=== PATIENT | male | born 1995 | race Asian ===

== ENCOUNTER 2019-12-28 14:00 | Outpatient (REF) | payer MEDICAID, SELFPAY | END 2019-12-28 14:01 | disposition home or self-care (01) | LOC: HO.LAB 14:00 | PROVIDERS: Visit Provider Internal Medicine | DX: Z20.828 Contact with and (suspected) exposure to other viral communicable diseases (principal) | CPT/HCPCS: C9803; U0003 ==

== ENCOUNTER 2020-03-21 23:15 | Emergency (ER) | payer MEDICAID, SELFPAY ==
[2020-03-21 23:33] VITALS: BP 154/92; PULSE 198; RESP 18; TEMP 36.5; O2SAT 96
[2020-03-22 00:05] VITALS: BP 143/72; PULSE 89; RESP 16; TEMP 37.4; O2SAT 97; BMI 85.2
--- NOTE | 2020-03-22 01:48 | ED.NAVMDI ---
HPI - Nausea/Vomiting/Diarrhea General Chief complaint: Nausea/Vomiting/Diarrhea Stated complaint: NAUSEA/VOMITING DUE TO EATING WEED GUMMIES Time Seen by Provider: 03/22/20 00:13 Source: patient Mode of arrival: ambulatory History of Present Illness HPI Narrative: This is a 24-year-old male brought in by his mother after he ate some marijuana gummies had approximately 8:30 p.m. this evening along with his melatonin. He states that he woke up and felt very nauseous with a couple of episodes of nonbloody vomiting and feeling dizzy. Otherwise, he denies any recent illnesses, fevers, chills. Related Data Previous Rx's Medication Instructions Recorded ondansetron HCl [Zofran] 4 mg PO Q8H PRN #4 tab 03/22/20 Allergies Allergy/AdvReac Type Severity Reaction Status Date / Time No Known Allergies Allergy Verified 03/22/20 00:05 Review of Systems Review of Systems: Pertinent positives and negatives as stated in HPI 10 point review of systems is otherwise negative. PMFSH Past Medical History Source: nursing notes reviewed Medical History No known health problems Social History Social History Alcohol intake: never Smoking Status: Never smoker Advance Directives: No Physical Exam Vital Signs: Vital Signs: Last Vital Signs Temp 99.3 F 03/22/20 00:05 Pulse 89 03/22/20 00:05 Resp 16 03/22/20 00:05 BP 143/72 H 03/22/20 00:05 Pulse Ox 97 03/22/20 00:05 Body Mass Index 85.2 VITAL SIGNS: Reviewed. GENERAL: Well developed, well nourished, in no acute distress. HEAD: Normocephalic/atraumatic, EYES: PERRLA, EOMI EARS: Ext canals without abnormality NOSE: Nares patent bilateral OROPHARYNX: no oral lesions noted, posterior pharynx clear NECK: Supple, no adenopathy LUNGS: Normal breath sounds. No adventitious sounds or accessory muscle use. SpO2<96> CARDIOVASCULAR: Regular rate and rhythm without noted murmurs ABDOMEN: Soft, non-tender, non-distended with bowel sounds. NEUROLOGIC: Drowsy but easily arousable and oriented x 4. Course Course Course Narrative: This is a 24-year-old male with history and clinical presentation consistent with minor marijuana intoxication that has completely resolved on re-evaluation. Patient is now tolerating oral intake and ambulating with a steady gait. He has a safe ride home with his mother and will be discharged in stable condition. Discharge Plan Discharge Clinical Impression: Cannabis intoxication Qualifiers: Complication of substance-induced condition: uncomplicated Qualified Code(s): F12.920 - Cannabis use, unspecified with intoxication, uncomplicated Patient Disposition: Home, Self-Care Instructions: Cannabis Abuse (ED) Additional Instructions: Please avoid eating marijuana gummies in the future. Return to the emergency department if you experience any acute worsening of your symptoms. Prescriptions: New ondansetron HCl [Zofran] 4 mg tablet 4 mg PO Q8H PRN (Reason: nausea and vomiting) Qty: 4 RF: 0 Referrals: Physician,None [Primary Care Provider] - 2 days Stand Alone Forms: Work/School Release
--- NOTE | 2020-03-22 02:09 | PC.NURSE ---
PT TOLERATING PO FLUIDS. REQUESTING WORK NOTE. NOTIFIED.
== END 2020-03-22 02:50 | disposition home or self-care (01) ==
PROVIDERS: Emergency Provider Student in an Organized Health Care Education/Training Program
DX: F12.920 Cannabis use, unspecified with intoxication, uncomplicated (principal); R11.2 Nausea with vomiting, unspecified; Z79.899 Other long term (current) drug therapy
CPT/HCPCS: 99283; 99284

== ENCOUNTER 2020-04-14 12:08 | Emergency (ER) | payer MEDICAID, SELFPAY ==
--- NOTE | ~2020-04-14 | XR_ITS ---
EXAMINATION: XR CHEST CLINICAL INFORMATION: Dyspnea COMPARISON: Previous chest x-ray May 2016 TECHNIQUE: 2 views of the chest were obtained. FINDINGS: No significant abnormality is noted involving the heart, lungs, mediastinum, bony thorax or soft tissues. XR/XR chest 2V IMPRESSION: Unremarkable examination.
[2020-04-14 12:22] VITALS: BP 159/89; PULSE 90; RESP 18; TEMP 37.1; O2SAT 98; BMI 38.6
[2020-04-14 17:00] VITALS: BP 164/96; PULSE 84; RESP 18; TEMP 36.8; O2SAT 99
--- NOTE | 2020-04-14 17:34 | ED.SOB ---
HPI - SOB/Dyspnea General Chief Complaint: Dyspnea Stated Complaint: DIFF BREATHING Time Seen by Provider: 04/14/20 13:35 Source: patient Mode of arrival: ambulatory History of Present Illness HPI Narrative: 24-year-old male with no significant past medical history presenting to the ED complaining of mild difficulty breathing x1 week with associated dry cough. Denies chest pain, pain with inspiration, nausea/vomiting, LE edema, history of blood clots, smoking, sick contacts MD elicited complaint: shortness of breath and cough Related Data Previous Rx's Medication Instructions Recorded ondansetron HCl [Zofran] 4 mg PO Q8H PRN #4 tab 03/22/20 Allergies Allergy/AdvReac Type Severity Reaction Status Date / Time No Known Allergies Allergy Verified 03/22/20 00:05 Review of Systems Review of Systems: Constitutional: No Fever, No Chills Cardiovascular: No Chest Pain, + SOB Respiratory: + Cough, No Sputum, No Wheezing Gastrointestinal: No Nausea, No Vomiting, No Diarrhea, No Abdominal pain Genitourinary: No Dysuria, No Hematuria Musculoskeletal: No joint pain, No Myalgias Skin: No Skin Lesions, No rash Yes all other systems are reviewed and are negative [facility] Past Medical History Attestation statement: The following information was validated with the patient. Medical History No known health problems Social History Social History Alcohol intake: never Smoking Status: Never smoker Use of substances other than those prescribed or required for medical reasons: No Advance Directives: No Advance Directives Information Provided: No Physical Exam Vital Signs: Vital Signs: Last Vital Signs Temp 98.2 F 04/14/20 17:00 Pulse 84 04/14/20 17:00 Resp 18 04/14/20 17:00 BP 164/96 H 04/14/20 17:00 Pulse Ox 99 04/14/20 17:00 Body Mass Index 38.6 Const: General: cooperative, healthy appearing, comfortable, no acute distress, well developed, alert, awake and Physically active Orientation/consciousness: patient oriented x3 Limitations: no limitations HENMT: Head: Yes normal to inspection Ears: hearing grossly normal bilaterally General nose exam: Normal external nose present Face and sinus: Yes normal facial exam Eyes: General: appearance normal, both eyes and all related structures EOM: EOMs intact bilaterally Neck: Neck: Yes normal visual inspection Resp: Effort & Inspection: normal respiratory effort Auscultation: clear to auscultation bilaterally, no rales, no rhonchi and no wheezes Cardio: Rate: regular rate Heart sounds: S1 normal heart sound present and S2 normal heart sound present Skin: Rashes: no rashes Wounds: no wounds Neuro: General: patient oriented x3 Gait exam (Neuro): Normal gait present Extrem: General: Yes normal to inspection and Yes no pedal edema Course Course Course Narrative: XR chest 2V IMPRESSION: Unremarkable examination. -- COVID-19 positive today > likely re-infection as last COVID-19 positive on 12/28/2019 MDM - SOB/Dyspnea MDM Narrative Medical decision making narrative: 24-year-old male with no significant past medical history presenting to the ED complaining of mild difficulty breathing x1 week with associated dry cough. On exam VSS, NAD/well-appearing, lungs CTA, no edema. Concern for viral syndrome/COVID-19. Low concern for ACS/PE, CHF, or bacterial infection Plan: CXR, COVID-19 testing Medical Records Attestation: I reviewed the patient's medical records. Lab Data Labs: Lab Results 04/14/20 Range/Units 17:17 Coronavirus (PCR) POSITIVE A (Negative) Influenza Type A (PCR) NEGATIVE (Negative) Influenza Type B (PCR) NEGATIVE (Negative) RSV RNA Qual (PCR) NEGATIVE (Negative) Discharge Plan Discharge Clinical Impression: COVID-19 Instructions: COVID-19 (Coronavirus Disease 2019) (ED) Additional Instructions: If you have constant or worsening chest pain, shortness of breath, or fever unresolved with Tylenol or Motrin at home return to the ED Use inhaler at home as needed At this time you will be okay for discharge. Please plan for self quarantine for 10- 14 days. Do not expose yourself to others. You may not go to work. Please continue to follow cold instructions and wash your hands frequently. You may take Tylenol as directed on the bottle for pain or fever. CDC Guidelines for home isolation: - Stay away from others - WEAR A MASK if you are sick AND STAY HOME - Cover your mouth and nose with a tissue when you cough or sneeze. Dispose of tissues in a lined trash can and wash your hands immediately with soap and water for at least 20 seconds. If soap and water are not available, clean hands with alcohol-based hand machine operator general that contains at least 60% alcohol. - Clean your hands often with soap and water for at least 20 seconds - Avoid touching your eyes, nose and mouth with unwashed hands - Do not share dishes, drinking glasses, cups, eating utensils, towels, or bedding with other people in your home. After using these items, wash them thoroughly with soap and water or put in the wine maker. - Clean high-touch surfaces in your isolation area ( sick room and bathroom) every day; let a caregiver clean and disinfect high-touch surfaces in other areas of the home. Clean the area or item with soap and water or another detergent if it is dirty. Then, use a household disinfectant. - Limit contact with pets and animals: If you must care for a pet, wash your hands before and after interacting with them) Prescriptions: No Action ondansetron HCl [Zofran] 4 mg tablet 4 mg PO Q8H PRN (Reason: nausea and vomiting) Qty: 4 RF: 0 Referrals: Physician,None [Primary Care Provider] - 2 days Stand Alone Forms: Work/School Release
[2020-04-14] MEDS: Benzonatate 100 MG CAPSULE 200 MG PO (18:00)
[2020-04-14 18:03] LABS: Influenza A PCR NEGATIVE (Negative); Influenza B PCR NEGATIVE (Negative); Resp Syncy Virus RNA Qual PCR NEGATIVE (Negative); SARS COV2 PCR INHOUSE POSITIVE (Negative)
[2020-04-14] MEDS: Albuterol Sulfate 90 MCG 8 GM INHALER 4 PUFF INHALE (18:44)
== END 2020-04-14 18:55 | disposition home or self-care (01) ==
PROVIDERS: Physician Assistant; Emergency Provider Emergency Medicine
DX: U07.1 COVID-19 (principal); R06.00 Dyspnea, unspecified; R05 Cough
CPT/HCPCS: 0241U; 36415; 71046; 99284

== ENCOUNTER → 2020-11-07 11:13 | Outpatient (BNVA) | payer OTHER, SELFPAY | PROVIDERS: Visit Provider Internal Medicine | DX: S97.82XA Crushing injury of left foot, initial encounter (principal); W22.8XXA Striking against or struck by other objects, initial encounter | CPT/HCPCS: 73630; 99203 ==

== ENCOUNTER → 2020-11-12 14:37 | Outpatient (BNVA) | payer OTHER, SELFPAY | PROVIDERS: Visit Provider Physician Assistant Medical | DX: S97.82XA Crushing injury of left foot, initial encounter (principal); X58.XXXA Exposure to other specified factors, initial encounter | CPT/HCPCS: 99213 ==

== ENCOUNTER 2023-04-29 23:10 | Emergency (ER) | payer BC, SELFPAY ==
--- NOTE | ~2023-04-29 | XR_ITS ---
EXAMINATION: XR CHEST CLINICAL INFORMATION: Cough COMPARISON: 04/14/2020 TECHNIQUE: Frontal view of the chest was obtained. FINDINGS: Lung volumes are symmetric. There is questionable mild patchy retrocardiac left lower lobe opacity. No evidence of pneumothorax, pleural effusion, or overt pulmonary edema. Cardiac silhouette appears mildly enlarged for technique. No acute osseous findings are seen. XR/XR chest 1V IMPRESSION: Questionable mild patchy retrocardiac left lower lobe opacity, which could reflect developing consolidation in the proper clinical setting.
[2023-04-29 23:47] VITALS: BP 184/106; PULSE 104; RESP 16; TEMP 37.1; O2SAT 98; BMI 44.0
--- NOTE | 2023-04-30 00:48 | ED.GENADULT ---
HPI - General Adult General Chief complaint: General Medical Stated complaint: Sob/Fever/Vomiting Time Seen by Provider: 04/30/23 00:28 Source: patient, RN notes reviewed and old records reviewed Mode of arrival: ambulatory Limitations: no limitations History of Present Illness HPI narrative: 27-year-old male with no significant past medical history presents for evaluation of cough for 1 month. He reports his symptoms are worsening over last week or 2. He reports multiple sick contacts at work He states he is chest pain with coughing, he feels that he has a sore throat due to the coughing. He states that he coughs so much that he vomits occasionally Denies any fevers, chills, leg swelling pain No recent travel Related Data Previous Rx's Medication Instructions Recorded ondansetron HCl 4 mg tablet 4 mg PO Q8H PRN nausea and 03/22/20 (Zofran) vomiting #4 tabs azithromycin 250 mg tablet 250 mg PO DAILY 4 days #4 tabs 04/30/23 cefuroxime axetil 500 mg tablet 500 mg PO Q12H #13 tabs 04/30/23 Allergies Allergy/AdvReac Type Severity Reaction Status Date / Time No Known Allergies Allergy Verified 03/22/20 00:05 Review of Systems Constitutional: Constitutional: Reports body ache(s), Denies chills, Denies fever(s), Reports malaise and Reports weakness ENT: Reports sore throat Cardiovascular: Cardiovascular: Reports dyspnea Respiratory: Respiratory: Reports chest congestion, Reports cough, Reports pain with cough and Reports dyspnea Gastrointestinal: Gastrointestinal: Denies abdominal pain, Denies nausea and Reports vomiting (Post-tussive) Musculoskeletal: Musculoskeletal: Denies back pain Integumentary/Breasts: Skin/Breast: Denies rash Neurologic: Reports weakness [facility] Past Medical History Medical History No known health problems Social History Social History Alcohol intake: never Advance Directives: No Advance Directives Information Provided: No Physical Exam ED Vital Signs: Vital Signs - 24 hr 04/29/23 23:47 Temperature 98.8 F Pulse Rate 104 H Respiratory Rate 16 Blood Pressure 184/106 H Pulse Oximetry 98 Oxygen Delivery Method Room Air BMI result Body Mass Index 44.0 Const General: healthy appearing, comfortable, no acute distress, alert and awake Nutritional Appearance: well nourished Orientation/consciousness: patient oriented x3 HENMT Head: Yes normocephalic and Yes atraumatic Throat: Yes posterior oropharynx normal Eyes Eyelids: Yes eyelids normal Conjunctivae: conjunctivae normal Sclerae: sclerae normal Corneas: corneas normal Pupils: Equal, round and reactive pupils present EOM: EOMs intact bilaterally Neck Neck: Yes full ROM Resp Effort & Inspection: normal respiratory effort, able to speak in complete sentences, no audible wheezes and not labored Auscultation: clear to auscultation bilaterally Cardio Rate: regular rate Rhythm: regular rhythm GI Inspection: No distended and Yes obesity Palpation (GI): Soft to palpation, not firm, nontender and no guarding Skin General skin exam: elasticity normal Neuro General: patient oriented x3 Cranial nerves: Yes Equal, round and reactive pupils present and Yes Bilaterally intact EOM present Cognition (Neuro): normal cognition Extrem Other: Moving all extremities well without any obvious deformities Course Reevaluation(s) Reevaluation #1: Patient tested positive for influenza, he also has a left lower lobe developing consolidation. Will treat with azithromycin and cefuroxime. Given that he has been having cough and body aches for a month with worsening symptoms over the last 2 weeks, it is more likely the head influenza for week or so and is now developing pneumonia, we will hold Tamiflu treatment at this time. Time: 01:48 Medical Decision Making Medical Decision Making MDM Narrative: 27-year-old male presents for evaluation of flu-like symptoms. Plan for viral swabs and chest x-ray. He is slightly tachycardic and significantly hypertensive on arrival. Plan to recheck blood pressure he has no history of hypertension. His physical exam is reassuring. Given the duration of his symptoms, lower some concern for pneumonia versus sinusitis. Differential Diagnosis Differential Diagnoses: The differential diagnosis associated with the presentation includes Upper respiratory infection Viral syndrome Pneumonia Sinusitis Lab Data Labs: Lab Results 04/30/23 Range/Units 00:03 Influenza Type A (PCR) POSITIVE A (Negative) Influenza Type B (PCR) NEGATIVE (Negative) RSV RNA Qual (PCR) NEGATIVE (Negative) SARS-CoV-2 RNA (RT-PCR) NEGATIVE (Negative) Independent Interpretation I performed an independent interpretation of an: Plain X-Ray (Hazy left lower lung field) Radiology Impression Discussion of test interpretation with radiology: I have reviewed the radiologist's reading. (Developing consolidation left lower lung dow) Discharge Plan Discharge Clinical Impression: Influenza A, Community acquired pneumonia, Elevated blood pressure reading Patient Disposition: Home, Self-Care Instructions: Influenza (ED), Community Acquired Pneumonia (ED) Additional Instructions: Take azithromycin daily for 4 additional days starting tomorrow. Take cefuroxime twice daily, your morning dose was given today so take 1 later today and then tomorrow you can do twice daily dosing Drink lots of fluids. Use Motrin/Tylenol for fevers and body aches Return for new or worsening symptoms Your blood pressure was significantly elevated today. Follow-up your with your primary doctor regarding this Prescriptions: New azithromycin 250 mg tablet 250 mg PO DAILY 4 Days Qty: 4 0RF Rx Instructions: start on day 2 of therapy cefuroxime axetil 500 mg tablet 500 mg PO Q12H Qty: 13 0RF No Action ondansetron HCl [Zofran] 4 mg tablet 4 mg PO Q8H PRN (Reason: nausea and vomiting) Qty: 4 0RF Stand Alone Forms: Work/School Release
[2023-04-30 00:55] LABS: Influenza A PCR POSITIVE (Negative); Influenza B PCR NEGATIVE (Negative); Resp Syncy Virus RNA Qual PCR NEGATIVE (Negative); SARS COV2 PCR INHOUSE NEGATIVE (Negative)
[2023-04-30] MEDS: Azithromycin 500 MG TABLET PO (02:04)
[2023-04-30] MEDS: cefuroxime axetiL 500 MG TABLET PO (02:04)
[2023-04-30 02:13] VITALS: BP 187/107; PULSE 82; RESP 16
== END 2023-04-30 02:15 | disposition home or self-care (01) ==
PROVIDERS: Emergency Provider Emergency Medicine
DX: J10.00 Influenza due to other identified influenza virus with unspecified type of pneumonia (principal); R03.0 Elevated blood-pressure reading, without diagnosis of hypertension; Z11.52 Encounter for screening for COVID-19; Z20.828 Contact with and (suspected) exposure to other viral communicable diseases
CPT/HCPCS: 0241U; 71045; 99283; 99284

== ENCOUNTER 2023-05-18 05:54 | Inpatient (IN) | payer BC, SELFPAY ==
[2023-05-18] VITALS (9 sets, daily range): BP systolic 160–198; BP diastolic 91–127; PULSE 89–109; RESP 13–22; TEMP 36.7–37.2; O2SAT 94–99; BMI 40.0
--- NOTE | ~2023-05-18 | CT_ITS ---
EXAMINATION: CT ANGIOGRAM OF THE CHEST WITH AND WITHOUT CONTRAST (CT PULMONARY ANGIOGRAM FOR PE) CLINICAL INFORMATION: Hemoptysis, cough, difficulty breathing. COMPARISON: Chest radiograph earlier today along with PA and lateral chest 06/18/2016 and 09/25/2010. TECHNIQUE: Prior to contrast administration, noncontrast localization images were obtained. Subsequently, multidetector volumetric imaging was performed from the thoracic inlet to below the diaphragms following the administration of 85 mL Omnipaque 350 intravenous contrast. No contrast reaction reported Sagittal, coronal, and MIP oblique sagittal reformatted images were obtained on the CT workstation, uploaded to PACS, and reviewed. This CT examination was performed using dose optimization techniques as appropriate, variously including the following: *Automated exposure control *Adjustment of mA and/or kV according to patient size (this includes techniques or standardized protocols for targeted exams where dose is matched to indication/reason for exam; i.e. extremities or head) *Use of iterative reconstruction technique Total exam dose-length product 596 mGy-cm FINDINGS: QUALITY OF STUDY/CONTRAST BOLUS: Satisfactory. PULMONARY ARTERIES: No pulmonary emboli. THORACIC AORTA: No aneurysm. LUNGS: Bilateral lower lobe ground-glass infiltrates are present and tree-in-bud nodularity/infiltrates present in the right upper lobe. Diffuse bronchial wall thickening is seen. PLEURA: No pleural effusion or pneumothorax. MEDIASTINUM: The heart is enlarged, predominantly the left ventricle and left atrium. There has been progressive cardiac enlargement from 2010 when the heart size was completely normal 04/13/2016 and when this was borderline enlarged, to the current exam when there is unequivocal enlargement. No pericardial effusion. No hilar or mediastinal lymphadenopathy. No evidence of septal bowing or right heart strain. CORONARY ARTERY CALCIFICATION: None visualized on this study. CHEST WALL/AXILLA: No axillary or internal mammary lymphadenopathy. OSSEOUS STRUCTURES: No acute or suspicious osseous abnormality. UPPER ABDOMEN: Spleen is enlarged at 14.7 cm. No reflux of contrast into the hepatic veins to suggest elevated right heart pressures. CT/CT angio chest PE protocol IMPRESSION: 1. No evidence of pulmonary emboli. 2. Bilateral lower lobe groundglass infiltrates and tree-in-bud nodularity/infiltrates in the right upper lobe. Differential diagnosis would include pneumonia, possibly viral. CHF is felt to be less likely, although cannot be entirely excluded, as there are no pleural effusions. 3. Progressively increasing cardiac size since 2011. Consider cardiomyopathy. 4. Splenomegaly. VTE: Negative.
--- NOTE | ~2023-05-18 | XR_ITS ---
EXAMINATION: XR CHEST CLINICAL INFORMATION: Follow-up heart failure COMPARISON: [facility] chest x-ray and chest CT May 18, 2023 TECHNIQUE: 2 views of the chest were obtained. FINDINGS: The cardiac silhouette is enlarged. There is improving pulmonary edema and pulmonary venous redistribution compared to previous exam. No pleural effusion. No pneumothorax. Bony structures are normal. XR/XR chest 2V IMPRESSION: Improving CHF.
--- NOTE | ~2023-05-18 | XR_ITS ---
EXAMINATION: XR CHEST CLINICAL INFORMATION: Pneumonia COMPARISON: 04/30/2023 TECHNIQUE: Frontal view of the chest was obtained. FINDINGS: Suboptimal assessment due to patient body habitus. The lungs are hypoinflated. There is prominence of the central vasculature and surrounding interstitium along with haziness, suspicious for vascular congestion and mild edema. No appreciable pneumothorax or significant pleural effusion. Cardiac silhouette is enlarged. No acute osseous findings are seen. XR/XR chest 1V IMPRESSION: Suboptimal assessment due to patient body habitus. Suspect vascular congestion and mild edema. Superimposed infectious consolidation would be difficult to exclude in the proper clinical setting.
--- NOTE | ~2023-05-18 | US_ITS ---
EXAMINATION: US RETROPERITONEAL LIMITED (RENAL ONLY) CLINICAL INFORMATION: Hypertensive kidney and heart disease. COMPARISON: None available. TECHNIQUE: Real-time imaging of the kidneys. FINDINGS: RIGHT KIDNEY: 11.6 x 6.3 x 7.0 cm (SAG x AP x TRV). The kidney is normal in size, contour, and echogenicity. Renal cortical thickness is normal. No calculi or focal parenchymal lesions. No hydronephrosis. LEFT KIDNEY: 13.4 x 5.5 x 5.7 cm (SAG x AP x TRV). The kidney is normal in size, contour, and echogenicity. Renal cortical thickness is normal. No calculi or focal parenchymal lesions. No hydronephrosis. US/US renal BI IMPRESSION: Normal unremarkable grayscale ultrasound evaluation of the kidneys. If there is a clinical suspicion for possible renal artery stenosis, would recommend correlation with follow-up Renal Doppler..
--- NOTE | 2023-05-18 07:27 | ED_ITS ---
HPI - General Adult General Chief complaint: General Medical Stated complaint: ammonia Time Seen by Provider: 05/18/23 07:04 Source: patient, family and old records reviewed Mode of arrival: ambulatory Limitations: no limitations History of Present Illness HPI narrative: 27 yo male denies any PMH recently seen and treated on 04/29 with ceftin and azithromycin for left lung CAP states he did well until last night around 9pm developed cough, intermittent mild hemoptysis, shortness of breath and chest feeling tight. He has never had this before. Not on thinners, no travel or procedures. has never had HTN before did take OTC cough and cold medications when it started. No fam hx of any issues. Notes since pneumonia cannot sleep flat at night. Did not have chest pain or pleuritic pain since his pneumonia bout. MD complaint: cough, dyspnea, hemoptysis Onset (ago): day(s) (9pm yesterday ) Location: chest Radiation: non-radiation Severity: moderate Relieving factors: none Exacerbating factors: other (exertion, movement) Associated symptoms: cough, loss of appetite, malaise, shortness of breath and other Treatments prior to arrival: none Related Data Allergies Allergy/AdvReac Type Severity Reaction Status Date / Time No Known Allergies Allergy Verified 03/22/20 00:05 Review of Systems 2 Review of Systems: Constitutional : No Fever, No Chills ENT/Mouth : No Hoarseness, No sore throat, No Rhinorrhea Eyes: No Redness, No Discharge, No Vision Changes Cardiovascular : No Chest Pain, positive SOB, positive Dyspnea on Exertion, No Edema Respiratory : positive Cough, pos Sputum, positive Wheezing, pos hemoptysis Gastrointestinal : No Nausea, No Vomiting, No Diarrhea, No abdominal Pain Genitourinary : No Dysuria, No Hematuria Musculoskeletal : No joint pain, No Myalgias Skin : No rash Neuro : No Weakness, No Numbness, No Headache Psych : No anxiety, depression All other systems reviewed and are negative PMFSH Past Medical History Attestation statement: The following information was validated with the patient. Source: old records reviewed Medical History (Updated 05/18/23 @ 12:46 by GRISEL Coles) Pneumonia No known health problems Social History Social History Alcohol intake: never Smoked in Last 30 Days: No Use of substances other than those prescribed or required for medical reasons: No Advance Directives: No Physical Exam ED Vital Signs: Vital Signs - 24 hr 05/18/23 06:09 05/18/23 06:15 05/18/23 07:45 Temperature 98.9 F Pulse Rate 109 H 104 H Respiratory Rate 20 22 H Blood Pressure 198/114 H 198/119 H 160/102 H Pulse Oximetry 94 99 Oxygen Delivery Method Room Air Room Air 05/18/23 08:00 05/18/23 09:32 Temperature 98.6 F Pulse Rate 89 98 Respiratory Rate 22 H 14 Blood Pressure 161/107 H Pulse Oximetry 94 Oxygen Delivery Method Room Air BMI result Body Mass Index 40.0 Appearance: Alert. Oriented X3. No acute distress. Eyes: Pupils equal, round and reactive to light. ENT: Pharynx normal. Neck: Normal inspection. Neck supple. CVS: Normal heart rate and rhythm. Pulses normal. Respiratory: No respiratory distress. Breath sounds diminished throughout with rales at bases, scant hemoptysis in trash barrel no clots noted. Abdomen: Soft and nontender. Skin: Skin warm and dry. Normal skin color. Normal skin turgor. Extremities: No lower extremity edema. No calf ttp Neuro: Oriented X 3. No motor deficit. No sensory deficit. Course Course Course Narrative: BP and symptoms improving with IV lasix 40mg Reevaluation(s) Reevaluation #1: elevated bili is mostly indirect could be gilberts or hepatic congestion not due to infection or severe sepsis [id number] Medications Administered Generic Name Dose Route Start Last Admin Trade Name Freq PRN Reason Stop Dose Admin Enoxaparin Sodium 40 mg 05/18/23 13:00 05/18/23 14:14 Enoxaparin Sodium 40 Mg/0.4 Ml Syringe SUBCUT 40 mg Q24H MITZI Administration Ceftriaxone Sodium 1 gm/ 50 mls @ 100 mls/hr 05/18/23 13:00 05/18/23 14:14 Sodium Chloride IV 100 mls/hr Q24H MITZI Administration Discontinued Medications Generic Name Dose Route Start Last Admin Trade Name Freq PRN Reason Stop Dose Admin Albuterol/Ipratropium 3 ml 05/18/23 07:40 05/18/23 07:45 Albuterol/Iprat 2.5/0.5mg 3 Ml Ampul.Neb INHALE 05/18/23 07:41 3 ml ONCE ONE Administration Furosemide 20 mg 05/18/23 07:28 05/18/23 07:46 Furosemide 20 Mg/2 Ml Vial IVPUSH 05/18/23 07:29 20 mg ONCE ONE Administration Protocol Furosemide 20 mg 05/18/23 08:34 05/18/23 09:24 Furosemide 20 Mg/2 Ml Vial IVPUSH 05/18/23 08:35 20 mg ONCE ONE Administration Protocol Medical Decision Making Medical Decision Making [facility] Narrative: 27 yo male with recent CAP dx on 04/29 treated with ceftin and azithromycin states he has had orthopnea since then developed acute onset dyspnea at 9pm with hemoptysis which is mild based off what he is doing here no hx of bleeding no risk factors for bleeding no fam hx of this issue. At this time labs, IV lasix based off of HTN/CXR, EKG, troponin and CTA of the chest. Some of his symptoms sound like a cardiomyopathy as well. Differential Diagnosis Differential Diagnoses: The differential diagnosis associated with the presentation includes bronchitis, cardiomyopathy post illness, pulm edema, hemoptysis, mass Admission/Observation Consideration of admission/observation: Escalation of care including admission/observation considered will admit for further workup suspect more CHF no fevers abrupt onset has had orthopnea Consult Healthcare Provider Management of the patient was discussed with: Hospitalist (will admit) and Corporate Webmaster (Dr. Summers aware) Lab Data [facility] Lab Attestation statement: I reviewed the patient's lab results. 05/18/23 07:33 05/18/23 07:33 Labs: Lab Results 05/18/23 05/18/23 Range/Units 07:33 10:46 WBC 13.5 H (4.8-10.8) X10*3/uL RBC 5.79 (4.60-5.80) X10*6/uL Hgb 14.4 (14.0-18.0) g/dl Hct 41.4 L (42.0-52.0) % MCV 71.5 L (80.0-98.0) fL MCH 24.9 L (27.0-33.0) pg MCHC 34.8 (31.0-36.0) g/dl RDW 13.3 (11.0-16.0) % Plt Count 341 (160-400) X10*3/uL MPV 11.0 (9.4-12.4) fL Immature Gran % (Auto) 0.4 (0.0-0.4) % Neut % (Auto) 78.6 H (45-73) % Lymph % (Auto) 14.5 L (20-40) % [place] % (Auto) 5.0 (2-11) % Eos % (Auto) 1.0 (0-4) % Baso % (Auto) 0.5 (0-2) % Lymph # (Auto) 2.0 (1.2-4.9) X10*3/uL [place] # (Auto) 0.7 (0.1-1.2) X10*3/uL Eos # (Auto) 0.1 (0.0-0.4) X10*3/uL Baso # (Auto) 0.1 (0.0-0.2) X10*3/uL Abs Immat Gran (auto) 0.05 H (0.00-0.03) X10*3/uL Absolute Neuts (auto) 10.6 H (2.0-8.3) x10*3/uL Absolute Nucleated RBC 0.000 (0.0-0.012) X10*3/uL Nucleated RBC % (auto) 0.0 (0.0-0.2) /100WBC PT 13.1 (11.1-13.3) SEC INR 1.1 (0.9-1.1) Sodium 137 (135-145) mmol/L Potassium 3.5 (3.3-5.1) mmol/L Chloride 102 (96-108) mmol/L Carbon Dioxide 26 (22-29) mmol/L Anion Gap 13 (12-20) BUN 14 (9-16) mg/dL Creatinine 0.78 (0.5-1.4) mg/dL Estim Creat Clear Calc 203.1 Estimated GFR > 60 Random Glucose 104 (60-115) mg/dL Lactic Acid 1.2 (0.5-2.0) mmol/L Calcium 9.0 (8.4-10.2) mg/dL Magnesium 2.0 (1.6-2.6) mg/dL Total Bilirubin 2.2 H (0.0-1.0) mg/dL Direct Bilirubin 0.5 (0.0-0.5) mg/dL AST 41 H (5-37) U/L ALT 34 (0-40) U/L Alkaline Phosphatase 63 (39-117) U/L Troponin I High Sens 19.4 (<3.5-35.0) ng/L B-Natriuretic Peptide 369 H (<100) pg/mL Total Protein 7.3 (6.5-8.0) g/dL Albumin 4.0 (3.5-5.0) g/dL Procalcitonin 0.04 ng/mL Urine Opiates Screen Not Detected (Not Detect) Urine Fentanyl Screen Not Detected (Not Detect) Ur Barbiturates Screen Not Detected (Not Detect) Ur Phencyclidine Scrn Not Detected (Not Detect) Ur Amphetamines Screen Not Detected (Not Detect) U Benzodiazepines Scrn Not Detected (Not Detect) Urine Cocaine Screen Not Detected (Not Detect) U Marijuana (THC) Screen Not Detected (Not Detect) Influenza Type A (PCR) NEGATIVE (Negative) Influenza Type B (PCR) NEGATIVE (Negative) RSV RNA Qual (PCR) NEGATIVE (Negative) SARS-CoV-2 RNA (RT-PCR) NEGATIVE (Negative) Independent Interpretation I performed an independent interpretation of an: EKG, Plain X-Ray (edema) and CT Scan (GGO atypical viral infection vs CHF) Interpretation: Rate: 104 Rhythm: sinus tachycardia [place]: left Normal P waves. Normal NIGEL. Normal QRS complex. ST T wave : no CONNIE, nonspecific ST T wave changes lateral leads qTC: 515 prior studies: no acute ischemia The study has been interpreted contemporaneously by me. . Radiology Impression Discussion of test interpretation with radiology: I have reviewed the radiologist's reading. Independent Historian Clinical information obtained from an independent historian. History obtained from or confirmed by: Parent External Record Review External record reviewed: Inpatient record Critical Care Time Critical Care Time Critical Care Time: Yes Total Critical Care Time: 45 Attestation: medical consult, repeat medications IV lasix, reassessment, family discussion, admission I attest to this time spent taking care of the patient Discharge Plan Discharge Clinical Impression: Acute dyspnea, Cough with hemoptysis, Elevated brain natriuretic peptide (BNP) level Cardiomyopathy Qualifiers: Cardiomyopathy type: unspecified Qualified Code(s): I42.9 - Cardiomyopathy, unspecified HTN (hypertension) Qualifiers: Hypertension type: unspecified Qualified Code(s): I10 - Essential (primary) hypertension Patient Disposition: Admitted As Inpatient
[2023-05-18 07:38] LABS: MANUAL DIFF FLAG NO
[2023-05-18 07:42] LABS: Basophils Absolute Auto 0.1 X10*3/uL (0.0-0.2); Basophils Percent Auto 0.5 % (0-2); Eosinophils Absolute Auto 0.1 X10*3/uL (0.0-0.4); Hematocrit 41.4 % (42.0-52.0); Hemoglobin 14.4 g/dl (14.0-18.0); Imm Gran Abs Auto 0.05 X10*3/uL (0.00-0.03); Imm Gran Pct Auto 0.4 % (0.0-0.4); Lymphocytes Percent Auto 14.5 % (20-40); Mean Corpuscular HGB Conc 34.8 g/dl (31.0-36.0); Mean Corpuscular Hemoglobin 24.9 pg (27.0-33.0); Mean Corpuscular Volume 71.5 fL (80.0-98.0); Monocytes Absolute Auto 0.7 X10*3/uL (0.1-1.2); Neutrophils Absolute Auto 10.6 x10*3/uL (2.0-8.3); Neutrophils Percent Auto 78.6 % (45-73); Platelet Count 341 X10*3/uL (160-400); Red Blood Count 5.79 X10*6/uL (4.60-5.80); Red Cell Distribution Width 13.3 % (11.0-16.0); White Blood Count 13.5 X10*3/uL (4.8-10.8)
[2023-05-18] MEDS: Albuterol/Iprat 2.5/0.5MG 3 ML AMPUL.NEB INHALE (07:45)
[2023-05-18] MEDS: Furosemide 20 MG/2 ML VIAL IVPUSH ×2 (07:46→09:24)
[2023-05-18 07:48] LABS: INTERNATIONAL NORM RATIO 1.1 (0.9-1.1); Prothrombin Time 13.1 SEC (11.1-13.3)
[2023-05-18 07:56] LABS: Lactic Acid 1.2 mmol/L (0.5-2.0)
[2023-05-18 08:07] LABS: B Type Natriuretic Peptide 369 pg/mL (<100)
[2023-05-18 08:11] LABS: Alanine Aminotransferase 34 U/L (0-40); Alkaline Phosphatase 63 U/L (39-117); Anion Gap 13 (12-20); Aspartate Amino Transferase 41 U/L (5-37); Bilirubin Direct 0.5 mg/dL (0.0-0.5); Bilirubin Total 2.2 mg/dL (0.0-1.0); Blood Urea Nitrogen 14 mg/dL (9-16); Carbon Dioxide 26 mmol/L (22-29); Chloride 102 mmol/L (96-108); Creatinine Clr Calc Pharmacy 203.1; Estimated Glomerular Filt Rate > 60; Glucose Random 104 mg/dL (60-115); Potassium 3.5 mmol/L (3.3-5.1); Sodium 137 mmol/L (135-145); Total Protein 7.3 g/dL (6.5-8.0)
--- NOTE | 2023-05-18 08:21 | PC.NURSE ---
IV established, labs obtained and sent. medicated per the APR. patient ambulated to bathroom with steady gait. continues with productive cough w/ blood mixed with sputum.
[2023-05-18 08:22] LABS: Procalcitonin 0.04 ng/mL
--- NOTE | 2023-05-18 08:34 | ECG_ITS ---
Test Reason : sob Blood Pressure : / mmHG Vent. Rate : 104 BPM Atrial Rate : 104 BPM P-R Int : 156 ms QRS Dur : 104 ms QT Int : 392 ms P-R-T Axes : 059 001 069 degrees QTc Int : 515 ms Sinus tachycardia Possible Left atrial enlargement Nonspecific ST and T wave abnormality Abnormal ECG When compared with ECG of 04-MAY-2018 18:19, Non-specific change in ST segment in Inferior leads ST now depressed in Lateral leads Nonspecific T wave abnormality now evident in Lateral leads QT has lengthened Referred By: Christine Farah Electronically Signed By:Jevon Summers
[2023-05-18 08:42] LABS: Troponin-I High Sensitivity 19.4 ng/L (<3.5-35.0)
--- NOTE | 2023-05-18 09:31 | PC.NURSE ---
patient medicated per the MAR, encouraged to use urinal at bedside. placed on child monitor sinus rhythm. reports improvement in breathing at this time. awaiting ct scan results.
[2023-05-18 09:42] LABS: Influenza A PCR NEGATIVE (Negative); Influenza B PCR NEGATIVE (Negative); Resp Syncy Virus RNA Qual PCR NEGATIVE (Negative); SARS COV2 PCR INHOUSE NEGATIVE (Negative)
[2023-05-18 10:59] LABS: Amphetamine Screen Urine Not Detected (Not Detect); Barbiturates, Urine Not Detected (Not Detect); Benzodiazepines Screen Urine Not Detected (Not Detect); Cannabinoid Screen Urine Not Detected (Not Detect); Cocaine Screen Urine Not Detected (Not Detect); Fentanyl, urine Not Detected (Not Detect); Opiate Screen Urine Not Detected (Not Detect); Phencyclidine Screen Urine Not Detected (Not Detect)
--- NOTE | 2023-05-18 12:17 | P.HPHOSP_ITS ---
History of Present Illness Date of Service: 05/18/23 Attending physician on admission: [facility] Chief Complaint: sob, orthopnea, cough 27 year old male without significant past medical history presented to the ED for evaluation of orthopnea, cough with blood tinged brown/yellow sputum productive that recurred last night. The patient was diagnosed with flu and pneumonia on 04/29 and was discharged with azithromycin and ceftin which he completed. He states he had been feeling well until last night when his productive cough recurred with orthopnea. No fevers, chills, abd pain, n/v/d, miller, edema, weight gain, lightheadedness, or chest pain. No prior history of similar symptoms. No known FH of chf or suddent cardiac . On arrrival, pt hypertensive to 198/119, tachycardic to 109, tachypneic without hypoxia. Blood pressure improved to 161/107 on admission following diuresis. There is a leukocytosis 13.5. Renal function and lytes normal. Total bili 2.2, direct bili 0.5, ast 41, alt 34. Trop 19.4, bnp 369. PCT 0.04. Urine tox screen negative. Negative for flu, rsv, covid 19. CTA chest negative for PE. Shows bilateral lower lobe groundglass infiltrates in tree-in-bud nodularity/infiltrates in the right upper lobe differential would include pneumonia, possibly viral. CHF can not be entirely excluded. No pleural effusions. There is also progressively increased cardiac size since 11/01, consider cardiomyopathy. EKG shows sinus tachycardia, rate [address]/T-wave abnormality. No acute ischemic changes. In the ED, has received 40mg IV lasix. Reports occassional alcohol use. Former MJ smoker who quit 1+ years ago. No other illicit substance use. No cigarette smoking. Review of Systems 2 Review of Systems: General: No fevers, malaise, unintentional weight loss HEENT: No blurred vision, diplopia. No sore throat, nasal congestion, rhinorrhea, sinus pain, ear pain Cardiovascular: No chest pain, palpitations, or leg edema Respiratory: +shortness of breath+orthopnea, +cough. No wheezing GI: No abdominal pain, nausea, vomiting, diarrhea, constipation, melena, hematochezia : No dysuria, hematuria, increased urinary frequency, decreased urinary output MSK: No myalgia, back pain Neuro: No headaches, weakness, paresthesias Skin: No rashes or lesions [facility] Medical History Pneumonia No known health problems Social History Household Members: Family Housing: House Do you presently have visiting nurse or other home services: No Alcohol intake: never Patient Tobacco Use Status: Never used Tobacco Smoked in Last 30 Days: No Patient Interested in Nicotine Replacement: No Patient Given Instructions on How to Stop Smoking: No Second Hand Smoke Exposure: No Use of substances other than those prescribed or required for medical reasons: No Currently Displaying Signs/Symptoms of Drug Intoxication Withdrawal: No Any prior treatment program specific to substance use: No Have you been hit, kicked, punched, or otherwise hurt by someone within the past year? If so, by whom?: No Is there a partner from a previous relationship who is making you feel unsafe now?: No Are you made to feel afraid or neglected: No Advance Directives: No Do you have thoughts of harming others: None Do you have a plan to hurt others: No Plan Recently lost weight without trying: No Eating poorly because of decreased appetite: No Nutrition Risks: No Nutritional Risk service: No Meds Allergies Allergy/AdvReac Type Severity Reaction Status Date / Time No Known Allergies Allergy Verified 03/22/20 00:05 Home Medications Medication Instructions Recorded Confirmed Last Taken Type No Known Home Meds 05/19/23 05/19/23 Unknown History Physical Exam 2 Vital Signs and Narrative: Vital Signs: Last Vital Signs Temp 98.6 F 05/18/23 09:32 Pulse 98 05/18/23 09:32 Resp 14 05/18/23 09:32 BP 161/107 H 05/18/23 09:32 Pulse Ox 94 05/18/23 09:32 O2 Del Method Room Air 05/18/23 09:32 BMI result Body Mass Index 40.0 Constitutional - Awake and Alert, No apparent distress Eyes - PERRLA, EOMI Cardiovascular - S1S2, RRR, No edema Respiratory - Normal lung expansion, Normal respiratory effort, No respiratory distress when seated in semi fowlers, orthopnea noted, scattered crackles bilaterally Gastrointestinal - NT / ND; +BS; No rebound or guarding Extremities - no calf tenderness bilaterally, no swelling Skin - Warm/Dry Neurological - Alert & oriented x3 Psychological - Appropriate affect Results Labs 05/19/23 04:58 05/19/23 04:58 Labs: Laboratory Results - last 24 hr 05/18/23 05/18/23 07:33 10:46 MCV 71.5 L MCH 24.9 L MCHC 34.8 RDW 13.3 Plt Count 341 MPV 11.0 Immature Gran % (Auto) 0.4 Neut % (Auto) 78.6 H Lymph % (Auto) 14.5 L [place] % (Auto) 5.0 Eos % (Auto) 1.0 Baso % (Auto) 0.5 Lymph # (Auto) 2.0 [place] # (Auto) 0.7 Eos # (Auto) 0.1 Baso # (Auto) 0.1 Abs Immat Gran (auto) 0.05 H Absolute Neuts (auto) 10.6 H Absolute Nucleated RBC 0.000 Nucleated RBC % (auto) 0.0 PT 13.1 INR 1.1 Anion Gap 13 Estim Creat Clear Calc 203.1 Estimated GFR > 60 Random Glucose 104 Lactic Acid 1.2 Calcium 9.0 Magnesium 2.0 Total Bilirubin 2.2 H Direct Bilirubin 0.5 AST 41 H ALT 34 Alkaline Phosphatase 63 Troponin I High Sens 19.4 B-Natriuretic Peptide 369 H Total Protein 7.3 Albumin 4.0 Procalcitonin 0.04 Urine Opiates Screen Not Detected Urine Fentanyl Screen Not Detected Ur Barbiturates Screen Not Detected Ur Phencyclidine Scrn Not Detected Ur Amphetamines Screen Not Detected U Benzodiazepines Scrn Not Detected Urine Cocaine Screen Not Detected U Marijuana (THC) Screen Not Detected Influenza Type A (PCR) NEGATIVE Influenza Type B (PCR) NEGATIVE RSV RNA Qual (PCR) NEGATIVE SARS-CoV-2 RNA (RT-PCR) NEGATIVE Imaging Radiologist's Impressions: Impressions Chest X-Ray 05/18/23 06:23 IMPRESSION: Suboptimal assessment due to patient body habitus. Suspect vascular congestion and mild edema. Superimposed infectious consolidation would be difficult to exclude in the proper clinical setting. Chest CTA 05/18/23 08:52 IMPRESSION: 1. No evidence of pulmonary emboli. 2. Bilateral lower lobe groundglass infiltrates and tree-in-bud nodularity/infiltrates in the right upper lobe. Differential diagnosis would include pneumonia, possibly viral. CHF is felt to be less likely, although cannot be entirely excluded, as there are no pleural effusions. 3. Progressively increasing cardiac size since 2011. Consider cardiomyopathy. 4. Splenomegaly. VTE: Negative. Assessment and Plan (1) Pneumonia: Status: Acute (2) CHF (congestive heart failure): Status: Acute (3) Cough with hemoptysis: Status: Acute (4) Cardiomyopathy: Qualifiers: Cardiomyopathy type: unspecified Qualified Code(s): I42.9 - Cardiomyopathy, unspecified Status: Acute Plan 27 year old male without significant past medical history admitted for pneumonia with CHF exacerbation #Acute pneumonia with sepsis -recent history of influenza 04/29 treated for bacterial pneumonia. Increase in focal opacitied in bilateral lower lobes and RUL concerning for increased pneumonia, viral vs bacterial. given productive cough/blood tinged sputum and leukocytosis cannot exclude bacterial pneumonia. No PE -leukocytosis 13,5m tachycardia, tachypnea. Hyperbilirubinemia likely r/t liver disease, not severe sepsis -IV ctx and doxycycline (initiated 05/17) -albuterol prn -symptomatic management -follow cbc, cultures #New onset CHF -?r/t viral infection/pneumonia -echo ordered -cardiology cosult -iv lasix 40mg daily -cardiac diet -strict I&O -follow renal function/lytes. trend bnp #HTN -related to above, improved with iv diuresis -continue monitoring blood pressures #Morbid obesity with bmi 40 -weight loss efforts encouraged dvt prophylaxis- lovenox full code pt requires inpt stay at least 2 midnight for management of new onset chf likely related to recent viral infection requiring iv diuresis, echo, close monitoring of I&O, and expert consultation Quality Stroke Does the patient have a stroke diagnosis?: No VTE Prior VTE?: No VTE Risk Level:: Medical - moderate - high VTE Device Contraindication: Treatment Not Indicated VTE Drug Contraindication: N/A - Med Ordered
--- NOTE | 2023-05-18 12:23 | PHA.MEDREC ---
Pharmacy Consult ? Medication Reconciliation Pharmacy has completed the medication reconciliation. Spoke to patient, he confirmed he doesn't take any medications at home.
[2023-05-18] MEDS: Enoxaparin Sodium 40 MG/0.4 ML SYRINGE SUBCUT (14:14)
[2023-05-18] MEDS: cefTRIAXone sodium 1 GM in 0.9 % Sodium Chloride 50 ML IV (14:14)
[2023-05-18] MEDS: 0.9 % Sodium Chloride Flush 3 ML SYRINGE IVFLUSH (15:34)
[2023-05-18] MEDS: Doxycycline Hyclate 100 MG in 0.9 % Sodium Chloride 250 ML 166.67 MG IV (15:34)
[2023-05-18] MEDS: hydrALAZINE HCl 20 MG/ML VIAL 10 MG IVPUSH (17:01)
[2023-05-18] MEDS: guaiFENesin 200 MG/10 ML 10 ML LIQUID PO (18:28)
[2023-05-18] MEDS: Nitroglycerin 2 % Oint 1 GM Packet 0.5 INCH TRANSDERMA (18:28)
--- NOTE | 2023-05-18 18:31 | PC.NURSE ---
prn cough medication utilized, patient remains hypertensive - 0.5in nitropaste applied to left chest
--- NOTE | 2023-05-18 19:46 | PC.NURSE ---
Assumed care of pt. Pt lying on stretcher, no acute distress at this time. Continuing plan of care for admission.
[2023-05-18] MEDS: hydrALAZINE HCl 25 MG TABLET PO (21:00)
[2023-05-19] VITALS (10 sets, daily range): BP systolic 137–179; BP diastolic 68–110; PULSE 86–104; RESP 15–28; TEMP 36.2–37; O2SAT 96–98
[2023-05-19] MEDS: 0.9 % Sodium Chloride Flush 3 ML SYRINGE IVFLUSH ×3 (00:55→15:04)
[2023-05-19] MEDS: Doxycycline Hyclate 100 MG in 0.9 % Sodium Chloride 250 ML 166.67 MG IV ×2 (01:43→15:01)
[2023-05-19] MEDS: Acetaminophen 325 MG TABLET 650 MG PO (01:43)
[2023-05-19 06:17] LABS: Hematocrit 41.7 % (42.0-52.0); Mean Corpuscular HGB Conc 33.6 g/dl (31.0-36.0); Mean Corpuscular Hemoglobin 24.3 pg (27.0-33.0); Mean Corpuscular Volume 72.3 fL (80.0-98.0); Mean Platelet Volume 11.2 fL (9.4-12.4); Platelet Count 332 X10*3/uL (160-400); Red Blood Count 5.77 X10*6/uL (4.60-5.80); Red Cell Distribution Width 13.3 % (11.0-16.0); White Blood Count 11.8 X10*3/uL (4.8-10.8)
[2023-05-19] MEDS: Albuterol Sulfate (0.083%) 2.5 MG/3 ML VIAL.NEB INHALE (06:29)
[2023-05-19 06:37] LABS: B Type Natriuretic Peptide 288 pg/mL (<100)
[2023-05-19 06:39] LABS: Anion Gap 13 (12-20); Blood Urea Nitrogen 10 mg/dL (9-16); Calcium 8.8 mg/dL (8.4-10.2); Carbon Dioxide 25 mmol/L (22-29); Chloride 103 mmol/L (96-108); Creatinine Clr Calc Pharmacy 190.9; Estimated Glomerular Filt Rate > 60; Glucose Random 104 mg/dL (60-115); Sodium 138 mmol/L (135-145)
--- NOTE | 2023-05-19 07:00 | CA_ITS ---
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 There is severely increased left ventricular wall thickness. The left ventricular systolic function is severely decreased. The visually estimated ejection fraction is between 15-20%. There is severe global hypokinesis. Diastolic function is indeterminate on the basis of available data. - Mildly increased right ventricular cavity size. There is mildly decreased right ventricular systolic function. - The left atrium is severely dilated. - Moderately elevated right atrial pressure. There is no evidence of pulmonary hypertension. - There is mild dilatation of the sinuses of Valsalva measuring 3.80 cm. Findings Procedure Information Contrast agent, definity, is being given per protocol without apparent complications. Left Ventricle Severely increased left ventricular cavity size. There is severely increased left ventricular wall thickness. The left ventricular systolic function is severely decreased. The visually estimated ejection fraction is between 15 20%. There is severe global hypokinesis. Diastolic function is indeterminate on the basis of available data. Right Ventricle Mildly increased right ventricular cavity size. There is mildly decreased right ventricular systolic function. Atria The left atrium is severely dilated. Aortic Valve Normal aortic valve structure and function. There is no aortic valve stenosis. There is no aortic valve regurgitation. Mitral Valve The mitral valve appears normal. There is no mitral valve regurgitation. There is no mitral valve stenosis. Pulmonic Valve The pulmonic valve is likely normal. Tricuspid Valve Normal tricuspid valve structure and function. Moderately elevated right atrial pressure. There is no evidence of pulmonary hypertension. Great Vessels There is mild dilatation of the sinuses of Valsalva measuring 3.80 cm. The visualized portions of the pulmonary artery and branches are normal. Venous The inferior vena cava is dilated and collapses greater than 50% with inspiration. Pericardium/Pleural There is no evidence of pericardial effusion. Prior Study Comparison No prior study available for comparison. Measurements 2D Linear Measurements IVSd: 1.43 0.6-0.9/0.6-1.0 cm LVIDd: 7.13 3.9-5.3/4.2-5.9 cm LVIDd Index: 2.81 2.4-3.2/2.2-3.1 cm/m2 LVIDs: 6.20 2.0-3.6 cm LVPWd: 1.37 0.7-1.1 cm LA Diam: 5.20 2.7-3.8/3.0-4.0 cm LAIDs Index: 2.05 1.5-2.3 cm/m2 LV Mass: 641.35 67-162/88-224 g LV Mass Index: 252.50 43-95/49-115 g/m2 LVOT Diam: 2.60 3.0+(-)1.3 cm 2D Systolic Function EF 4C: 23.20 >55% EF 2C: 4.10 >55% EF BiP: 16.20 >55% Mitral Valve MV Pk E: 0.90 MV Decel Time: 162.00 E'Lateral: 9.68 E'Medial: 7.72 E/E' Med: 11.60 E/E' Lat: 9.20 PHT: 47.00 MVA PHT: 4.68 Decel Noble: 5.53 Aortic Valve AoV Pk Jefry: 1.22 AoV Mn Jefry: 0.88 AoV VTI: 0.21 AoV Pk Grad: 6.00 Aov Mn Grad: 4.00 CHRISTIAN Cont.VTI: 2.72 LVOT LVOT Pk Jefry: 0.66 LVOT Mn Jefry: 0.46 LVOT VTI: 0.11 LVOT Pk Grad: 2.00 LVOT Mn Grad: 1.00 LVOT Diam: 2.60 LVOT Area: 5.31 Diastolic Function MV Pk E: 0.90 E'Medial: 7.72 E/E' Med: 11.60 E' Laterial: 9.68 E/E' Lat: 9.20 Right Ventricle TAPSE (mm): 23.80 TVS' Jefry: 10.30 Tricuspid Valve TR Pk Jefry: 2.50 TR Pk Grad: 25.00 RA Press: 8.00 RVSP: 33.00 Great Vessels Aorta Sinus of Valsalva: 3.80 2.0-3.5 cm Pulmonary Valve PV Pk Jefry: 1.02 Peak PV Grad: 4.00 Updated in Other Vendor System with Status of Final Jevon Summers MD electronically signed on 05/19/2023 8:16:36 PM with status of Final
[2023-05-19] MEDS: Potassium Chloride ER 20 MEQ TAB.ER.PRT 40 MEQ PO ×3 (07:23→20:55)
[2023-05-19 07:32] LABS: Magnesium 2.1 mg/dL (1.6-2.6)
--- NOTE | 2023-05-19 07:32 | PC.NURSE ---
assumed care of pt at 0700, pt a&ox4, hypertensive, other vss, pt reports improvement in breathing after am nebulizer treatment. medicated per APR. plan for pt to transport to assigned room.
[2023-05-19] MEDS: Furosemide 40 MG/4 ML VIAL IVPUSH ×2 (08:46→17:34)
[2023-05-19] MEDS: hydrALAZINE HCl 25 MG TABLET PO (08:46)
--- NOTE | 2023-05-19 09:23 | P.CONCA_ITS ---
History of Present Illness History of Present Illness Date of Service: 05/19/23 Chief complaint: CHF Narrative: [age] year gentleman who was treated for pneumonia and viral illness 2 weeks ago now presenting with worsening shortness of breath and orthopnea. He also had some hemoptysis. He said he was getting very similar symptoms before except hemoptysis and had a orthopnea and dyspnea on exertion we did not improve with antibiotics. In the ER was noticed to be hypertensive and also blood workup showed elevated BNP level. Chest x-ray was concerning for congestion. He was admitted for further management. He since has been getting IV diuretics. He is saying that he is feeling somewhat better. He is denying any chest discomfort. No family history of cardiomyopathy. He drinks alcohol over the weekends but is not a heavy drinker in general. No drug abuse reported. [facility]LY [facility] Past Medical History Medical History Pneumonia No known health problems Social History Social History Household Members: Family Housing: House Do you presently have visiting nurse or other home services: No Alcohol intake: never Patient Tobacco Use Status: Never used Tobacco Smoked in Last 30 Days: No Patient Interested in Nicotine Replacement: No Patient Given Instructions on How to Stop Smoking: No Second Hand Smoke Exposure: No Use of substances other than those prescribed or required for medical reasons: No Currently Displaying Signs/Symptoms of Drug Intoxication Withdrawal: No Any prior treatment program specific to substance use: No Have you been hit, kicked, punched, or otherwise hurt by someone within the past year? If so, by whom?: No Is there a partner from a previous relationship who is making you feel unsafe now?: No Are you made to feel afraid or neglected: No Advance Directives: No Do you have thoughts of harming others: None Do you have a plan to hurt others: No Plan Recently lost weight without trying: No Eating poorly because of decreased appetite: No Nutrition Risks: No Nutritional Risk service: No Meds Allergies Allergy/AdvReac Type Severity Reaction Status Date / Time No Known Allergies Allergy Verified 03/22/20 00:05 Active Medications: Current Medications Acetaminophen (Acetaminophen 325 Mg Tablet) 650 mg PO Q6H PRN PRN Reason: Pain, Mild (Pain Scale 1-3) Last Admin: 05/19/23 01:43 Dose: 650 mg Albuterol Sulfate (Albuterol Sulfate (0.083%) 2.5 Mg/3 Ml Vial.Neb) 2.5 mg INHALE Q2H PRN PRN Reason: Shortness of Breath/Wheezing Last Admin: 05/19/23 06:29 Dose: 2.5 mg Enoxaparin Sodium (Enoxaparin Sodium 40 Mg/0.4 Ml Syringe) 40 mg SUBCUT Q24H [facility] Last Admin: 05/18/23 14:14 Dose: 40 mg Furosemide (Furosemide 40 Mg/4 Ml Vial) 40 mg IVPUSH DAILY [facility]; Protocol Last Admin: 05/19/23 08:46 Dose: 40 mg Guaifenesin (Guaifenesin 200 Mg/10 Ml 10 Ml Liquid) 10 ml PO Q4H PRN PRN Reason: Cough Last Admin: 05/18/23 18:28 Dose: 10 ml Hydralazine HCl (Hydralazine Hcl 25 Mg Tablet) 25 mg PO TID [facility]; Protocol Last Admin: 05/19/23 08:46 Dose: 25 mg Ceftriaxone Sodium 1 gm/ (Sodium Chloride) 50 mls @ 100 mls/hr IV Q24H [facility] Last Infusion: 05/18/23 15:34 Dose: Infused Doxycycline Hyclate 100 mg/ (Sodium Chloride) 250 mls @ 166.67 mls/hr IV Q12H [facility] Last Infusion: 05/19/23 03:27 Dose: Infused Ondansetron HCl (Ondansetron Hcl 4 Mg/2 Ml Vial) 4 mg IVPUSH Q8H PRN PRN Reason: Nausea and Vomiting Potassium Chloride (Potassium Chloride Er 20 Meq Tab.Er.Prt) 40 meq PO Q6H [facility] Stop: 05/19/23 19:16 Last Admin: 05/19/23 07:23 Dose: 40 meq Senna (Sennosides 8.6 Mg Tablet) 17.2 mg PO BEDTIME PRN PRN Reason: Constipation Sodium Chloride (0.9 % Sodium Chloride Flush 3 Ml Syringe) 3 ml IVFLUSH QSHIFT [facility] Last Admin: 05/19/23 07:59 Dose: 3 ml Home Medications Medication Instructions Recorded Confirmed Last Taken Type No Known Home Meds 05/19/23 05/19/23 Unknown History Physical Exam 2 Vital Signs: Vital Signs: Last Vital Signs Temp 97.5 F 05/19/23 08:35 Pulse 104 H 05/19/23 08:35 Resp 18 05/19/23 08:35 BP 179/96 H 05/19/23 08:35 Pulse Ox 97 05/19/23 08:35 O2 Del Method Room Air 05/19/23 08:35 BMI result Body Mass Index 40.0 GENERAL APPEARANCE: in no acute distress, obese. NECK: no carotid bruit, pus jugular venous distention. SKIN: no suspicious lesions, warm and dry. HEART: no murmurs, regular rate and rhythm. Tachycardic. S3 gallop. LUNGS: clear to auscultation bilaterally. ABDOMEN: soft, nontender. EXTREMITIES: Mild edema. PERIPHERAL PULSES: equal. NEUROLOGIC: No gross deficits, AAO X 3 Objective Labs and Meds 05/19/23 04:58 05/19/23 04:58 Lab results: Laboratory Results - last 24 hr 05/18/23 05/18/23 05/19/23 07:33 10:46 04:58 WBC 11.8 H RBC 5.77 Hgb 14.0 Hct 41.7 L MCV 72.3 L MCH 24.3 L MCHC 33.6 RDW 13.3 Plt Count 332 MPV 11.2 Absolute Nucleated RBC 0.000 Nucleated RBC % (auto) 0.0 Sodium 138 Potassium 3.0 L Chloride 103 Carbon Dioxide 25 Anion Gap 13 BUN 10 Creatinine 0.83 Estim Creat Clear Calc 190.9 Estimated GFR > 60 Random Glucose 104 Calcium 8.8 Magnesium 2.1 B-Natriuretic Peptide 288 H Urine Opiates Screen Not Detected Urine Fentanyl Screen Not Detected Ur Barbiturates Screen Not Detected Ur Phencyclidine Scrn Not Detected Ur Amphetamines Screen Not Detected U Benzodiazepines Scrn Not Detected Urine Cocaine Screen Not Detected U Marijuana (THC) Screen Not Detected Influenza Type A (PCR) NEGATIVE Influenza Type B (PCR) NEGATIVE RSV RNA Qual (PCR) NEGATIVE SARS-CoV-2 RNA (RT-PCR) NEGATIVE Imaging Radiologist's impression: Impressions Chest CTA 05/18/23 08:52 IMPRESSION: 1. No evidence of pulmonary emboli. 2. Bilateral lower lobe groundglass infiltrates and tree-in-bud nodularity/infiltrates in the right upper lobe. Differential diagnosis would include pneumonia, possibly viral. CHF is felt to be less likely, although cannot be entirely excluded, as there are no pleural effusions. 3. Progressively increasing cardiac size since 2011. Consider cardiomyopathy. 4. Splenomegaly. VTE: Negative. Assessment and Plan (1) Cardiomyopathy: Qualifiers: Cardiomyopathy type: unspecified Qualified Code(s): I42.9 - Cardiomyopathy, unspecified Status: Acute (2) CHF (congestive heart failure): Status: Acute Plan Pleasant 27 year gentleman presenting with shortness of breath and clinical congestive heart failure. His echocardiography is showing evidence of cardiomyopathy. We will review the echo in more detail. Clinically he is volume overloaded and in heart failure. Continue diuretics and increase the dose to 40 mg IV b.i.d.. Monitor potassium magnesium closely. Adding spironolactone 25 mg daily and increasing the losartan to 25 mg twice a day as his blood pressure is still quite elevated. We will also add 10 mg of Jardiance. He will need further workup as he stabilizes. I will not introduce beta-florence currently. No calcium channel blockers to be given. Thank you for allowing me to participate in the care of your patient. Please feel free to contact me if you have any questions. Procedures Date of Service Date of Service: 05/19/23
--- NOTE | 2023-05-19 09:31 | MHC.CM.PN ---
CM met with Patient at bedside and assisted him with the completion of a HCP(he named his Mother/Mariajose @ [phone] as his Agent). 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 SHONDA has initiated and will follow for dc planning.
[2023-05-19] MEDS: Spironolactone 25 MG TABLET PO (10:41)
[2023-05-19] MEDS: Losartan Potassium 25 MG TABLET PO (10:45)
[2023-05-19] MEDS: cefTRIAXone sodium 1 GM in 0.9 % Sodium Chloride 50 ML IV (13:29)
[2023-05-19] MEDS: Enoxaparin Sodium 40 MG/0.4 ML SYRINGE SUBCUT (13:31)
[2023-05-19 14:58] LABS: Adenovirus PCR Not Detected (Not Detect.); Bordetella parapertussis PCR Not Detected (Not Detect.); Bordetella pertussis PCR Not Detected (Not Detect.); Chlamydia pneumoniae PCR Not Detected (Not Detect.); Coronavirus 229E PCR Not Detected (Not Detect.); Coronavirus HKU1 PCR Not Detected (Not Detect.); Coronavirus NL63 PCR Not Detected (Not Detect.); Coronavirus OC43 PCR Not Detected (Not Detect.); Human metapneumovirus PCR Not Detected (Not Detect.); Influenza A PCR Not Detected (Not Detect.); Influenza B PCR Not Detected (Not Detect.); Mycoplasma pneumoniae PCR Not Detected (Not Detect.); Parainfluenza 1 PCR Not Detected (Not Detect.); Parainfluenza 2 PCR Not Detected (Not Detect.); Parainfluenza 3 PCR Not Detected (Not Detect.); Parainfluenza 4 PCR Not Detected (Not Detect.); RSV PCR Not Detected (Not Detect.); Rhino/Enterovirus PCR Not Detected (Not Detect.)
--- NOTE | 2023-05-19 15:02 | HO.PM.IMPN ---
Subjective Subjective Date of Service: 05/19/23 Interval History: f/u on cardiomyopathy, shortness of breath is better and blood pressure has come down significantly Physical Exam Vital Signs: Vital Signs: Last Vital Signs Temp 97.5 F 05/19/23 11:51 Pulse 98 05/19/23 11:51 Resp 20 05/19/23 11:51 BP 137/93 H 05/19/23 11:51 Pulse Ox 96 05/19/23 11:51 O2 Del Method Room Air 05/19/23 11:51 BMI result Body Mass Index 40.0 General: AO X 3, no acute distress Resp: CTA bilateral CVS: S1,S2,RRR. 1+ leg edema bilaterally GI: +BS, NT, no distention Skin: No rash Neuro: motor grossly intact Psych: appropriate affect Objective Data Active Medications Acetaminophen (Acetaminophen 325 Mg Tablet) 650 mg PO Q6H PRN PRN Reason: Pain, Mild (Pain Scale 1-3) Last Admin: 05/19/23 01:43 Dose: 650 mg Documented By: KIMBERLI Albuterol Sulfate (Albuterol Sulfate (0.083%) 2.5 Mg/3 Ml Vial.Neb) 2.5 mg INHALE Q2H PRN PRN Reason: Shortness of Breath/Wheezing Last Admin: 05/19/23 06:29 Dose: 2.5 mg Documented By: RYAN Enoxaparin Sodium (Enoxaparin Sodium 40 Mg/0.4 Ml Syringe) 40 mg SUBCUT Q24H [facility] Last Admin: 05/19/23 13:31 Dose: 40 mg Documented By: DANE Furosemide (Furosemide 40 Mg/4 Ml Vial) 40 mg IVPUSH DAILY [facility]; Protocol Last Admin: 05/19/23 08:46 Dose: 40 mg Documented By: KAM Guaifenesin (Guaifenesin 200 Mg/10 Ml 10 Ml Liquid) 10 ml PO Q4H PRN PRN Reason: Cough Last Admin: 05/18/23 18:28 Dose: 10 ml Documented By: GRETEL Ceftriaxone Sodium 1 gm/ (Sodium Chloride) 50 mls @ 100 mls/hr IV Q24H [facility] Last Infusion: 05/19/23 14:40 Dose: Infused Documented By: DANE Doxycycline Hyclate 100 mg/ (Sodium Chloride) 250 mls @ 166.67 mls/hr IV Q12H [facility] Last Infusion: 05/19/23 03:27 Dose: Infused Documented By: KIMBERLI Losartan Potassium (Losartan Potassium 25 Mg Tablet) 25 mg PO DAILY [facility]; Protocol Last Admin: 05/19/23 10:45 Dose: 25 mg Documented By: DANE Ondansetron HCl (Ondansetron Hcl 4 Mg/2 Ml Vial) 4 mg IVPUSH Q8H PRN PRN Reason: Nausea and Vomiting Potassium Chloride (Potassium Chloride Er 20 Meq Tab.Er.Prt) 40 meq PO Q6H [facility] Stop: 05/19/23 19:16 Last Admin: 05/19/23 13:30 Dose: 40 meq Documented By: DANE Senna (Sennosides 8.6 Mg Tablet) 17.2 mg PO BEDTIME PRN PRN Reason: Constipation Sodium Chloride (0.9 % Sodium Chloride Flush 3 Ml Syringe) 3 ml IVFLUSH QSHIFT [facility] Last Admin: 05/19/23 07:59 Dose: 3 ml Documented By: MIKEDENL Spironolactone (Spironolactone 25 Mg Tablet) 25 mg PO DAILY [facility]; Protocol Last Admin: 05/19/23 10:41 Dose: 25 mg Documented By: DANE Labs 05/19/23 04:58 05/19/23 04:58 Labs: Laboratory Results - last 24 hr 05/19/23 04:58 MCV 72.3 L MCH 24.3 L MCHC 33.6 RDW 13.3 Plt Count 332 MPV 11.2 Absolute Nucleated RBC 0.000 Nucleated RBC % (auto) 0.0 Anion Gap 13 Estim Creat Clear Calc 190.9 Estimated GFR > 60 Random Glucose 104 Calcium 8.8 Magnesium 2.1 B-Natriuretic Peptide 288 H Microbiology Microbiology Results: Microbiology 05/18/23 07:33 Blood Culture - Preliminary Blood - Venous No growth after 24 hours. 05/18/23 07:27 Blood Culture - Preliminary Blood - Venous No growth after 24 hours. Assessment and Plan (1) CHF (congestive heart failure): Status: Acute (2) Pneumonia: Status: Acute Plan 27 year old male without significant past medical history admitted for pneumonia with CHF exacerbation #?Acute pneumonia with sepsis -recent history of influenza 04/29 treated for bacterial pneumonia. Increase in focal opacitied in bilateral lower lobes and RUL concerning for increased pneumonia, viral vs bacterial. given productive cough/blood tinged sputum and leukocytosis cannot exclude bacterial pneumonia. No PE -leukocytosis 13 now 11, tachycardia resolved, tachypnea. Hyperbilirubinemia likely r/t liver disease, not severe sepsis -IV ctx and doxycycline (initiated 05/17) -albuterol prn -symptomatic management -follow cbc, cultures -the findings maybe due to heart failure, will repeat xray tomorrow following diuresis #New onset CHF -?r/t viral infection/pneumonia -echo ordered -cardiology cosult -iv lasix 40mg daily, losartan and Aldactone added by cardiology -cardiac diet -strict I&O -follow renal function/lytes. trend bnp #HTN--overall improved, DC hydralazine and continue with Aldactone and Losartan #Morbid obesity with bmi 40 -weight loss efforts encouraged dvt prophylaxis- lovenox full code need for inpatient: New onset cardiomyopathy, CHF with work up and med adjustment underway Quality Stroke Does the patient have a stroke diagnosis?: No VTE Prior VTE?: No VTE Risk Level:: Medical - moderate - high VTE Device Contraindication: Treatment Not Indicated VTE Drug Contraindication: N/A - Med Ordered
[2023-05-19 15:18] LABS: SARS-CoV-2 PCR Not Detected (Not Detect.)
[2023-05-19] MEDS: Empagliflozin 10 MG TABLET PO (17:34)
[2023-05-19] MEDS: guaiFENesin 200 MG/10 ML 10 ML LIQUID PO (17:34)
[2023-05-19] MEDS: Sacubitril/Valsartan 49/51 1 TAB TABLET PO (20:55)
[2023-05-20] MEDS: guaiFENesin 200 MG/10 ML 10 ML LIQUID PO (01:15)
[2023-05-20] MEDS: Doxycycline Hyclate 100 MG in 0.9 % Sodium Chloride 250 ML 166.67 MG IV (02:00)
[2023-05-20] MEDS: 0.9 % Sodium Chloride Flush 3 ML SYRINGE IVFLUSH ×4 (02:00→20:10)
[2023-05-20 04:00] VITALS: BP 165/94; PULSE 100; RESP 18; TEMP 36.3; O2SAT 91
[2023-05-20 07:05] VITALS: BP 142/92; PULSE 94; RESP 20; TEMP 36.1; O2SAT 98
[2023-05-20 07:26] LABS: Anion Gap 12 (12-20); Blood Urea Nitrogen 9 mg/dL (9-16); Carbon Dioxide 23 mmol/L (22-29); Chloride 107 mmol/L (96-108); Creatinine Clr Calc Pharmacy 182.1; Estimated Glomerular Filt Rate > 60; Glucose Random 94 mg/dL (60-115); Potassium 3.5 mmol/L (3.3-5.1); Sodium 138 mmol/L (135-145)
[2023-05-20] MEDS: Furosemide 40 MG/4 ML VIAL IVPUSH ×2 (08:15→17:09)
[2023-05-20] MEDS: Empagliflozin 10 MG TABLET PO (08:15)
[2023-05-20] MEDS: Sacubitril/Valsartan 49/51 1 TAB TABLET PO ×2 (08:15→20:09)
[2023-05-20] MEDS: Spironolactone 25 MG TABLET PO (08:15)
[2023-05-20] MEDS: carvediloL 3.125 MG TABLET PO (10:27)
--- NOTE | 2023-05-20 10:42 | P.CDIM_ITS ---
PROVIDER RESPONSE TEXT: To clarify, the appropriate diagnosis supported by the clinical indicators: Hypokalemia: resolved QUERY TEXT: PHYSICIAN'S DOCUMENTATION REQUEST Date of Query: 05/20/2023 09:21 AM EDT Patient Name: LISA ZURITA Admit Date: 05/18/2023 Dear Matias Armenta, A review of the medical record indicates additional documentation may be needed. Please review below and update the documentation accordingly. Clinical Indicators: LAB FINDINGS: potassium 3.5 3.0L 3.5 Fluids Based on the above, is there a diagnosis that correlates with these lab findings: Hypokalemia resolved, suspected, possible Labs indicate a diagnosis of (please specify) Other (explain) Clinically unable to determine (explain) Thank you, Radha Stratton, CCS, CDIS Use of terms such as suspected, likely, concern for, or probable (associated with a specific diagnosi s that is being evaluated, monitored, or treated as if it exists) are acceptable and can be coded in the inpatient se tting, when documented at the time of discharge. Please use your independent medical judgment in providing your response. THIS QUERY IS PART OF THE PERMANENT MEDICAL RECORD
[2023-05-20 10:55] VITALS: BP 170/78; PULSE 90; RESP 20; TEMP 37; O2SAT 97
--- NOTE | 2023-05-20 11:48 | PM.PNCARD ---
Subjective Subjective Date of Service: 05/20/23 Interval history: Seen examined at bedside. Feeling better. No chest discomfort. Blood pressure improved somewhat but rising again as a days passing. Physical Exam Vital Signs: Last Vital Signs Temp 98.6 F 05/20/23 10:55 Pulse 90 05/20/23 10:55 Resp 20 05/20/23 10:55 BP 170/78 H 05/20/23 10:55 Pulse Ox 97 05/20/23 10:55 O2 Del Method Room Air 05/20/23 10:55 BMI result Body Mass Index 40.0 GENERAL APPEARANCE: in no acute distress, obese. NECK: no carotid bruit, no jugular venous distention. SKIN: no suspicious lesions, warm and dry. HEART: no murmurs, regular rate and rhythm. S3 gallop. LUNGS: clear to auscultation bilaterally. ABDOMEN: soft, nontender. EXTREMITIES: no edema. PERIPHERAL PULSES: equal. NEUROLOGIC: No gross deficits, AAO X 3 Objective Labs and Meds 05/19/23 04:58 05/20/23 05:40 Lab results: Laboratory Results - last 24 hr 05/19/23 05/20/23 13:39 05:40 Hold Purple Top SEE NOTE Sodium 138 Potassium 3.5 Chloride 107 Carbon Dioxide 23 Anion Gap 12 BUN 9 Creatinine 0.87 Estim Creat Clear Calc 182.1 Estimated GFR > 60 Random Glucose 94 Calcium 9.0 Respiratory Panel Kumar See Note Adenovirus (Rapid PCR) Not Detected B.pert (TEM-PCR) Not Detected B.parapertussis DNA PCR Not Detected C. pneumoniae DNA (PCR) Not Detected Coronavirus OC43 (PCR) Not Detected Coronavirus HKU1 (PCR) Not Detected Coronavirus 229E (PCR) Not Detected Coronavirus NL63 (PCR) Not Detected Human Metapneumovir PCR Not Detected Influenza A (RT-PCR) Not Detected Influenza B (RT-PCR) Not Detected M. pneumoniae (PCR) Not Detected Parainfluenza 1 (PCR) Not Detected Parainfluenza 2 (PCR) Not Detected Parainfluenza 3 (PCR) Not Detected Parainfluenza 4 (PCR) Not Detected RSV (PCR) Not Detected Entero/Rhino (PCR) Not Detected SARS-CoV-2 RNA (RT-PCR) Not Detected Progress Note: A&P Assessment and plan (1) CHF (congestive heart failure): Status: Acute (2) Cardiomyopathy: Status: Acute (3) HTN (hypertension): Status: Acute Plan [age] year gentleman presenting with shortness of breath and congestive heart failure. Two weeks ago he had a bronchitis episode and was treated with antibiotics but never recovered. Clinically he was volume overloaded. Significantly hypertensive. Echocardiography has shown severe LV dysfunction with severe LV dilation and left ventricular hypertrophy. I suspect that underlying cause for cardiomyopathy is uncontrolled hypertension. Obviously genetic hypertrophic cardiomyopathy can be a possibility too. Blood pressure is still elevated. I have asked Nephrology to be involved to in case we can identify a potential cause for his hypertension at a young age. Once stabilized we will consider a cardiac MRI as outpatient. Thank you for allowing me to participate in the care of your patient. Please feel free to contact me if you have any questions. Time Spent With Patient Time: Total time managing care of this patient today ____ minutes. Progress Note: Quality Stroke Does the patient have a stroke diagnosis?: No Procedures Date of Service Date of Service: 05/20/23
--- NOTE | 2023-05-20 12:08 | P.PNIM_ITS ---
Subjective Subjective Date of Service: 05/20/23 Interval History: f/u on cardiomyopathy, presently without shortness of breath, BP remains labile and mostly high Physical Exam 2 Vital Signs: Vital Signs: Last Vital Signs Temp 98.6 F 05/20/23 10:55 Pulse 90 05/20/23 10:55 Resp 20 05/20/23 10:55 BP 170/78 H 05/20/23 10:55 Pulse Ox 97 05/20/23 10:55 O2 Del Method Room Air 05/20/23 10:55 BMI result Body Mass Index 40.0 GENERAL APPEARANCE: in no acute distress, obese. NECK: no carotid bruit, no jugular venous distention. SKIN: no suspicious lesions, warm and dry. HEART: no murmurs, regular rate and rhythm. S3 gallop. LUNGS: clear to auscultation bilaterally. ABDOMEN: soft, nontender. EXTREMITIES: no edema. PERIPHERAL PULSES: equal. NEUROLOGIC: No gross deficits, AAO X 3 Objective Data Active Medications Acetaminophen (Acetaminophen 325 Mg Tablet) 650 mg PO Q6H PRN PRN Reason: Pain, Mild (Pain Scale 1-3) Last Admin: 05/19/23 01:43 Dose: 650 mg Documented By: KIMBERLI Albuterol Sulfate (Albuterol Sulfate (0.083%) 2.5 Mg/3 Ml Vial.Neb) 2.5 mg INHALE Q2H PRN PRN Reason: Shortness of Breath/Wheezing Last Admin: 05/19/23 06:29 Dose: 2.5 mg Documented By: RYAN Doxycycline Monohydrate (Doxycycline Monohydrate 100 Mg Capsule) 100 mg PO Q12H [facility] Empagliflozin (Empagliflozin 10 Mg Tablet) 10 mg PO DAILY [facility] Last Admin: 05/20/23 08:15 Dose: 10 mg Documented By: TONYA Enoxaparin Sodium (Enoxaparin Sodium 40 Mg/0.4 Ml Syringe) 40 mg SUBCUT Q24H [facility] Last Admin: 05/19/23 13:31 Dose: 40 mg Documented By: BROCaprice Furosemide (Furosemide 40 Mg/4 Ml Vial) 40 mg IVPUSH BID@0900,1800 [facility]; Protocol Last Admin: 05/20/23 08:15 Dose: 40 mg Documented By: TONYA Guaifenesin (Guaifenesin 200 Mg/10 Ml 10 Ml Liquid) 10 ml PO Q4H PRN PRN Reason: Cough Last Admin: 05/20/23 01:15 Dose: 10 ml Documented By: MJ Ceftriaxone Sodium 1 gm/ (Sodium Chloride) 50 mls @ 100 mls/hr IV Q24H [facility] Last Infusion: 05/19/23 14:40 Dose: Infused Documented By: DANE Ondansetron HCl (Ondansetron Hcl 4 Mg/2 Ml Vial) 4 mg IVPUSH Q8H PRN PRN Reason: Nausea and Vomiting Sacubitril/Valsartan (Sacubitril/Valsartan 49/51 1 Tab Tablet) 1 tab PO BID [facility]; Protocol Last Admin: 05/20/23 08:15 Dose: 1 tab Documented By: TONYA Senna (Sennosides 8.6 Mg Tablet) 17.2 mg PO BEDTIME PRN PRN Reason: Constipation Sodium Chloride (0.9 % Sodium Chloride Flush 3 Ml Syringe) 3 ml IVFLUSH QSHIFT [facility] Last Admin: 05/20/23 08:16 Dose: 3 ml Documented By: TONYA Spironolactone (Spironolactone 25 Mg Tablet) 25 mg PO DAILY [facility]; Protocol Last Admin: 05/20/23 08:15 Dose: 25 mg Documented By: TONYA Labs 05/19/23 04:58 05/20/23 05:40 Labs: Laboratory Results - last 24 hr 05/19/23 05/20/23 13:39 05:40 Hold Purple Top SEE NOTE Anion Gap 12 Estim Creat Clear Calc 182.1 Estimated GFR > 60 Random Glucose 94 Calcium 9.0 Respiratory Panel Kumar See Note Adenovirus (Rapid PCR) Not Detected B.pert (TEM-PCR) Not Detected B.parapertussis DNA PCR Not Detected C. pneumoniae DNA (PCR) Not Detected Coronavirus OC43 (PCR) Not Detected Coronavirus HKU1 (PCR) Not Detected Coronavirus 229E (PCR) Not Detected Coronavirus NL63 (PCR) Not Detected Human Metapneumovir PCR Not Detected Influenza A (RT-PCR) Not Detected Influenza B (RT-PCR) Not Detected M. pneumoniae (PCR) Not Detected Parainfluenza 1 (PCR) Not Detected Parainfluenza 2 (PCR) Not Detected Parainfluenza 3 (PCR) Not Detected Parainfluenza 4 (PCR) Not Detected RSV (PCR) Not Detected Entero/Rhino (PCR) Not Detected SARS-CoV-2 RNA (RT-PCR) Not Detected Microbiology Microbiology Results: Microbiology 05/18/23 07:33 Blood Culture - Preliminary Blood - Venous No growth after 48 hours. 05/18/23 07:27 Blood Culture - Preliminary Blood - Venous No growth after 48 hours. Assessment and Plan (1) CHF (congestive heart failure): Status: Acute Plan 27 year old male without significant past medical history admitted for pneumonia with CHF exacerbation #?Acute pneumonia with sepsis -recent history of influenza 04/29 treated for bacterial pneumonia. Increase in focal opacitied in bilateral lower lobes and RUL concerning for increased pneumonia, viral vs bacterial. given productive cough/blood tinged sputum and leukocytosis cannot exclude bacterial pneumonia. No PE -leukocytosis 13 now 11, tachycardia resolved, tachypnea. Hyperbilirubinemia likely r/t liver disease, not severe sepsis -IV ctx and doxycycline (initiated 05/17) -albuterol prn -symptomatic management -follow cbc, cultures -the findings maybe due to heart failure, will repeat xray tomorrow following diuresis -repeat CXR today if not consistent with Pneumonia, stop antibiotics #New onset CHF -?r/t viral infection/pneumonia -echo result pending -cardiology following -iv lasix 40mg , Entresto, Aldactone and Coreg added -cardiac diet -strict I&O -follow renal function/lytes. trend bnp #HTN--overall improved, but still very labile, continue lasis, entresto, coreg, aldacton and Nephrology consult #Morbid obesity with bmi 40 -weight loss efforts encouraged dvt prophylaxis- lovenox full code need for inpatient: New onset cardiomyopathy, CHF with work up and med adjustment underway Quality Stroke Does the patient have a stroke diagnosis?: No VTE Prior VTE?: No VTE Risk Level:: Medical - moderate - high VTE Device Contraindication: Treatment Not Indicated VTE Drug Contraindication: N/A - Med Ordered
--- NOTE | 2023-05-20 12:18 | P.CONNP_ITS ---
History of Present Illness Reason for Consult Consult date: 05/20/23 Reason for consult: HTN and hypokalemia Chief Complaint Chief complaint: CHF History of Present Illness Narrative: 27year old man who was treated for pneumonia and viral illness 2 weeks ago now presenting with worsening shortness of breath and orthopnea. He also had some hemoptysis. He said he was getting very similar symptoms before except hemoptysis and had a orthopnea and dyspnea on exertion we did not improve with antibiotics. In the ER was noticed to be hypertensive and also blood workup showed elevated BNP level. Chest x-ray was concerning for congestion. He was admitted for further management. He since has been getting IV diuretics. He is saying that he is feeling somewhat better. He is denying any chest discomfort. No family history of cardiomyopathy. He drinks alcohol over the weekends but is not a heavy drinker in general. No drug abuse reported Has not seen PCP in many years Baseline BP is unknown At the time of admission, serum K was 3.0 . He was not on diuretics ; No alkalosis No palpitaitions / no sweating / No weight loss Review of Systems Review of Systems Yes all other systems are reviewed and are negative [facility], [facility] Past Medical History Medical History Pneumonia No known health problems Social History Social History Household Members: Family Housing: House Do you presently have visiting nurse or other home services: No Alcohol intake: never Patient Tobacco Use Status: Never used Tobacco Smoked in Last 30 Days: No Patient Interested in Nicotine Replacement: No Patient Given Instructions on How to Stop Smoking: No Second Hand Smoke Exposure: No Use of substances other than those prescribed or required for medical reasons: No Currently Displaying Signs/Symptoms of Drug Intoxication Withdrawal: No Any prior treatment program specific to substance use: No Have you been hit, kicked, punched, or otherwise hurt by someone within the past year? If so, by whom?: No Is there a partner from a previous relationship who is making you feel unsafe now?: No Are you made to feel afraid or neglected: No Advance Directives: No Do you have thoughts of harming others: None Do you have a plan to hurt others: No Plan Recently lost weight without trying: No Eating poorly because of decreased appetite: No Nutrition Risks: No Nutritional Risk service: No Meds Allergies Allergy/AdvReac Type Severity Reaction Status Date / Time No Known Allergies Allergy Verified 03/22/20 00:05 Active Medications: Current Medications Acetaminophen (Acetaminophen 325 Mg Tablet) 650 mg PO Q6H PRN PRN Reason: Pain, Mild (Pain Scale 1-3) Last Admin: 05/19/23 01:43 Dose: 650 mg Albuterol Sulfate (Albuterol Sulfate (0.083%) 2.5 Mg/3 Ml Vial.Neb) 2.5 mg INHALE Q2H PRN PRN Reason: Shortness of Breath/Wheezing Last Admin: 05/19/23 06:29 Dose: 2.5 mg Carvedilol (Carvedilol 6.25 Mg Tablet) 6.25 mg PO BID [facility]; Protocol Doxycycline Monohydrate (Doxycycline Monohydrate 100 Mg Capsule) 100 mg PO Q12H [facility] Empagliflozin (Empagliflozin 10 Mg Tablet) 10 mg PO DAILY [facility] Last Admin: 05/20/23 08:15 Dose: 10 mg Enoxaparin Sodium (Enoxaparin Sodium 40 Mg/0.4 Ml Syringe) 40 mg SUBCUT Q24H [facility] Last Admin: 05/19/23 13:31 Dose: 40 mg Furosemide (Furosemide 40 Mg/4 Ml Vial) 40 mg IVPUSH BID@0900,1800 [facility]; Protocol Last Admin: 05/20/23 08:15 Dose: 40 mg Guaifenesin (Guaifenesin 200 Mg/10 Ml 10 Ml Liquid) 10 ml PO Q4H PRN PRN Reason: Cough Last Admin: 05/20/23 01:15 Dose: 10 ml Ceftriaxone Sodium 1 gm/ (Sodium Chloride) 50 mls @ 100 mls/hr IV Q24H [facility] Last Infusion: 05/19/23 14:40 Dose: Infused Ondansetron HCl (Ondansetron Hcl 4 Mg/2 Ml Vial) 4 mg IVPUSH Q8H PRN PRN Reason: Nausea and Vomiting Sacubitril/Valsartan (Sacubitril/Valsartan 49/51 1 Tab Tablet) 1 tab PO BID [facility]; Protocol Last Admin: 05/20/23 08:15 Dose: 1 tab Senna (Sennosides 8.6 Mg Tablet) 17.2 mg PO BEDTIME PRN PRN Reason: Constipation Sodium Chloride (0.9 % Sodium Chloride Flush 3 Ml Syringe) 3 ml IVFLUSH QSHIFT [facility] Last Admin: 05/20/23 08:16 Dose: 3 ml Spironolactone (Spironolactone 25 Mg Tablet) 25 mg PO DAILY [facility]; Protocol Last Admin: 05/20/23 08:15 Dose: 25 mg Home Medications Medication Instructions Recorded Confirmed Last Taken Type No Known Home Meds 05/19/23 05/19/23 Unknown History Physical Exam Vital Signs: Last Vital Signs Temp 98.6 F 05/20/23 10:55 Pulse 90 05/20/23 10:55 Resp 20 05/20/23 10:55 BP 170/78 H 05/20/23 10:55 Pulse Ox 97 05/20/23 10:55 O2 Del Method Room Air 05/20/23 10:55 BMI result Body Mass Index 40.0 Awake. Comfortable. Neck is supple. Mucosa moist. Lungs bilateral scattered rhonchi. Heart S1-S2 heard no gallop. Abdomen soft. Extremities no edema. No involuntary movements. No myoclonus. Results Lab Results 05/19/23 04:58 05/20/23 05:40 Lab results: Chemistry 05/18/23 05/19/23 05/20/23 07:33 04:58 05:40 Sodium 137 138 138 Potassium 3.5 3.0 L 3.5 Carbon Dioxide 26 25 23 BUN 14 10 9 Creatinine 0.78 0.83 0.87 Calcium 9.0 8.8 9.0 Hematology 05/18/23 05/19/23 07:33 04:58 WBC 13.5 H 11.8 H Hgb 14.4 14.0 Plt Count 341 332 Assessment and Plan (1) CHF (congestive heart failure): Status: Acute (2) HTN (hypertension): Qualifiers: Hypertension type: unspecified Qualified Code(s): I10 - Essential (primary) hypertension Status: Acute Plan Young man with obesity and hypertension of unknown duration comes in with congestive heart failure. Echocardiogram shows severe left ventricular hypertrophy with LV dilatation and hypokinesis. At the time of admission serum potassium was 3.5. He received dose of Lasix and potassium dropped to 3.0. He was not on any diuretics prior to admission. No significant alkalosis. Given the episode of hypokalemia hyperaldosteronism should be ruled out. Although clinically it appears that this hypokalemia may be secondary to the use of loop diuretic. Nevertheless I will check serum aldosterone and plasma renin activity. Check serum cortisol levels as well. As for blood pressure management I would keep her on low-salt diet. Agree with current antihypertensive medications. Goal is to maintain systolic blood pressure around 140 mm Hg and to avoid hypotension. At present renal function stable at baseline. Concur with current cardiac workup and we will follow along with the team. Procedures Date of Service Date of Service: 05/20/23
[2023-05-20] MEDS: cefTRIAXone sodium 1 GM in 0.9 % Sodium Chloride 50 ML IV (13:25)
[2023-05-20] MEDS: Enoxaparin Sodium 40 MG/0.4 ML SYRINGE SUBCUT (13:26)
[2023-05-20] MEDS: Doxycycline Monohydrate 100 MG CAPSULE PO (14:36)
[2023-05-20 15:28] VITALS: BP 171/80; PULSE 95; RESP 16; TEMP 36; O2SAT 98
[2023-05-20 18:56] LABS: Creatinine Urine 68.39 mg/dL; Total Protein Urine Random 8 mg/dL (<12)
[2023-05-20 19:56] VITALS: BP 160/80; PULSE 100; RESP 20; TEMP 36.3; O2SAT 97
[2023-05-20] MEDS: carvediloL 6.25 MG TABLET PO (20:09)
[2023-05-20 23:51] VITALS: BP 132/60; PULSE 76; RESP 18; TEMP 36.7; O2SAT 96
[2023-05-21 04:00] VITALS: BP 140/74; PULSE 85; RESP 18; TEMP 37.2; O2SAT 96
[2023-05-21] MEDS: Doxycycline Monohydrate 100 MG CAPSULE PO (04:07)
[2023-05-21 07:11] VITALS: BP 134/70; PULSE 82; RESP 20; TEMP 36.3; O2SAT 97
[2023-05-21 07:37] LABS: Anion Gap 11 (12-20); Blood Urea Nitrogen 13 mg/dL (9-16); Carbon Dioxide 25 mmol/L (22-29); Chloride 104 mmol/L (96-108); Creatinine Clr Calc Pharmacy 170.3; Estimated Glomerular Filt Rate > 60; Glucose Random 84 mg/dL (60-115); Potassium 3.3 mmol/L (3.3-5.1); Sodium 137 mmol/L (135-145)
[2023-05-21] MEDS: Empagliflozin 10 MG TABLET PO (08:34)
[2023-05-21] MEDS: Sacubitril/Valsartan 49/51 1 TAB TABLET PO (08:34)
[2023-05-21] MEDS: carvediloL 6.25 MG TABLET PO (08:34)
[2023-05-21] MEDS: Spironolactone 25 MG TABLET PO (08:34)
[2023-05-21] MEDS: Furosemide 40 MG TABLET PO (09:04)
--- NOTE | 2023-05-21 09:07 | PM.DS ---
DS: Providers Provider Date of Service: 05/21/23 Date of admission: 05/18/23 12:13 Primary care physician: None Physician Consults: 05/18/23 12:12 Consult to Cardiology Routine Consulting Provider: [facility] Reason for consultation: chf 05/20/23 12:12 Consult to Nephrology Routine Consulting Provider: [facility] Reason for consultation: difficult to control HTN Has provider been notified: Yes DS: Diagnosis Discharge Diagnosis (1) CHF (congestive heart failure): Status: Acute (2) HTN (hypertension): Status: Acute DS: Summary Hospital Course Hospital Course: Admission HPI Chief Complaint: sob, orthopnea, cough 27 year old male without significant past medical history presented to the ED for evaluation of orthopnea, cough with blood tinged brown/yellow sputum productive that recurred last night. The patient was diagnosed with flu and pneumonia on 04/29 and was discharged with azithromycin and ceftin which he completed. He states he had been feeling well until last night when his productive cough recurred with orthopnea. No fevers, chills, abd pain, n/v/d, miller, edema, weight gain, lightheadedness, or chest pain. No prior history of similar symptoms. No known FH of chf or suddent cardiac . On arrrival, pt hypertensive to 198/119, tachycardic to 109, tachypneic without hypoxia. Blood pressure improved to 161/107 on admission following diuresis. There is a leukocytosis 13.5. Renal function and lytes normal. Total bili 2.2, direct bili 0.5, ast 41, alt 34. Trop 19.4, bnp 369. PCT 0.04. Urine tox screen negative. Negative for flu, rsv, covid 19. CTA chest negative for PE. Shows bilateral lower lobe groundglass infiltrates in tree-in-bud nodularity/infiltrates in the right upper lobe differential would include pneumonia, possibly viral. CHF can not be entirely excluded. No pleural effusions. There is also progressively increased cardiac size since 11/01, consider cardiomyopathy. EKG shows sinus tachycardia, rate [address]/T-wave abnormality. No acute ischemic changes. In the ED, has received 40mg IV lasix. Reports occassional alcohol use. Former MJ smoker who quit 1+ years ago. No other illicit substance use. No cigarette smoking. hospital course: He presented with shortness of breath (SOB), orthopnea, and cough. Workup revealed a white blood cell count (WBC) of 13. CT showed bilateral infiltrates, raising suspicion of pneumonia (PNA) versus congestive heart failure (CHF), but no pulmonary embolism (PE) was found. BNP level was 369. He had leg edema, and blood pressure was elevated with no prior diagnosis of hypertension (HTN). His clinical presentation was most consistent with acute heart failure; consequently, he was started on IV Lasix, and cardiology consultation and an echocardiogram were requested. Additionally, he was empirically started on antibiotics for possible pneumonia. His echocardiogram showed a dilated heart, global hypokinesis, and an ejection fraction (EF) of 15 to 20%, consistent with cardiomyopathy, although the etiology is unclear at this time. He responded well to treatment with IV Lasix, Aldactone, Coreg, Entresto, and Jardiance as advised by the work station support specialist Dr. Summers. His symptoms markedly improved, with no current shortness of breath and resolution of leg edema. Initially high blood pressure has now improved and is within normal limits. He will be discharged on the above-mentioned medications and will require follow-up with cardiology for further testing and management. Regarding the possible pneumonia for which he received IV antibiotics, there was a mild increase in WBC, no fever, and the imaging findings are likely attributable to heart failure; therefore, antibiotic treatment will be discontinued. Time Attestation Discharge Coordination Time (in mins): 40 Quality: Safe Use of Opioids Does Pt have an Active Cancer Diagnosis on the Problem List?: No Quality: Stroke Does the patient have a stroke diagnosis?: No Physical Exam Vital Signs: Vital Signs: Last Vital Signs Temp 97.4 F 05/21/23 07:11 Pulse 82 05/21/23 07:11 Resp 20 05/21/23 07:11 BP 134/70 05/21/23 07:11 Pulse Ox 97 05/21/23 07:11 O2 Del Method Room Air 05/21/23 07:11 BMI result Body Mass Index 40.0 General: AO X 3, no acute distress Resp: CTA bilateral CVS: S1,S2,RRR GI: +BS, NT, no distention Skin: No rash Neuro: motor grossly intact Psych: appropriate affect DS: Data Data Completed and Pending Labs on day of discharge: Laboratory Results - last 24 hr 05/20/23 05/21/23 Unknown 06:41 Sodium 137 Potassium 3.3 Chloride 104 Carbon Dioxide 25 Anion Gap 11 L BUN 13 Creatinine 0.93 Estim Creat Clear Calc 170.3 Estimated GFR > 60 Random Glucose 84 Calcium 9.0 U Random Total Protein 8 Urine Creatinine 68.39 Preliminary micro results at discharge 05/18/23 07:33 Blood Culture - Preliminary Blood - Venous No growth after 48 hours. 05/18/23 07:27 Blood Culture - Preliminary Blood - Venous No growth after 48 hours. Discharge Plan Discharge Anticipated Discharge Date/Time: 05/21/23 09:03 Patient Disposition: Home, Self-Care Discharge Diagnosis: Acute Cardiomyopathy, CHF, uncontrolled High blood pressure Referrals: Physician,None [Primary Care Provider] - 1 Week Discharge Medications: No Action carvedilol 6.25 mg tablet 6.25 mg PO BID Qty: 180 3RF Protocol: Hold for SBP/HR < HOLD for SBP < : 90 HOLD for HR < : 60 furosemide 40 mg tablet 40 mg PO DAILY Qty: 90 3RF Protocol: Hold for SBP< HOLD for SBP < : 90 spironolactone 25 mg tablet 25 mg PO DAILY Qty: 90 3RF Protocol: Hold for SBP< HOLD for SBP < : 90 losartan 50 mg tablet 50 mg PO DAILY Qty: 90 3RF Discharge Orders: Discharge Order (Routine); Ordered 05/21/23 Ordered By: Matias Armenta Diet: Advance to usual diet Activity on Discharge: As tolerated Stand Alone Forms: Patient Portal Discharge page, Work/School Release Print Language: Kazakh Care Plan Goals: recovery from a heart failure Health Concerns: cardiomyopathy heart failure uncontrolled hypertension Plan of Treatment: take all medications as directed including Aldactone, Losartan, Lasix, and Coreg follow-up with Dr. Summers in cardiology clinic follow-up with a primary care doctor avoid salty food Assessment: see above Discharge Date/Time: 05/21/23 13:24
--- NOTE | 2023-05-21 10:46 | PM.PNCARD ---
Subjective Subjective Date of Service: 05/21/23 Interval history: Seen examined at bedside. Feeling better. Physical Exam Vital Signs: Last Vital Signs Temp 97.4 F 05/21/23 07:11 Pulse 82 05/21/23 07:11 Resp 20 05/21/23 07:11 BP 134/70 05/21/23 07:11 Pulse Ox 97 05/21/23 07:11 O2 Del Method Room Air 05/21/23 07:11 BMI result Body Mass Index 40.0 GENERAL APPEARANCE: in no acute distress, obese. NECK: no carotid bruit, no jugular venous distention. SKIN: no suspicious lesions, warm and dry. HEART: no murmurs, regular rate and rhythm. S3 gallop. LUNGS: clear to auscultation bilaterally. ABDOMEN: soft, nontender. EXTREMITIES: no edema. PERIPHERAL PULSES: equal. NEUROLOGIC: No gross deficits, AAO X 3 Objective Labs and Meds 05/19/23 04:58 05/21/23 06:41 Lab results: Laboratory Results - last 24 hr 05/20/23 05/21/23 Unknown 06:41 Sodium 137 Potassium 3.3 Chloride 104 Carbon Dioxide 25 Anion Gap 11 L BUN 13 Creatinine 0.93 Estim Creat Clear Calc 170.3 Estimated GFR > 60 Random Glucose 84 Calcium 9.0 U Random Total Protein 8 Urine Creatinine 68.39 Imaging Radiologist's impression: Impressions Chest X-Ray 05/21/23 09:52 IMPRESSION: Improving CHF. Progress Note: A&P Assessment and plan (1) CHF (congestive heart failure): Status: Acute (2) Cardiomyopathy: Status: Acute Plan [age] year gentleman with cardiomyopathy and congestive heart failure. EF is severely reduced. He is severe LV dilation and left ventricular hypertrophy. His blood pressure was significantly elevated and required multiple medications to improve his blood pressure. He was started on guideline directed medical therapy but it appears he can not afford Jardiance or Entresto currently. He will go home with losartan, spironolactone, Lasix and carvedilol. We will see him in the office and adjust medications further. We will repeat echocardiography in few months and we will consider a cardiac MRI on him as outpatient too. Thank you for allowing me to participate in the care of your patient. Please feel free to contact me if you have any questions. Time Spent With Patient Time: Total time managing care of this patient today ____ minutes. Progress Note: Quality Stroke Does the patient have a stroke diagnosis?: No Procedures Date of Service Date of Service: 05/21/23
[2023-05-21 10:47] VITALS: BP 145/70; PULSE 85; RESP 20; TEMP 36.1; O2SAT 97
--- NOTE | 2023-05-21 15:19 | MHC.CM.PN ---
Pt is medically cleared for D/C home self-care, pt has his own transport.
[2023-05-29 18:24] LABS: Aldosterone/Renin Ratio 2.7 Ratio (0.9-28.9); Plasma Renin Activity 4.77 ng/mL/h (0.25-5.82)
[2023-05-29 21:03] LABS: Cortisol, Free 0.99 mcg/dL
[2023-06-02 17:49] LABS: Renin 4.47 ng/mL/h (0.25-5.82)
== END 2023-05-21 13:24 | disposition home or self-care (01) | DRG 194 ==
LOC: HO.ED 10:54 → HO.EDOVER 12:20 → HO.IMC 05-19 07:14
PROVIDERS: Internal Medicine Hypertension Specialist; Admitting Provider Physician Assistant; Emergency Provider Emergency Medicine; Visit Provider Internal Medicine
DX: I11.0 Hypertensive heart disease with heart failure (principal); J18.9 Pneumonia, unspecified organism; I42.9 Cardiomyopathy, unspecified; Z68.41 Body mass index [BMI] 40.0-44.9, adult; R04.2 Hemoptysis; I50.21 Acute systolic (congestive) heart failure; E87.5 Hyperkalemia; E66.01 Morbid (severe) obesity due to excess calories; Z20.822 Contact with and (suspected) exposure to COVID-19
CPT/HCPCS: 0241U; 36415; 71045; 71046; 71275; 76775; 80048; 80076; 80307; 82088; 82530; 82570; 83605; 83735; 83880; 84145; 84156; 84244; 84484; 85025; 85027; 85610; 87040; 87633; 93005; 93306; 94640; 99285; J0360; J0696; J1650; J1940; Q9957

== ENCOUNTER → 2023-05-18 08:34 | Outpatient (BNV) | payer BC, SELFPAY | PROVIDERS: Admitting Provider Physician Assistant; Emergency Provider Emergency Medicine; Visit Provider Internal Medicine Cardiovascular Disease | DX: R94.31 Abnormal electrocardiogram [ECG] [EKG] (principal) | CPT/HCPCS: 93010 ==

== ENCOUNTER 2023-05-18 12:13 | Outpatient (BNV) | payer BC, SELFPAY | END 2023-05-19 07:00 | PROVIDERS: Admitting Provider Physician Assistant; Emergency Provider Emergency Medicine; Visit Provider Internal Medicine Cardiovascular Disease | DX: I50.20 Unspecified systolic (congestive) heart failure (principal) | CPT/HCPCS: 93306 ==

== ENCOUNTER → 2023-05-18 12:13 | Outpatient (BNV) | payer BC, SELFPAY | PROVIDERS: Admitting Provider Physician Assistant; Emergency Provider Emergency Medicine; Visit Provider Internal Medicine Hypertension Specialist | DX: I11.0 Hypertensive heart disease with heart failure (principal); I50.20 Unspecified systolic (congestive) heart failure | CPT/HCPCS: 99223 ==

== ENCOUNTER → 2023-05-18 12:13 | Outpatient (BNV) | payer BC, SELFPAY | PROVIDERS: Admitting Provider Physician Assistant; Emergency Provider Emergency Medicine; Visit Provider Physician Assistant | DX: I11.0 Hypertensive heart disease with heart failure (principal); I50.9 Heart failure, unspecified | CPT/HCPCS: 99223; 99233; 99239 ==

== ENCOUNTER → 2023-05-18 12:13 | Outpatient (BNV) | payer BC, SELFPAY | PROVIDERS: Admitting Provider Physician Assistant; Emergency Provider Emergency Medicine; Visit Provider Internal Medicine Cardiovascular Disease | DX: I50.9 Heart failure, unspecified (principal); I42.9 Cardiomyopathy, unspecified | CPT/HCPCS: 99223; 99232; 99233 ==

== ENCOUNTER 2023-06-18 11:27 | Outpatient (AMB) | payer BC, SELFPAY ==
[2023-06-18 12:04] VITALS: BP 120/84; PULSE 82; BMI 43.6
--- NOTE | 2023-06-18 12:04 | A.OFFVIS_ITS ---
Vital Signs 06/18/23 12:04 Height 6 ft Weight 321 lb 13.998 oz BMI 43.6 BP 120/84 Blood Pressure Location Lt brachial Position Sitting Pulse 82 Pulse Source Pulse Oximeter Intake Visit Reasons: 2 weeks. CHF new onset. 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 He was in the hospital recently when he presented with bronchitis and shortness of breath and was clinically in heart failure. Echocardiography showed LV dysfunction in the severe range. He was started on guideline directed medical therapy with good improvement in symptoms. He is back in the clinic currently and is doing well. No chest discomfort shortness of breath. No orthopnea PND. He is saying that he has been going to gym and walking on treadmill but has not been doing any weight training. Compliant with medications. [facility] Medical History (Updated 05/29/23 @ 00:02 by Alecia Carrasco) Pneumonia No known health problems Social History Household Members: Family Housing: House Do you presently have visiting nurse or other home services: No Alcohol intake: never Patient Tobacco Use Status: Never used Tobacco Second Hand Smoke Exposure: No service: No Review of Systems Const Denies chills, Denies fatigue, Denies fever(s), Denies frequent falls, Denies w eakness, Denies weight gain and Denies weight loss ENT Denies dizziness Card Denies chest pain, Denies leg edema, Denies lightheadedness, Denies palpi tations, Denies dyspnea and Denies dyspnea on exertion Resp Denies cough, Denies dyspnea and Denies dyspnea on exertion GI Denies hematochezia Musc Denies abnormal gait, Denies muscle weakness, Denies numbness, Denies radiating pain into limb and Denies tingling Neuro Denies abnormal gait, Denies dizziness, Denies frequent falls, Denies numbness, Denies tingling and Denies weakness Endo Denies fatigue and Denies palpitations Physical Exam Vital Signs: Last Vital Signs Pulse 82 06/18/23 12:04 BP 120/84 06/18/23 12:04 BMI result Body Mass Index 43.6 GENERAL APPEARANCE: in no acute distress, pleasant. NECK: no carotid bruit, no jugular venous distention. SKIN: no suspicious lesions, warm and dry. HEART: no murmurs, regular rate and rhythm. LUNGS: clear to auscultation bilaterally. ABDOMEN: soft, nontender. EXTREMITIES: no edema. PERIPHERAL PULSES: equal. NEUROLOGIC: No gross deficits, AAO X 3 Assessment & Plan Assessment & Plan (1) CHF (congestive heart failure): Code(s): I50.9 - Heart failure, unspecified Category: Medical (2) Cardiomyopathy: Code(s): I42.9 - Cardiomyopathy, unspecified Category: Medical Qualifiers: Cardiomyopathy type: unspecified Qualified Code(s): I42.9 - Cardiomyopathy, unspecified (3) HTN (hypertension): Code(s): I10 - Essential (primary) hypertension Category: Medical Qualifiers: Hypertension type: unspecified Qualified Code(s): I10 - Essential (primary) hypertension Plan 27-year-old gentleman presenting for follow-up. He was seen in the hospital for new diagnosis of cardiomyopathy and congestive heart failure. Etiology is unclear. He was significantly hypertensive and is doing well with blood pressure control on losartan, spironolactone, Lasix and carvedilol. Clinically euvolemic. We will arrange a cardiac MRI for him for further assessment of cardiomyopathy. He is abstaining from alcohol completely. Thank you for allowing me to participate in the care of your patient. Please feel free to contact me if you have any questions. Orders: Orders MR cardiac morph fnct w con Today I42.9 - Cardiomyopathy, unspecified Medications: Refilled carvedilol 6.25 mg See Protocol PO BID 180 tabs 3RF furosemide 40 mg See Protocol PO DAILY 90 tabs 3RF spironolactone 25 mg See Protocol PO DAILY 90 tabs 3RF losartan 50 mg PO DAILY 90 tabs 3RF Coding Level of Care Code Est Pt Level 4 (94998) Diagnoses CHF (congestive heart failure) I50.9 Cardiomyopathy I42.9 Cardiomyopathy type: unspecified HTN (hypertension) I10 Hypertension type: unspecified
== END 2023-06-18 12:28 | disposition home or self-care (01) ==
PROVIDERS: Visit Provider Internal Medicine Cardiovascular Disease
DX: I50.9 Heart failure, unspecified (principal); I42.9 Cardiomyopathy, unspecified; I10 Essential (primary) hypertension
CPT/HCPCS: 99214

== ENCOUNTER → 2023-06-18 11:27 | Outpatient (BNVA) | payer BC, SELFPAY | PROVIDERS: Visit Provider Internal Medicine Cardiovascular Disease ==

== ENCOUNTER 2023-06-24 13:14 | Outpatient (REF) | payer BC, SELFPAY ==
[2023-06-24 14:56] LABS: Anion Gap 13 (12-20); Blood Urea Nitrogen 17 mg/dL (9-16); Calcium 9.8 mg/dL (8.4-10.2); Carbon Dioxide 25 mmol/L (22-29); Chloride 103 mmol/L (96-108); Estimated Glomerular Filt Rate > 60; Glucose Random 81 mg/dL (60-115); Potassium 3.8 mmol/L (3.3-5.1); Sodium 137 mmol/L (135-145)
== END 2023-06-24 13:15 | disposition home or self-care (01) ==
LOC: HO.LAB 13:14
PROVIDERS: Visit Provider Internal Medicine Hypertension Specialist
DX: I10 Essential (primary) hypertension (principal)
CPT/HCPCS: 36415; 80048

== ENCOUNTER 2023-06-24 13:14 | Outpatient (AMB) | payer BC, SELFPAY ==
[2023-06-24 13:15] VITALS: BP 158/108; PULSE 77; O2SAT 96; BMI 43.5
--- NOTE | 2023-06-24 13:15 | HO.NEPHOV ---
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 He had symptoms of viral illness. Subsequently was found have consulted failure. Blood pressure suboptimal. He was discharged home with after optimizing blood pressure. Recently had Cardiology evaluation and waiting for cardiac MRI. His serum creatinine has been stable at 0.9. He did have history of hemoptysis prior to hospitalization. He has had no gross hematuria no rash no joint pains. Today has no new complaints [facility] Medical History (Updated 05/29/23 @ 00:02 by Alecia Carrasco) Pneumonia No known health problems Social History Household Members: Family Housing: House Do you presently have visiting nurse or other home services: No Alcohol intake: never Patient Tobacco Use Status: Never used Tobacco Second Hand Smoke Exposure: No service: No Physical Exam Vital Signs: Last Vital Signs Pulse 77 06/24/23 13:15 BP 146/100 H 06/24/23 13:43 Pulse Ox 96 06/24/23 13:15 Oxygen Delivery Method Room Air 06/24/23 13:15 BMI result Body Mass Index 43.5 Const General: comfortable Nutritional Appearance: well nourished Orientation/consciousness: patient oriented x3 HEENT Head: No normal to inspection Mouth: moist mucous membranes Neck Neck: Yes supple and Yes no JVD Resp Auscultation: clear to auscultation bilaterally, no rales and rub present Cardio Jugular venous distension: no JVD Palpation: no palpable S3 and no palpable S4 Heart sounds: no rubs GI Palpation (GI): Soft to palpation and nontender Percussion: No Fluid wave present General: Yes no CVA tenderness Back/Spine/Pelvis Back: no CVA tenderness Skin General skin exam: no rashes or lesions noted Neuro General: patient oriented x3 Extrem General: Yes no pedal edema and No clubbing Results Reviewed Nephrology Results: Hgb 14.0 g/dl (14.0-18.0) 05/19/23 WBC 11.8 X10*3/uL (4.8-10.8) H 05/19/23 Plt Count 332 X10*3/uL (160-400) 05/19/23 Sodium 137 mmol/L (135-145) 06/24/23 Potassium 3.8 mmol/L (3.3-5.1) 06/24/23 Chloride 103 mmol/L (96-108) 06/24/23 Carbon Dioxide 25 mmol/L (22-29) 06/24/23 BUN 17 mg/dL (9-16) H 06/24/23 Creatinine 0.92 mg/dL (0.5-1.4) 06/24/23 Calcium 9.8 mg/dL (8.4-10.2) 06/24/23 Urine Creatinine 68.39 mg/dL 05/20/23 Renal US 05/20/23 Assessment & Plan Assessment & Plan (1) HTN (hypertension): Code(s): I10 - Essential (primary) hypertension Category: Medical Qualifiers: Hypertension type: unspecified Qualified Code(s): I10 - Essential (primary) hypertension Plan Young man with obesity and the hypertension. Goal submitted blood cells less than 130/80. He stand low-sodium diet. He needs weight loss as well. Today and had many changes in medication. Today I have ordered a comprehensive workup and will follow along with the team. Orders: Orders Basic Metabolic Panel Today I10 - Essential (primary) hypertension Creatinine Urine 5 Weeks I10 - Essential (primary) hypertension Total Protein Urine Random 5 Weeks I10 - Essential (primary) hypertension Proteinase 3 PR3 Antibodies 5 Weeks I10 - Essential (primary) hypertension Complement C4 5 Weeks I10 - Essential (primary) hypertension Comprehensive Met. Panel 5 Weeks I10 - Essential (primary) hypertension UA and rflx microscopic 5 Weeks I10 - Essential (primary) hypertension Neutrophil Cytoplasma Ab 5 Weeks I10 - Essential (primary) hypertension Myeloperoxidase Antibody 5 Weeks I10 - Essential (primary) hypertension Anti Glomerular Basement Memb 5 Weeks I10 - Essential (primary) hypertension Complement C3 5 Weeks I10 - Essential (primary) hypertension Coding Level of Care Code Est Pt Level 4 (39407) Diagnoses HTN (hypertension) I10 Hypertension type: unspecified
[2023-06-24 13:43] VITALS: BP 146/100
== END 2023-06-24 13:50 | disposition home or self-care (01) ==
PROVIDERS: Visit Provider Internal Medicine Hypertension Specialist
DX: I10 Essential (primary) hypertension (principal)
CPT/HCPCS: 99214

== ENCOUNTER 2023-10-22 10:43 | Outpatient (AMB) | payer BC, SELFPAY ==
[2023-10-22 10:44] VITALS: BP 194/106; PULSE 84; BMI 44.5
--- NOTE | 2023-10-22 10:44 | HO.NEPHOV_ITS ---
Vital Signs 10/22/23 10:44 Height 6 ft Weight 328 lb BMI 44.5 BP 194/106 H Blood Pressure Location Rt brachial Position Sitting Pulse 84 Intake Visit Reasons: CKD/ Conf Intake Note: Follow-up CKD feeling good bp has been high but has been out of med's x1 month Allergies No Known Allergies Allergy (Verified 06/24/23 13:17) HPI Comments Details: 27-year-old man with obesity was recently hospitalized for shortness of breath. He had symptoms of viral illness. Subsequently was found have consulted failure. Blood pressure suboptimal. He was discharged home with after optimizing blood pressure. Recently had Cardiology evaluation and waiting for cardiac MRI. His serum creatinine has been stable at 0.9. He did have history of hemoptysis prior to hospitalization. He has had no gross hematuria no rash no joint pains. Today has no new complaints 10/22/23: Did not take any any meds for 6 weeks [facility] Medical History (Updated 05/29/23 @ 00:02 by Alecia Carrasco) Pneumonia No known health problems Social History Household Members: Family Housing: House Do you presently have visiting nurse or other home services: No Alcohol intake: never Patient Tobacco Use Status: Never used Tobacco Second Hand Smoke Exposure: No service: No Physical Exam Vital Signs: Last Vital Signs Pulse 84 10/22/23 10:44 BP 194/106 H 10/22/23 10:44 BMI result Body Mass Index 44.5 Const General: comfortable Nutritional Appearance: well nourished Orientation/consciousness: patient oriented x3 HEENT Head: No normal to inspection Mouth: moist mucous membranes Neck Neck: Yes supple and Yes no JVD Resp Auscultation: clear to auscultation bilaterally, no rales and rub present Cardio Jugular venous distension: no JVD Palpation: no palpable S3 and no palpable S4 Heart sounds: no rubs GI Palpation (GI): Soft to palpation and nontender Percussion: No Fluid wave present General: Yes no CVA tenderness Back/Spine/Pelvis Back: no CVA tenderness Skin General skin exam: no rashes or lesions noted Neuro General: patient oriented x3 Extrem General: Yes no pedal edema and No clubbing Results Reviewed Nephrology Results: 2 Hgb 14.0 g/dl (14.0-18.0) 05/19/23 WBC 11.8 X10*3/uL (4.8-10.8) H 05/19/23 Plt Count 332 X10*3/uL (160-400) 05/19/23 Sodium 137 mmol/L (135-145) 06/24/23 Potassium 3.8 mmol/L (3.3-5.1) 06/24/23 Chloride 103 mmol/L (96-108) 06/24/23 Carbon Dioxide 25 mmol/L (22-29) 06/24/23 BUN 17 mg/dL (9-16) H 06/24/23 Creatinine 0.92 mg/dL (0.5-1.4) 06/24/23 Calcium 9.8 mg/dL (8.4-10.2) 06/24/23 Urine Creatinine 68.39 mg/dL 05/20/23 Renal US 05/20/23 Assessment & Plan Assessment & Plan (1) HTN (hypertension): Code(s): I10 - Essential (primary) hypertension Category: Medical Qualifiers: Hypertension type: unspecified Qualified Code(s): I10 - Essential (primary) hypertension Plan Young man with obesity and the hypertension. Blood pressure is elevated today because he has not taken any of his medication for last 6 6. I have restarted carvedilol losartan and furosemide. She will wait 2 weeks and restart spironolactone based on the blood pressure. Goal BP less than 130/80. He stand low-sodium diet. He needs weight loss as well. Medications: Refilled furosemide 40 mg See Protocol PO DAILY 90 tabs 3RF losartan 50 mg PO DAILY 90 tabs 3RF carvedilol 6.25 mg See Protocol PO BID 180 tabs 3RF Coding Level of Care Code Est Pt Level 4 (30689) Diagnoses HTN (hypertension) I10 Hypertension type: unspecified
== END 2023-10-22 10:59 | disposition home or self-care (01) ==
PROVIDERS: Visit Provider Internal Medicine Hypertension Specialist
DX: I10 Essential (primary) hypertension (principal)
CPT/HCPCS: 99214

== ENCOUNTER → 2023-10-22 10:43 | Outpatient (BNVA) | payer BC, SELFPAY | PROVIDERS: Visit Provider Internal Medicine Hypertension Specialist ==

== ENCOUNTER 2023-11-11 16:03 | Outpatient (REF) | payer BC, SELFPAY ==
[2023-11-11 17:12] LABS: Appearance Urine Clear; Color Urine Yellow; Glucose Urine UA Negative (Negative); Leukocyte Esterase Urine Negative (Negative); Nitrite Urine Negative (Negative); PH 6.5 (5.0-9.0); Urine Blood Negative (Negative); Urine Ketones Negative (Negative); Urine Protein Negative (Neg-Trace)
[2023-11-11 17:42] LABS: Creatinine Urine 136.17 mg/dL; Total Protein Urine Random 10 mg/dL (<12)
[2023-11-11 17:42] LABS: Alanine Aminotransferase 37 U/L (0-40); Albumin Level 4.3 g/dL (3.5-5.0); Alkaline Phosphatase 49 U/L (39-117); Anion Gap 12 (12-20); Aspartate Amino Transferase 38 U/L (5-37); Bilirubin Total 1.1 mg/dL (0.0-1.0); Blood Urea Nitrogen 13 mg/dL (9-16); Calcium 9.8 mg/dL (8.4-10.2); Carbon Dioxide 28 mmol/L (22-29); Chloride 106 mmol/L (96-108); Estimated Glomerular Filt Rate > 60; Glucose Random 112 mg/dL (60-115); Potassium 3.5 mmol/L (3.3-5.1); Sodium 142 mmol/L (135-145); Total Protein 7.7 g/dL (6.5-8.0)
[2023-11-12 11:54] LABS: Complement C3 146 mg/dL (82-185)
[2023-11-12 21:18] LABS: Anti Glomerular Basement Memb <1.0 AI; Myeloperoxidase Antibody <1.0 AI; Proteinase 3 PR3 Antibodies <1.0 AI
[2023-11-17 09:29] LABS: Neutrophil Cyto Ab Screen NEGATIVE (NEGATIVE)
== END 2023-11-11 16:04 | disposition home or self-care (01) ==
LOC: HO.LAB 16:03
PROVIDERS: Visit Provider Internal Medicine Hypertension Specialist
DX: I10 Essential (primary) hypertension (principal)
CPT/HCPCS: 36415; 80053; 81003; 82570; 83520; 84156; 86021; 86036; 86160

== ENCOUNTER 2023-11-12 15:50 | Outpatient (AMB) | payer BC, SELFPAY ==
[2023-11-12 15:56] VITALS: BP 170/132; PULSE 82; O2SAT 97; BMI 45.0
--- NOTE | 2023-11-12 15:56 | HO.NEPHOV ---
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 He had symptoms of viral illness. Subsequently was found have consulted failure. Blood pressure suboptimal. He was discharged home with after optimizing blood pressure. Recently had Cardiology evaluation and waiting for cardiac MRI. His serum creatinine has been stable at 0.9. He did have history of hemoptysis prior to hospitalization. He has had no gross hematuria no rash no joint pains. Today has no new complaints 10/22/23: Did not take any any meds for 6 weeks 11/12/2023. Overall feeling better. Seems to be compliant with his medications. [facility] Medical History (Updated 10/30/23 @ 00:03 by Alecia Carrasco) Pneumonia No known health problems Social History Household Members: Family Housing: House Do you presently have visiting nurse or other home services: No Alcohol intake: never Patient Tobacco Use Status: Never used Tobacco Second Hand Smoke Exposure: No service: No Physical Exam Vital Signs: Last Vital Signs Pulse 82 11/12/23 15:56 BP 150/100 H 11/12/23 16:11 Pulse Ox 97 11/12/23 15:56 Oxygen Delivery Method Room Air 11/12/23 15:56 BMI result Body Mass Index 45.0 Const General: comfortable; No acute distress Orientation/consciousness: patient oriented x3 Eyes General: appearance normal, both eyes and all related structures Visual Ragsdale: normal visual ragsdale by confrontation Neck Neck: Yes supple and Yes no JVD Resp Effort & Inspection: normal respiratory effort and respiratory effort not decreased Auscultation: rhonchi Cardio Palpation: no palpable S3 and no palpable S4 Heart sounds: no rubs GI Inspection: Yes normal to inspection Palpation (GI): Soft to palpation Percussion: Yes normal to percussion Auscultation: normal bowel sounds General: Yes no CVA tenderness Back/Spine/Pelvis Back: no CVA tenderness Skin General skin exam: no petechiae and no purpura Neuro General: patient oriented x3 and no focal motor deficits Extrem General: No clubbing and No edema Results Reviewed Nephrology Results: Sodium 142 mmol/L (135-145) 11/11/23 Potassium 3.5 mmol/L (3.3-5.1) 11/11/23 Chloride 106 mmol/L (96-108) 11/11/23 Carbon Dioxide 28 mmol/L (22-29) 11/11/23 BUN 13 mg/dL (9-16) 11/11/23 Creatinine 0.88 mg/dL (0.5-1.4) 11/11/23 Calcium 9.8 mg/dL (8.4-10.2) 11/11/23 Urine Protein Negative mg/dL (Neg-Trace) 11/11/23 Urine Creatinine 136.17 mg/dL 11/11/23 Assessment & Plan Assessment & Plan (1) HTN (hypertension): Code(s): I10 - Essential (primary) hypertension Category: Medical Qualifiers: Hypertension type: unspecified Qualified Code(s): I10 - Essential (primary) hypertension Plan Young man with obesity and the hypertension. Blood pressure is elevated today because he has not taken any of his medication for last 6 6. I have restarted carvedilol losartan and furosemide. She will wait 2 weeks and restart spironolactone based on the blood pressure. Goal BP less than 130/80. He stand low-sodium diet. He needs weight loss as well. 11/12/23 Increase Losartan to 100mg Orders: Orders Basic Metabolic Panel 4 Weeks I10 - Essential (primary) hypertension Medications: Changed From losartan 50 mg PO DAILY 90 tabs 3RF To losartan 100 mg PO DAILY 90 tabs 3RF Coding Level of Care Code Est Pt Level 4 (40219) Diagnoses HTN (hypertension) I10 Hypertension type: unspecified
[2023-11-12 16:11] VITALS: BP 150/100
== END 2023-11-12 16:13 | disposition home or self-care (01) ==
PROVIDERS: Visit Provider Internal Medicine Hypertension Specialist
DX: I10 Essential (primary) hypertension (principal); Z91.148 Patient's other noncompliance with medication regimen for other reason
CPT/HCPCS: 99214

== ENCOUNTER → 2023-11-12 15:50 | Outpatient (BNVA) | payer BC, SELFPAY | PROVIDERS: Visit Provider Internal Medicine Hypertension Specialist ==

== ENCOUNTER 2024-01-01 10:56 | Outpatient (REF) | payer BC, SELFPAY ==
[2024-01-01 11:54] LABS: Anion Gap 12 (12-20); Blood Urea Nitrogen 14 mg/dL (9-16); Calcium 9.5 mg/dL (8.4-10.2); Carbon Dioxide 26 mmol/L (22-29); Chloride 106 mmol/L (96-108); Estimated Glomerular Filt Rate > 60; Glucose Random 148 mg/dL (60-115); Potassium 3.3 mmol/L (3.3-5.1); Sodium 141 mmol/L (135-145)
== END 2024-01-01 10:57 | disposition home or self-care (01) ==
LOC: HO.LAB 10:56
PROVIDERS: Visit Provider Internal Medicine Hypertension Specialist
DX: I10 Essential (primary) hypertension (principal)
CPT/HCPCS: 36415; 80048

== ENCOUNTER 2024-01-04 16:01 | Outpatient (AMB) | payer BC, SELFPAY ==
--- NOTE | 2024-01-04 16:01 | HO.NEPHOV ---
Vital Signs 01/04/24 16:02 Height 6 ft Weight 351 lb BMI 47.6 BP 172/136 H Blood Pressure Location Rt brachial Position Sitting Pulse 78 Pulse Source Pulse Oximeter Pulse Oximetry (%) 98 Oxygen Delivery Method Room Air Intake Visit Reasons: Follow up Teletype Telegrapher Required: No Accompanied by: Self / Same As Patient Allergies No Known Allergies Allergy (Verified 01/04/24 16:02) Medication List - Last Reconciled 01/04/24 by Wil Jo MD carvedilol 6.25 mg See Protocol PO BID furosemide 40 mg See Protocol PO DAILY losartan 100 mg PO DAILY HPI Comments Details: 27-year-old man with obesity was recently hospitalized for shortness of breath. He had symptoms of viral illness. Subsequently was found have consulted failure. Blood pressure suboptimal. He was discharged home with after optimizing blood pressure. Recently had Cardiology evaluation and waiting for cardiac MRI. His serum creatinine has been stable at 0.9. He did have history of hemoptysis prior to hospitalization. He has had no gross hematuria no rash no joint pains. Today has no new complaints 10/22/23: Did not take any any meds for 6 weeks 11/12/2023. Overall feeling better. Seems to be compliant with his medications. [facility] Medical History (Updated 10/30/23 @ 00:03 by Alecia Carrasco) Pneumonia No known health problems Social History Household Members: Family Housing: House Do you presently have visiting nurse or other home services: No Alcohol intake: never Patient Tobacco Use Status: Never used Tobacco Second Hand Smoke Exposure: No service: No Physical Exam Vital Signs: Last Vital Signs Pulse 78 01/04/24 16:02 BP 172/136 H 01/04/24 16:02 Pulse Ox 98 01/04/24 16:02 Oxygen Delivery Method Room Air 01/04/24 16:02 BMI result Body Mass Index 47.6 Results Reviewed Nephrology Results: Sodium 141 mmol/L (135-145) 01/01/24 Potassium 3.3 mmol/L (3.3-5.1) 01/01/24 Chloride 106 mmol/L (96-108) 01/01/24 Carbon Dioxide 26 mmol/L (22-29) 01/01/24 BUN 14 mg/dL (9-16) 01/01/24 Creatinine 0.80 mg/dL (0.5-1.4) 01/01/24 Calcium 9.5 mg/dL (8.4-10.2) 01/01/24 Urine Protein Negative mg/dL (Neg-Trace) 11/11/23 Urine Creatinine 136.17 mg/dL 11/11/23 Assessment & Plan Assessment & Plan (1) HTN (hypertension): Code(s): I10 - Essential (primary) hypertension Category: Medical Qualifiers: Hypertension type: unspecified Qualified Code(s): I10 - Essential (primary) hypertension Plan Young man with obesity and the hypertension. Blood pressure is elevated today because he has not taken any of his medication for last 6 6. I have restarted carvedilol losartan and furosemide. She will wait 2 weeks and restart spironolactone based on the blood pressure. Goal BP less than 130/80. He stand low-sodium diet. He needs weight loss as well. 11/12/23 Increase Losartan to 100mg 01/04/24 DC Losartan 100mg Add LOTREL 5/20 daily Titrate dose as tolerated Needs weight loss Los salt diet Medications: New amlodipine-benazepril 5-20 mg (Lotrel) 1 cap PO DAILY 90 caps 0RF Discontinued losartan Discontinued Reason: Doctor's Order 100 mg PO DAILY 90 tabs 1RF Coding Level of Care Code Est Pt Level 4 (28343) Diagnoses HTN (hypertension) I10 Hypertension type: unspecified
[2024-01-04 16:02] VITALS: BP 172/136; PULSE 78; O2SAT 98; BMI 47.6
== END 2024-01-04 16:13 | disposition home or self-care (01) ==
PROVIDERS: Visit Provider Internal Medicine Hypertension Specialist
DX: I10 Essential (primary) hypertension (principal)
CPT/HCPCS: 99214

== ENCOUNTER → 2024-01-04 16:01 | Outpatient (BNVA) | payer BC, SELFPAY | PROVIDERS: Visit Provider Internal Medicine Hypertension Specialist ==

== ENCOUNTER 2024-03-06 14:58 | Outpatient (AMB) | payer BC, SELFPAY ==
[2024-03-06 15:00] VITALS: BP 182/112; PULSE 80; O2SAT 97; BMI 48.0
--- NOTE | 2024-03-06 15:00 | HO.NEPHOV_ITS ---
Vital Signs 03/06/24 15:00 Height 6 ft Weight 354 lb BMI 48.0 BP 182/112 H Blood Pressure Location Rt brachial Position Sitting Pulse 80 Pulse Source Pulse Oximeter Pulse Oximetry (%) 97 Oxygen Delivery Method Room Air Intake Visit Reasons: Follow up/ CONF Teller Supervisor Required: No Accompanied by: Self / Same As Patient Allergies No Known Allergies Allergy (Verified 03/06/24 15:02) Medication List - Last Reconciled 03/06/24 by Wil Jo MD carvedilol 6.25 mg See Protocol PO BID furosemide 40 mg See Protocol PO DAILY HPI Comments Details: 27-year-old man with obesity was recently hospitalized for shortness of breath. He had symptoms of viral illness. Subsequently was found have consulted failure. Blood pressure suboptimal. He was discharged home with after optimizing blood pressure. Recently had Cardiology evaluation and waiting for cardiac MRI. His serum creatinine has been stable at 0.9. He did have history of hemoptysis prior to hospitalization. He has had no gross hematuria no rash no joint pains. Today has no new complaints 10/22/23: Did not take any any meds for 6 weeks 11/12/2023. Overall feeling better. Seems to be compliant with his medications. 03/06/2024 Did not take his medications today [facility] Medical History (Updated 10/30/23 @ 00:03 by Alecia Carrasco) Pneumonia No known health problems Social History Household Members: Family Housing: House Do you presently have visiting nurse or other home services: No Alcohol intake: never Patient Tobacco Use Status: Never used Tobacco Second Hand Smoke Exposure: No service: No Physical Exam Vital Signs: Last Vital Signs Pulse 80 03/06/24 15:00 BP 182/112 H 03/06/24 15:00 Pulse Ox 97 03/06/24 15:00 Oxygen Delivery Method Room Air 03/06/24 15:00 BMI result Body Mass Index 48.0 Comfortable Neck supple no JVD. Lungs entry equal no rales. Heart S1-S2 heard no gallop or rub. Abdomen soft nontender. Neuro alert awake oriented. No asterixis. Extremities no edema. Results Reviewed Nephrology Results: Sodium 141 mmol/L (135-145) 01/01/24 Potassium 3.3 mmol/L (3.3-5.1) 01/01/24 Chloride 106 mmol/L (96-108) 01/01/24 Carbon Dioxide 26 mmol/L (22-29) 01/01/24 BUN 14 mg/dL (9-16) 01/01/24 Creatinine 0.80 mg/dL (0.5-1.4) 01/01/24 Calcium 9.5 mg/dL (8.4-10.2) 01/01/24 Urine Protein Negative mg/dL (Neg-Trace) 11/11/23 Urine Creatinine 136.17 mg/dL 11/11/23 Assessment & Plan Assessment & Plan (1) HTN (hypertension): Code(s): I10 - Essential (primary) hypertension Category: Medical Qualifiers: Hypertension type: unspecified Qualified Code(s): I10 - Essential (primary) hypertension Plan Young man with obesity and the hypertension. Blood pressure is elevated today because he has not taken any of his medication for last 6 6. I have restarted carvedilol losartan and furosemide. She will wait 2 weeks and restart spironolactone based on the blood pressure. Goal BP less than 130/80. He stand low-sodium diet. He needs weight loss as well. 11/12/23 Increase Losartan to 100mg 01/04/24 DC Losartan 100mg Add LOTREL /20 daily Titrate dose as tolerated Needs weight loss Los salt diet 03/23/2024 Discussed compliance. Discontinue Lotrel and start Exforge 5/320. Keep other medications Medications: New amlodipine-valsartan 5-320 mg (Exforge) 1 tab PO DAILY 30 tabs 4RF Coding Level of Care Code Est Pt Level 4 (25399) Diagnoses HTN (hypertension) I10 Hypertension type: unspecified
--- OUTSIDE RECORDS SUMMARY | 2024-03-06 18:58 | XMS_ITS ---
Author Organization [facility] Address [address] [place] [address] Care Team Providers Care Airline Customer Service Agent Name Role Phone AJIT ERIVN Unavailable [phone] MEDICATIONS Medication SIG (Take, Route, Frequency, Duration) Notes Start Date End Date Status Furosemide 40 MG 1 tablet Orally Once a day Active Carvedilol 25 MG 1 tablet with food O rally Twice a day Active Losartan Potassium 25 MG 1 tablet Orally Once a day Active Encounters Encounter Location Date Provider Diagnosis [address] [place] [address] 02/04/2024 AJIT ERVIN PLAN OF TREATMENT No Information Progress Notes * ALISSAALESHA RobertoDOB:1995 ( 28 yo M)Acc No.[id number]:02/04/2024 CPE Patient:??Roberto ZURITA Provider:??AJIT ERVIN PA-C :1995?Age:28 Y?Sex:Ma le Date:02/04/2024 Address:[address] [place], [place] [phone] Subjective: * Chief Complaints: * ? * Medical History:?? * Medications:??Taking Furosem renata 40 MG Tablet 1 tablet Orally Once a day , Taking Carvedilol 25 MG Tablet 1 tablet with food Orally Twice a day , Taking Losartan Potassium 25 MG Tablet 1 tablet Orally Once a day Objective: Assessment: Plan: * Treatment: * Procedure Codes:??29276 NO S HOW OFFICE VISIT * Images: Billing Information: * Visit Code:?? * Procedure Codes:?? 98449 NO SHOW OFFICE VISIT. Care Plan Details* * Sign off status: Pending * Provider:??AJIT ERVIN PA-C Date:?? 02/04/2024
--- OUTSIDE RECORDS SUMMARY | 2024-03-06 18:58 | XMS_ITS ---
Author Organization [facility] Address [address] [place] [address] Care Team Providers Care Surgical Specialist Name Role Phone AJIT ERVIN Unavailable [phone] REASON FOR VISIT Cancel Appointment Request Encounters Encounter Location Date Provider Diagnosis [address] [place] [address] 02/03/2024 AJIT ERVIN PLAN OF TREATMENT No Information Progress Notes * Roberto TRIVEDIDOB:1995 ( 28 yo M)Acc No.[id number]:02/03/2024 Patient:??ALISSACalvin EDUARDOani :1995?Age:28 Y?Sex:Latonia tracy Address:[address] [place] [address] * true * Date:??
--- OUTSIDE RECORDS SUMMARY | 2024-03-06 18:58 | XMS_ITS | Patient Health Record ---
Author Organization [facility] Address [address] [place] [address] Care Team Providers Care Vice President Sales Name Role Phone AJIT ERVIN Unavailable [phone] REASON FOR REFERRAL No Information MEDICATIONS Medication SIG (Take, Route, Frequency, Duration) Notes Start Date End Date Status Furosemide 40 MG 1 tablet Orally Once a day Active Carvedilol 25 MG 1 tablet with food O rally Twice a day Active Losartan Potassium 25 MG 1 tablet Orally Once a day Active PROBLEMS Problem Type ICD Code Onset Dates Problem Status W/U Status Risk SNOMED Code Notes Problem Vitamin D deficiency, unspecified (E55.9) Active confirmed 27081196 Problem Encounter for general adult medical examination without abnormal findings (Z00.00) Active confirmed 204171827 Problem Hypertension, unspecified type (I10) Active confirmed 68883609 Problem Hypertension, essential (I10) Active confirmed Essential hypertension (64484320) Problem Kidney dysfunction (N28.9) Active confirmed 86383813 VITAL SIGNS Heart Rate 81 /min 11/10/2023 Oximetry 98 % 11/10/2023 Blood pressure diastolic 84 mm Hg 11/10/2023 Height 72 in 11/10/2023 Blood pressure systolic 144 mm Hg 11/10/2023 Weight 331 lbs 11/10/2023 BMI 44.89 kg/m2 11/10/2023 Encounters Encounter Location Date Provider Diagnosis [address] [address] 11/24/2023 AJIT ERVIN Hypertension, unspecified type I10 ; Encounter for general adult medical examination without abnormal findings Z00.00 and Kidney dysfunction N28.9 [address] [facility] [address] [place] [address] 12/09/2023 AJIT ERVIN [address] [facility] [address] [place] [address] 01/03/2024 [facility] [address] [place] [address] 02/04/2024 [facility] [address] [address] [place] [address] 03/02/2024 [facility] [address] [address] [place] [address] 10/27/2023 [facility] Hypertension, unspecified type I10 [address] [facility] [address] [place] [address] 11/10/2023 [facility] Hypertension, unspecified type I10 and Kidney dysfunction N28.[address] [facility] [address] [address] [place] [address] 11/10/2023 [facility] [address] [facility] [address] [facility] [address] [place] [address] 11/10/2023 [facility] [address] [facility] [place] [address] 11/24/2023 [facility] [address] [place] [address] 11/24/2023 [facility] [address] [place] [address] 11/24/2023 [facility] [address] [facility] [place] [address] 11/24/2023 [facility] [address] [place] [address] 12/09/2023 [facility] [address] [place] [address] 12/09/2023 [facility] [address] [place] [address] 02/03/2024 [facility] [address] [facility] [address] [place] [address] 02/03/2024 [facility] ASSESSMENTS Encounter Date Diagnosis Assessment Notes Treatment Notes Treatment Clinical Notes Section Notes 10/27/2023 Hypertension, unspecified type (ICD-10 - I10) Roberto is a 28-year-old male with a PMH of HTN that presents new to the practice to establish care. #Labs: Baseline laboratory evaluation including CBC, CMP, lipid panel, hemoglobin A1c, vitamin D, TSH ordered to be evaluated at time of CPE. #HTN: Patient with previous diagnosis of high blood pressure, following with renal/caregiver assisted living Juanita Jo MD with [facility]. Medical records requested for my review. Patient states he has been on carvedilol 25 mg twice daily in addition to losartan 25 mg daily for about a week and a half now. Scheduled to follow-up with [facility] provider 11/11/2023. BP initially elevated in office today at 168/86. Repeat blood pressure 124/88. Discussed the need to record blood pressures at home. Patient states he will use his [employer] card to purchase blood pressure cuff. Patient is educated to take blood pressure twice daily and record them with plan to follow-up in office 2 weeks for review. ED protocol reviewed. Discussed signs/symptoms concerning for hypotension in addition to hypertensive urgency. All questions answered to the patient's satisfaction. Patient demonstrates understanding of diagnosis and treatments discussed. Follow-up in 2 weeks for BP review, sooner should any questions/concerns arise. Case discussed with collaborating physician Awa Singh who has reviewed the assessment/plan. Chart, medications, labs, and vital signs reviewed. Dictation completed with the use of [employer] ([employer] voice recognition software, prone to medical misidentifications and grammatical errors. All errors are unintentional. Although the practitioner does try to identify and correct errors, some may be present. Please do not hesitate to contact the practitioner for clarification. 11/10/2023 Hypertension, unspecified type (ICD-10 - I10) Roberto is a 28-year-old male with a PMH of HTN that presents for BP follow-up #HTN: Patient with history of HTN currently following with Juanita Jo MD with [facility]. Taking furosemide 40 mg daily, [...] #Kidney dysfunction: 1 prior note obtained from [facility] and reviewed. Per this documentation [...] reviewed. Dictation completed with the use of [employer] ([employer] voice recognition software, prone to medical misidentifications and grammatical errors. All errors are unintentional. Although the practitioner does try to identify and correct errors, some may be present. Please do not hesitate to contact the practitioner for clarification. 11/10/2023 Kidney dysfunction (ICD-10 - N28.9) Roberto is a 28-year-old male with a PMH of HTN that presents for BP follow-up #HTN: Patient with history of HTN currently following with Juanita Jo MD with [facility]. Taking furosemide 40 mg daily, [...] #Kidney dysfunction: 1 prior note obtained from [facility] and reviewed. Per this documentation [...] reviewed. Dictation completed with the use of [employer] ([employer] voice recognition software, prone to medical misidentifications [...] currently following with Juanita Jo MD with [facility]. Taking furosemide 40 mg daily, [...] #Kidney dysfunction: 1 prior note obtained from [facility] and reviewed. Per this documentation [...] reviewed. Dictation completed with the use of [employer] ([employer] voice recognition software, prone to medical misidentifications and grammatical errors. All errors are unintentional. Although the practitioner does try to identify and correct errors, some may be present. Please do not hesitate to contact the practitioner for clarification. 11/24/2023 Hypertension, unspecified type (ICD-10 - I10) Roberto is a 28-year-old male with a PMH of HTN that presents for BP follow-up #HTN: Patient with history of HTN currently following with Juanita Jo MD with [facility]. Taking furosemide 40 mg daily, [...] #Kidney dysfunction: 1 prior note obtained from [facility] and reviewed. Per this documentation [...] reviewed. Dictation completed with the use of [employer] ([employer] voice recognition software, prone to medical misidentifications [...] currently following with Juanita Jo MD with [facility]. Taking furosemide 40 mg daily, [...] #Kidney dysfunction: 1 prior note obtained from [facility] and reviewed. Per this documentation [...] reviewed. Dictation completed with the use of [employer] ([employer] voice recognition software, prone to medical misidentifications and grammatical errors. All errors are unintentional. Although the practitioner does try to identify and correct errors, some may be present. Please do not hesitate to contact the practitioner for clarification. PLAN OF TREATMENT Pending Test Test Name Order Date CBC (COMPLETE BLOOD COUNT) WITH DIFF 05/2023 COMPREHENSIVE METABOLIC PANEL 10/27/2023 LIPID PANEL 10/27/2023 HEMOGLOBIN A1c 10/27/2023 TSH 10/27/2023 VITAMIN D, 1,25 DIHYDROXY LC/MS/MS 10/26 Insurance Providers Payer Name Payer Address Payer Phone Subscriber Number Group Number Insured Name Patient Relationship to Insured Coverage Start Date Coverage End Date Aniika Jamul and [facility] [address] [place] [address] [id number] Roberto Trivedi Self - patient is the insured MEDICAL (GENERAL) HISTORY Medical History History ICD Code Hypertension, essential I10
--- OUTSIDE RECORDS SUMMARY | 2024-03-06 18:58 | XMS_ITS ---
Author Organization [facility] Address [address] [place] [address] Care Team Providers Care Kitchen Steward Name Role Phone AJIT ERVIN [facility] [phone] Encounters Encounter Location Date Provider Diagnosis [address] [place] [phone] 03/02/2024 AJIT ERVIN PLAN OF TREATMENT No Information Progress Notes * Roberto ZURITADOB:1995 ( 28 yo M)Acc No.[id number]:03/02/2024 CPE Patient:??Roberto ZURITA Provider:??AJIT ERVIN PA-C :1995?Age:28 Y?Sex:Ma tracy Date:03/02/2024 Address:[address] [place], [place] [phone] Subjective: * Chief Complaints: * ? * Medical History:?? Objective: Assessment: Plan: * Treatment: * Images: Billing Information: * Visit Code:?? * Procedure Codes:?? Care Plan Details* * Sign off status: Pending * Provider:??AJIT ERVIN PA-C Date:?? 03/02/2024
== END 2024-03-06 15:12 | disposition home or self-care (01) ==
PROVIDERS: Visit Provider Internal Medicine Hypertension Specialist
DX: I10 Essential (primary) hypertension (principal)
CPT/HCPCS: 99214

== ENCOUNTER → 2024-03-06 14:58 | Outpatient (BNVA) | payer BC, SELFPAY | PROVIDERS: Visit Provider Internal Medicine Hypertension Specialist ==

== ENCOUNTER 2024-04-25 13:34 | Outpatient (AMB) | payer BC, SELFPAY ==
[2024-04-25 13:33] VITALS: BP 172/118; PULSE 93; O2SAT 97; BMI 48.3
--- NOTE | 2024-04-25 13:33 | HO.NEPHOV ---
Vital Signs 04/25/24 13:33 Height 6 ft Weight 356 lb BMI 48.3 BP 172/118 H Blood Pressure Location Lt brachial Position Sitting Pulse 93 Pulse Source Pulse Oximeter Pulse Oximetry (%) 97 Oxygen Delivery Method Room Air Intake Visit Reasons: Resistant Hypertension/ LVM Compensation/Benefits Specialist Required: No Accompanied by: Self / Same As Patient Allergies No Known Allergies Allergy (Verified 04/25/24 13:35) Medication List - Last Reconciled 04/25/24 by Wil Jo MD amlodipine-valsartan 5-320 mg (Exforge) 1 tab PO DAILY carvedilol 6.25 mg See Protocol PO BID furosemide 40 mg See Protocol PO DAILY HPI Comments Details: 27-year-old man with obesity was recently hospitalized for shortness of breath. He had symptoms of viral illness. Subsequently was found have consulted failure. Blood pressure suboptimal. He was discharged home with after optimizing blood pressure. Recently had Cardiology evaluation and waiting for cardiac MRI. His serum creatinine has been stable at 0.9. He did have history of hemoptysis prior to hospitalization. He has had no gross hematuria no rash no joint pains. Today has no new complaints 10/22/23: Did not take any any meds for 6 weeks 11/12/2023. Overall feeling better. Seems to be compliant with his medications. 03/06/2024 Did not take his medications today 04/25/2024. Claims to be taking all his medications No specific complaints today [facility] Medical History (Updated 10/30/23 @ 00:03 by Alecia Carrasco) Pneumonia No known health problems Social History Household Members: Family Housing: House Do you presently have visiting nurse or other home services: No Alcohol intake: never Patient Tobacco Use Status: Never used Tobacco Second Hand Smoke Exposure: No service: No Physical Exam Vital Signs: Last Vital Signs Pulse 93 04/25/24 13:33 BP 172/118 H 04/25/24 13:33 Pulse Ox 97 04/25/24 13:33 Oxygen Delivery Method Room Air 04/25/24 13:33 BMI result Body Mass Index 48.3 Comfortable Neck supple no JVD. Lungs entry equal no rales. Heart S1-S2 heard no gallop or rub. Abdomen soft nontender. Neuro alert awake oriented. No asterixis. Extremities no edema. Results Reviewed Nephrology Results: Sodium 141 mmol/L (135-145) 01/01/24 Potassium 3.3 mmol/L (3.3-5.1) 01/01/24 Chloride 106 mmol/L (96-108) 01/01/24 Carbon Dioxide 26 mmol/L (22-29) 01/01/24 BUN 14 mg/dL (9-16) 01/01/24 Creatinine 0.80 mg/dL (0.5-1.4) 01/01/24 Calcium 9.5 mg/dL (8.4-10.2) 01/01/24 Urine Protein Negative mg/dL (Neg-Trace) 11/11/23 Urine Creatinine 136.17 mg/dL 11/11/23 Assessment & Plan Assessment & Plan (1) HTN (hypertension): Code(s): I10 - Essential (primary) hypertension Category: Medical Qualifiers: Hypertension type: unspecified Qualified Code(s): I10 - Essential (primary) hypertension Plan Young man with obesity and the hypertension. Blood pressure is elevated today because he has not taken any of his medication for last 6 6. I have restarted carvedilol losartan and furosemide. She will wait 2 weeks and restart spironolactone based on the blood pressure. Goal BP less than 130/80. He stand low-sodium diet. He needs weight loss as well. 11/12/23 Increase Losartan to 100mg 01/04/24 DC Losartan 100mg Add LOTREL 5/20 daily Titrate dose as tolerated Needs weight loss Los salt diet 03/23/2024 Discussed compliance. Discontinue Lotrel and start Exforge 5/320. Keep other medications 04/25/2024. Blood pressure is suboptimal. Discontinue Exforge 5/320 and start Exforge 10/320. Discontinue Lasix 40 mg Start Aldactazide 25/25 one a day. Stay on low-sodium diet. He needs weight loss as well Return to clinic in 2 weeks Medications: New amlodipine-valsartan 10-320 mg (Exforge) 1 tab PO DAILY 90 tabs 0RF spironolacton-hydrochlorothiaz 25-25 mg 1 tab PO DAILY 90 tabs 0RF Discontinued amlodipine-valsartan 5-320 mg (Exforge) Discontinued Reason: Doctor's Order 1 tab PO DAILY 30 tabs 4RF furosemide Discontinued Reason: Doctor's Order 40 mg See Protocol PO DAILY 90 tabs 3RF Coding Level of Care Code Est Pt Level 4 (75109) Diagnoses HTN (hypertension) I10 Hypertension type: unspecified
--- OUTSIDE RECORDS SUMMARY | 2024-04-25 17:02 | XMS_ITS | Clinical Summary ---
Author Organization [facility] ity Address [address] [place] [phone] Care Team Providers Care Pest Control Service Representative Name Role Phone Unavailable Primary Care Provider Unavailabl e Social History Tobacco Use Types Packs/Day Years Used Date Smoking Tobacco: Never Assessed Sex and Gender Information Value Date Recorded Sex Assigned at Not on file Legal Sex Male 5:21 AM EST Gender Identity Not on file Sexual Orientation Not on file Plan of Treatment Upcoming Encounters Date Type Department Care Team ([facility] st Contact Info) Description 08/02/2024 9:30 AM EDT Office Visit Adult Medicine [address] [address] Yesi Holliday MD [address] [place] [phone] Health Maintenance Due Date Last Done Comments DTaP,Tdap,and Td Vaccines (1 - Tdap) 07/23/2015 Hepatitis B Vaccines (1 of 3 - 19+ 3-dose series) 07/23/2015 COVID-19 Vaccine (2023-2 5 season) 2023 Influenza Vaccine (#1) 2023 Depression Screening 02/08/2024 HIV Screening 02/08/2024 Hepatitis C Screening 02/08/2024 Social Influencers of Health Screening 02/08/2024 HIB Vaccines Aged Out No longer eligi ble based on patient's age to complete this topic HPV Vaccines Aged Out No longer eligi ble based on patient's age to complete this topic Hepatitis A Vaccines Aged Out No long er eligible based on patient's age to complete this topic IPV Vaccines Aged Out No longer eligi ble based on patient's age to complete this topic MMR Vaccines Aged Out No longer eligi ble based on patient's age to complete this topic Meningococcal ACWY Vaccine Aged Out N o longer eligible based on patient's age to complete this topic Meningococcal B Vacine Aged Out No lo nger eligible based on patient's age to complete this topic Pneumococcal Vaccine: Pediat rics (0 to 5 Years) and At-Risk Patients (6 to 64 Years) Aged Out No longer eligible b ased on patient's age to complete this topic RSV Immunization Patients Un haris 20 months Aged Out No longer eligible b ased on patient's age to complete this topic Varicella Vaccines Aged Out No longer eligible based on patient's age to complete this topic
--- OUTSIDE RECORDS SUMMARY | 2024-04-25 17:02 | XMS_ITS | Encounter Summary ---
Author Organization [employer] Address [address] [place] [address] Care Team Providers Care Global Implementation Manager Name Role Phone Fausto Kirkpatrick MD Primary Care Prov ider Reason for Visit * Reason Onset Date Comments Appointment 03/27/2022 Patient called i n inquiring about oral surgery for wisdom tooth extraction. Patient was informed that office will reach out to him for scheduling based on wait list DR Encounter Details Date Type Department Care Team ([facility] Contact Info) Description 03/27/2022 Telephone [facility] [address] [place] [address] Topher Daly, DMD [address] [place] [address] Appointment (Patient called in inquiring about oral surgery for wisdom tooth extraction. Patient was informed that office will reach out to him for scheduling based on wait list ) Social History Tobacco Use Types Packs/Day Years Used Date Smoking Tobacco: Never Smokeless Tobacco: Never Sex and Gender Information Value Date Recorded Sex Assigned at Male 12/22/2021 10:35 AM EDT Legal Sex Male 10:35 AM EDT Gender Identity Male 03/18/2022 8:54 AM EST Sexual Orientation Choose not to disclose 2022 8:54 AM EST COVID-19 Exposure Response Date Recorded In the last 10 days, have yo u been in contact with someone who was confirmed or suspected to have Coronavirus/COVID-19? No / Unsure 03/25/2022 12:45 PM EST documented as of this encounter Miscellaneous Notes * Telephone Encounter - Addis Horton - 03/27/2022 9:05 AM EST Patient called in inquiring about oral surgery for wisdom tooth extraction. Patient was informed that office will reach out to him for scheduling based on wait list DR documented in this encounter Plan of Treatment Not on file documented as of this encounter Visit Diagnoses Not on filedocumented in this encounter Care Teams Global Implementation Manager Relationship Specialty Start Date End Date Fausto Kirkpatrick MD [address] [place] [phone] PCP - General Internal Medicine 12/02/18 05/03/23 documented as of this encounter
--- OUTSIDE RECORDS SUMMARY | 2024-04-25 17:03 | XMS_ITS ---
Author Organization [facility] Address [address] [place] [address] Care Team Providers Care Keymodule Assembly Machine Tender Name Role Phone AJIT ERVIN Unavailable [phone] MEDICATIONS Medication SIG (Take, Route, Frequency, Duration) Notes Start Date End Date Status Furosemide 40 MG 1 tablet Orally Once a day Active Carvedilol 25 MG 1 tablet with food O rally Twice a day Active Losartan Potassium 25 MG 1 tablet Orally Once a day Active Encounters Encounter Location Date Provider Diagnosis [address] [place] [phone] 02/04/2024 AJIT ERVIN PLAN OF TREATMENT No Information Progress Notes * PARMINDER RobertoDOB:1995 ( 28 yo M)Acc No.[id number]:02/04/2024 CPE Patient:??Roberto ZURITA Provider:??AJIT ERVIN PA-C :1995?Age:28 Y?Sex:Ma le Date:02/04/2024 Address:[address] [place], [place] [phone] Subjective: * Chief Complaints: * ? * Medical History:?? * Medications:??Taking Furosem renata 40 MG Tablet 1 tablet Orally Once a day , Taking Carvedilol 25 MG Tablet 1 tablet with food Orally Twice a day , Taking Losartan Potassium 25 MG Tablet 1 tablet Orally Once a day Objective: Assessment: Plan: * Treatment: * Procedure Codes:??92645 NO S HOW OFFICE VISIT * Images: Billing Information: * Visit Code:?? * Procedure Codes:?? 31869 NO SHOW OFFICE VISIT. Care Plan Details* * Sign off status: Pending * Provider:??AJIT ERVIN PA-C Date:?? 02/04/2024
--- OUTSIDE RECORDS SUMMARY | 2024-04-25 17:03 | XMS_ITS ---
Author Organization [facility] Address [address] [place] [address] Care Team Providers Care Virtual Office Assistant Name Role Phone AJIT ERVIN [facility] [phone] Encounters Encounter Location Date Provider Diagnosis [address] [place] [phone] 03/02/2024 AJIT ERVIN PLAN OF TREATMENT No Information Progress Notes * Roberto ZURITADOB:1995 ( 28 yo M)Acc No.[id number]:03/02/2024 CPE Patient:??Roberto ZURITA Provider:??AJIT ERVIN PA-C :1995?Age:28 Y?Sex:Ma tracy Date:03/02/2024 Address:[address] [place], [place] [phone] Subjective: * Chief Complaints: * ? * Medical History:?? Objective: Assessment: Plan: * Treatment: * Images: Billing Information: * Visit Code:?? * Procedure Codes:?? Care Plan Details* * Sign off status: Pending * Provider:??AJIT ERVIN PA-C Date:?? 03/02/2024
--- OUTSIDE RECORDS SUMMARY | 2024-04-25 17:03 | XMS_ITS | Patient Health Record ---
Author Organization [facility] Address [address] [place] [address] Care Team Providers Care Practicing Md Anesthesiologist Name Role Phone AJIT ERVIN Unavailable [phone] REASON FOR REFERRAL No Information MEDICATIONS Medication [...] Vitamin D deficiency, unspecified (E55.9) Active confirmed 11026906 Problem Encounter for general adult medical examination without abnormal findings (Z00.00) Active confirmed 947112044 Problem Hypertension, unspecified type (I10) Active confirmed 24316443 Problem Hypertension, essential (I10) Active confirmed Essential hypertension (69535482) Problem Kidney dysfunction (N28.9) Active confirmed 68922812 VITAL SIGNS Heart Rate 81 /min 11/10/2023 Oximetry 98 % 11/10/2023 Blood pressure diastolic 84 mm Hg 11/10/2023 Height 72 in 11/10/2023 Blood pressure systolic 144 mm Hg 11/10/2023 Weight 331 lbs 11/10/2023 BMI 44.89 kg/m2 11/10/2023 Encounters Encounter Location Date Provider Diagnosis [address] [address] 11/24/2023 AJIT ERVIN Hypertension, unspecified type I10 ; Encounter for general adult medical examination without abnormal findings Z00.00 and Kidney dysfunction N28.[address] [facility] [address] [place] [address] 12/09/2023 AJIT ERVIN [address] [place] [address] 01/03/2024 [facility] [address] [place] [address] 02/04/2024 [facility] [address] [place] [address] 03/02/2024 [facility] [address] [place] [address] 10/27/2023 [facility] Hypertension, unspecified type I10 [address] [place] [address] 11/10/2023 [facility] Hypertension, unspecified type I10 and Kidney dysfunction N28.[address] [place] [address] 11/10/[address] [facility] [address] [place] [address] 11/10/2023 [facility] [address] [place] [address] 11/24/2023 [facility] [address] [place] [address] 11/24/2023 [facility] [address] [place] [address] 11/24/2023 [facility] [address] [place] [address] 11/24/2023 [facility] [address] [place] [address] 12/09/2023 [facility] [address] [place] [address] 12/09/2023 [facility] [address] [place] [address] 02/03/2024 [facility] [address] [place] [address] 02/03/2024 [facility] ASSESSMENTS Encounter Date Diagnosis Assessment Notes Treatment [...] diagnosis of high blood pressure, following with renal/ehs specialist Juanita Jo MD with [facility]. Medical records requested for my review. Patient states he has been on carvedilol 25 mg twice daily in addition to losartan 25 mg daily for about a week and a half now. Scheduled to follow-up with [facility] provider 11/11/2023. BP initially elevated in office [...] reviewed. Dictation completed with the use of [employer] voice recognition software, prone to medical misidentifications [...] currently following with Juanita Jo MD with [facility]. Taking furosemide 40 mg daily, [...] #Kidney dysfunction: 1 prior note obtained from [facility] and reviewed. Per this documentation [...] reviewed. Dictation completed with the use of [employer] voice recognition software, prone to medical misidentifications [...] currently following with Juanita Jo MD with [facility]. Taking furosemide 40 mg daily, [...] #Kidney dysfunction: 1 prior note obtained from [facility] and reviewed. Per this documentation [...] reviewed. Dictation completed with the use of [employer] voice recognition software, prone to medical misidentifications [...] with history of HTN currently following with Juainta Jo MD with [facility]. Taking furosemide 40 mg daily, [...] #Kidney dysfunction: 1 prior note obtained from [facility] and reviewed. Per this documentation [...] reviewed. Dictation completed with the use of [employer] voice recognition software, prone to medical misidentifications [...] currently following with Juanita Jo MD with [facility]. Taking furosemide 40 mg daily, [...] #Kidney dysfunction: 1 prior note obtained from [facility] and reviewed. Per this documentation [...] reviewed. Dictation completed with the use of [employer] voice recognition software, prone to medical misidentifications [...] currently following with Juanita Jo MD with [facility]. Taking furosemide 40 mg daily, [...] #Kidney dysfunction: 1 prior note obtained from [facility] and reviewed. Per this documentation [...] reviewed. Dictation completed with the use of [employer] voice recognition software, prone to medical misidentifications [...] Insured Coverage Start Date Coverage End Date [employer] [facility] [address] [place] [address] [phone] [id number] Roberto Trivedi Self - patient is the insured MEDICAL (GENERAL) HISTORY Medical History History ICD Code Hypertension, essential I10
--- OUTSIDE RECORDS SUMMARY | 2024-04-25 17:03 | XMS_ITS | Clinical Summary ---
Author Organization [employer] Address [address] [place] [address] [address] [place] [address] Care Team Providers Care Keno Terminal Operator Name Role Phone Unavailable Primary Care Provider Unavailabl e Allergies No known active allergies Medications cetirizine (ZyrTEC) 10 MG tablet Take 1 tablet by mouth at bed time. 0 Active fluticasone (Flonase Allergy Relief) 50 MCG/ACT nasal spray Administer 1-2 sprays into affected nostril(s) at bed time. 0 Active chlorhexidine (Peridex) 0.12 % solutionIndicat ions:Periodonta l disease Use 15 ml swish for 30 seconds 2 times per day and expectorate 118 mL 3 Active Social History Tobacco Use Types Packs/Day Years Used Date Smoking Tobacco: Never Passive Smoke Exposure: Never Smokeless Tobacco: Never Tobacco Cessation:Counseling Given: Not Answered Alcohol Use Standard Drinks/Week Comments Yes 12 (1 standard drink = 0.6 oz pu re alcohol) Sex and Gender Information Value Date Recorded Sex Assigned at Male 12/22/2021 10:35 AM EDT Legal Sex Male 10:35 AM EDT Gender Identity Male 03/18/2022 8:54 AM EST Sexual Orientation Choose not to disclose 2022 8:54 AM EST Last Filed Vital Signs Vital Sign Reading Time Taken Comments Blood Pressure 120/78 04/14/2022 1:09 PM EST Pulse 82 04/14/2022 1:09 PM EST Temperature - - Respiratory Rate - - Oxygen Saturation - - Inhaled Oxygen Concentration - - Weight 144 kg (317 lb 15.9 oz) 05/02/2019 12:03 AM EDT Height 182.9 cm (6') 05/02/2019 12:03 AM EDT Body Mass Index 43.13 05/02/2019 12:03 AM EDT Plan of Treatment Health Maintenance Due Date Last Done Comments Dental Oral Exam 1996 Dental Prophylaxis 1996 Depression Screening 1996 HIV Screening 1996 SDOH Screening 1996 Alcohol/Substance Use Screening 2008 Family Planning (PISQ) 07/23/2011 Hepatitis C Screening 2014 DTaP/Tdap/Td Vaccines (7 - Td or Tdap) 05/15/2018 05/15/2008, 09/29/2000, 02/19/1998, Additional history exists Tobacco Screening 04/14/2023 04/14/2022 Dental X-Ray: Bitewings 04/15/2023 04/14/2022 COVID-19 Vaccine ( season) 2023 06/25/2020, 06/03/2020 Influenza Vaccine (#1) 2023 11/22/2015, 2008 Dental X-Ray: Full Mouth 04/15/2025 04/14/2022, 02/23 Zoster Vaccines (1 of 2) 2046 RSV Patients and Patients Aged 60 years or older (1 - 1-dose 75+ series) 07/23/2071 Hepatitis B Vaccines Completed 04/19/1997, 1996, 1996 HIB Vaccines Completed 10/10/1997, 02/1996, 1996, Additional history exists IPV Vaccines Completed 09/29/2000, 01/23, 1996, Additional history exists Meningococcal Vaccine Completed 10/11/2012, 009 HPV Vaccines Completed 11/22/2015, 10/23, 10/11/2012 Hepatitis A Vaccines Aged Out No long er eligible based on patient's age to complete this topic Pneumococcal Vaccine: Pediatrics (0 to 5 Years) and At-Risk Patients (6 to 49) Years) Aged Out No longer eligible based on patient's age to complete this topic RSV under 20 months Aged Out No longe r eligible based on patient's age to complete this topic Rotavirus Vaccines Aged Out No longer eligible based on patient's age to complete this topic Procedures Procedure Name Priority Date/Time Associated Diagnosis Comments INTRAORAL - COMPLETE SERIES OF RADIOGRAPHIC IMAGES Routine 04/14/2022 1:00 PM EST from Last 3 Months or Most Recently Relevant to Health Maintenance Insurance D[place] [employer] STAND ADULT H[employer] PARTIAL DENTAL-[facility] MED[employer] STAND ADULT
--- OUTSIDE RECORDS SUMMARY | 2024-04-25 17:03 | XMS_ITS ---
Author Organization [facility] Address [address] [place] [address] Care Team Providers Care Intensive Care Anaesthetist Name Role Phone AJIT ERVIN Unavailable [phone] REASON FOR VISIT Cancel Appointment Request Encounters Encounter Location Date Provider Diagnosis [address] [place] [phone] 02/03/2024 AJIT ERVIN PLAN OF TREATMENT No Information Progress Notes * Roberto TRIVEDIDOB:1995 ( 28 yo M)Acc No.[id number]:02/03/2024 Patient:??ALISSACalvin EDUARDOani :1995?Age:28 Y?Sex:Latonia tracy Address:[address] [place] [address] * true * Date:??
== END 2024-04-25 13:50 | disposition home or self-care (01) ==
PROVIDERS: Visit Provider Internal Medicine Hypertension Specialist
DX: I10 Essential (primary) hypertension (principal)
CPT/HCPCS: 99214

== ENCOUNTER 2024-05-09 14:34 | Outpatient (AMB) | payer BC, SELFPAY ==
[2024-05-09 14:36] VITALS: BP 130/92; PULSE 81; O2SAT 98; BMI 48.5
--- NOTE | 2024-05-09 14:36 | HO.NEPHOV_ITS ---
Vital Signs 05/09/24 14:36 05/09/24 14:47 Height 6 ft Weight 358 lb BMI 48.5 BP 130/92 H 124/90 H Blood Pressure Location Rt brachial Rt brachial Position Sitting Sitting Pulse 81 Pulse Source Pulse Oximeter Pulse Oximetry (%) 98 Oxygen Delivery Method Room Air Intake Visit Reasons: 2 weeks fu/ LVM Certified Flex Endoscope Reprocessor Required: No Accompanied by: Self / Same As Patient Allergies No Known Allergies Allergy (Verified 05/09/24 14:39) Medication List - Last Reconciled 05/09/24 by Wil Jo MD amlodipine-valsartan 10-320 mg (Exforge) 1 tab PO DAILY carvedilol 6.25 mg See Protocol PO BID spironolacton-hydrochlorothiaz 25-25 mg 1 tab PO DAILY HPI Comments Details: 27-year-old man with obesity was recently hospitalized for shortness of breath. He had symptoms of viral illness. Subsequently was found have consulted failure. Blood pressure suboptimal. He was discharged home with after optimizing blood pressure. Recently had Cardiology evaluation and waiting for cardiac MRI. His serum creatinine has been stable at 0.9. He did have history of hemoptysis prior to hospitalization. He has had no gross hematuria no rash no joint pains. Today has no new complaints 10/22/23: Did not take any any meds for 6 weeks 11/12/2023. Overall feeling better. Seems to be compliant with his medications. 03/06/2024 Did not take his medications today 04/25/2024. Claims to be taking all his medications No specific complaints today 05/09/24 Doing well. No issues [facility] Medical History (Updated 10/30/23 @ 00:03 by Alecia Carrasco) Pneumonia No known health problems Social History Household Members: Family Housing: House Do you presently have visiting nurse or other home services: No Alcohol intake: never Patient Tobacco Use Status: Never used Tobacco Second Hand Smoke Exposure: No service: No Physical Exam Vital Signs: Last Vital Signs Pulse 81 05/09/24 14:36 BP 130/92 H 05/09/24 14:36 Pulse Ox 98 05/09/24 14:36 Oxygen Delivery Method Room Air 05/09/24 14:36 BMI result Body Mass Index 48.5 Comfortable Neck supple no JVD. Lungs entry equal no rales. Heart S1-S2 heard no gallop or rub. Abdomen soft nontender. Neuro alert awake oriented. No asterixis. Extremities no edema. Results Reviewed Nephrology Results: Sodium 141 mmol/L (135-145) 01/01/24 Potassium 3.3 mmol/L (3.3-5.1) 01/01/24 Chloride 106 mmol/L (96-108) 01/01/24 Carbon Dioxide 26 mmol/L (22-29) 01/01/24 BUN 14 mg/dL (9-16) 01/01/24 Creatinine 0.80 mg/dL (0.5-1.4) 01/01/24 Calcium 9.5 mg/dL (8.4-10.2) 01/01/24 Urine Protein Negative mg/dL (Neg-Trace) 11/11/23 Urine Creatinine 136.17 mg/dL 11/11/23 Assessment & Plan Assessment & Plan (1) HTN (hypertension): Code(s): I10 - Essential (primary) hypertension Category: Medical Qualifiers: Hypertension type: unspecified Qualified Code(s): I10 - Essential (primary) hypertension Plan Young man with obesity and the hypertension. Blood pressure is elevated today because he has not taken any of his medication for last 6 6. I have restarted carvedilol losartan and furosemide. She will wait 2 weeks and restart spironolactone based on the blood pressure. Goal BP less than 130/80. He stand low-sodium diet. He needs weight loss as well. 11/12/23 Increase Losartan to 100mg 01/04/24 DC Losartan 100mg Add LOTREL 5/20 daily Titrate dose as tolerated Needs weight loss Los salt diet 03/23/2024 Discussed compliance. Discontinue Lotrel and start Exforge 5/320. Keep other medications 04/25/2024. Blood pressure is suboptimal. Discontinue Exforge 5/320 and start Exforge 10/320. Discontinue Lasix 40 mg Start Aldactazide one a day. Stay on low-sodium diet. He needs weight loss as well Return to clinic in 2 weeks 05/09/24 Bp better controlled. No changes today Check labs before next visit Orders: Orders Basic Metabolic Panel 2 Months I10 - Essential (primary) hypertension Coding Level of Care Code Est Pt Level 3 (25268) Diagnoses HTN (hypertension) I10 Hypertension type: unspecified
[2024-05-09 14:47] VITALS: BP 124/90
--- OUTSIDE RECORDS SUMMARY | 2024-05-09 17:20 | XMS_ITS ---
Author Organization [facility] Address [address] [place] [address] Care Team Providers Care Manifest/Order Organizer Print Orders Name Role Phone AJIT ERVIN Unavailable [phone] Encounters Encounter Location Date Provider Diagnosis [address] [place] [phone] 03/02/2024 AJIT ERVIN PLAN OF TREATMENT No Information Progress Notes * Roberto ZURITADOB:1995 ( 28 yo M)Acc No.[id number]:03/02/2024 CPE Patient:??Roberto ZURITA Provider:??AJIT ERVIN PA-C :1995?Age:28 Y?Sex:Ma tracy Date:03/02/2024 Address:[address] [place], [place] [phone] Subjective: * Chief Complaints: * ? * Medical History:?? Objective: Assessment: Plan: * Treatment: * Images: Billing Information: * Visit Code:?? * Procedure Codes:?? Care Plan Details* * Sign off status: Pending * Provider:??AJIT ERVIN PA-C Date:?? 03/02/2024
--- OUTSIDE RECORDS SUMMARY | 2024-05-09 17:20 | XMS_ITS | Clinical Summary ---
Author Organization [facility]y Address [address] [place] [address] Care Team Providers Care Rn New Graduate Name Role Phone Unavailable Primary Care Provider Unavailabl e Social History Tobacco Use Types Packs/Day Years Used Date Smoking Tobacco: Never Assessed Sex and Gender Information Value Date Recorded Sex Assigned at Not on file Legal Sex Male 5:21 AM EST Gender Identity Not on file Sexual Orientation Not on file Plan of Treatment Upcoming Encounters Date Type Department Care Team ([facility] st Contact Info) Description 08/02/2024 9:30 AM EDT Office Visit Adult Medicine [address] [address] Yesi Holliday MD [address] [place] [address] Health Maintenance Due Date Last Done Comments [...]
--- OUTSIDE RECORDS SUMMARY | 2024-05-09 17:21 | XMS_ITS | Patient Health Record ---
Author Organization [facility] Address [address] [place] [address] Care Team Providers Care Operational Risk Analyst Name Role Phone AJIT ERVIN Unavailable [phone] REASON FOR REFERRAL No Information MEDICATIONS Medication [...] Vitamin D deficiency, unspecified (E55.9) Active confirmed 94599023 Problem Encounter for general adult medical examination without abnormal findings (Z00.00) Active confirmed 670050659 Problem Hypertension, unspecified type (I10) Active confirmed 96622330 Problem Hypertension, essential (I10) Active confirmed Essential hypertension (02233735) Problem Kidney dysfunction (N28.9) Active confirmed 20316659 VITAL SIGNS Heart Rate 81 /min 11/10/2023 Oximetry 98 % 11/10/2023 Blood pressure diastolic 84 mm Hg 11/10/2023 Height 72 in 11/10/2023 Blood pressure systolic 144 mm Hg 11/10/2023 Weight 331 lbs 11/10/2023 BMI 44.89 kg/m2 11/10/2023 Encounters Encounter Location Date Provider Diagnosis [address] [address] 11/24/2023 AJIT ERVIN Hypertension, unspecified type I10 ; Encounter for general adult medical examination without abnormal findings Z00.00 and Kidney dysfunction N28.9 [address] [facility] [address] [place] [address] 12/09/2023 AJIT ERVIN [address] [address] [place] [address] 01/03/2024 [facility] [address] [address] [place] [address] 02/04/2024 [facility] [address] [place] [address] [place] [address] 03/02/2024 [facility] [address] [place] [address] [place] [address] 10/27/2023 [facility] Hypertension, unspecified type I10 [address] [place] [address] [place] [address] 11/10/2023 [facility] Hypertension, unspecified type I10 and Kidney dysfunction N28.[address] [facility] [address] [place] [address] [place] [address] 11/10/2023 [facility] [facility] [address] [place] [address] [place] [address] 11/10/2023 [facility] [address] [place] [address] [place] [address] 11/24/2023 [facility] [address] [place] [address] [place] [address] 11/24/2023 [facility] [address] [place] [address] [place] [address] 11/24/2023 [facility] [address] [place] [address] [place] [address] 11/24/2023 [facility] [address] [place] [address] [place] [address] 12/09/2023 [facility] [address] [facility] [address] [place] [address] 12/09/2023 [facility] [address] [facility] [address] [place] [address] 02/03/2024 [facility] [address] [facility] [address] [place] [address] 02/03/2024 [facility] ASSESSMENTS Encounter Date Diagnosis Assessment Notes [...] diagnosis of high blood pressure, following with renal/head of product Juanita Jo MD with [facility]. Medical records requested for my review. Patient states he has been on carvedilol 25 mg twice daily in addition to losartan 25 mg daily for about a week and a half now. Scheduled to follow-up with [facility] provider 11/11/2023. BP initially elevated in office [...] reviewed. Dictation completed with the use of ralali voice recognition software, prone to medical misidentifications [...] currently following with Juanita Jo MD with [facility]. Taking furosemide 40 mg daily, [...] #Kidney dysfunction: 1 prior note obtained from [facility] and reviewed. Per this documentation [...] reviewed. Dictation completed with the use of ralali voice recognition software, prone to medical misidentifications [...] currently following with Juanita Jo MD with [facility]. Taking furosemide 40 mg daily, [...] #Kidney dysfunction: 1 prior note obtained from [facility] and reviewed. Per this documentation [...] reviewed. Dictation completed with the use of ralali voice recognition software, prone to medical misidentifications [...] currently following with Juanita Jo MD with [facility]. Taking furosemide 40 mg daily, [...] #Kidney dysfunction: 1 prior note obtained from [facility] and reviewed. Per this documentation [...] reviewed. Dictation completed with the use of ralali voice recognition software, prone to medical misidentifications [...] currently following with Juanita Jo MD with [facility]. Taking furosemide 40 mg daily, [...] #Kidney dysfunction: 1 prior note obtained from [facility] and reviewed. Per this documentation [...] reviewed. Dictation completed with the use of ralali voice recognition software, prone to medical misidentifications [...] currently following with Juanita Jo MD with [facility]. Taking furosemide 40 mg daily, [...] #Kidney dysfunction: 1 prior note obtained from [facility] and reviewed. Per this documentation [...] reviewed. Dictation completed with the use of ralali voice recognition software, prone to medical misidentifications [...] Insured Coverage Start Date Coverage End Date [employer] [place] and [facility] [address] [place] [address] [id number] 3 Roberto Trivedi Self - patient is the insured MEDICAL (GENERAL) HISTORY Medical History History ICD Code Hypertension, essential I10
--- OUTSIDE RECORDS SUMMARY | 2024-05-09 17:21 | XMS_ITS ---
Author Organization [employer] [facility] Address [address] [place] [address] Care Team Providers Care Financial Services Officer Name Role Phone AJIT ERVIN Unavailable [phone] MEDICATIONS Medication SIG (Take, Route, Frequency, Duration) Notes Start Date End Date Status Furosemide 40 MG 1 tablet Orally Once a day Active Carvedilol 25 MG 1 tablet with food O rally Twice a day Active Losartan Potassium 25 MG 1 tablet Orally Once a day Active Encounters Encounter Location Date Provider Diagnosis [address] [place] [address] 02/04/2024 AJIT ERVIN PLAN OF TREATMENT No Information Progress Notes * Calvin TRIVEDIsugarDOB:1995 ( 28 yo M)Acc No.[id number]:02/04/2024 CPE Patient:??ALISSARoberto EDUARDO Provider:??AJIT ERVIN PA-C :1995?Age:28 Y?Sex:Ma le Date:02/04/2024 Address:[address] [place], [place] [address] Subjective: * Chief Complaints: * ? * Medical History:?? * Medications:??Taking Furosem renata 40 MG Tablet 1 tablet Orally Once a day , Taking Carvedilol 25 MG Tablet 1 tablet with food Orally Twice a day , Taking Losartan Potassium 25 MG Tablet 1 tablet Orally Once a day Objective: Assessment: Plan: * Treatment: * Procedure Codes:??66078 NO S HOW OFFICE VISIT * Images: Billing Information: * Visit Code:?? * Procedure Codes:?? 32670 NO SHOW OFFICE VISIT. Care Plan Details* * Sign off status: Pending * Provider:??AJIT ERVIN PA-C Date:?? 02/04/2024
--- OUTSIDE RECORDS SUMMARY | 2024-05-09 17:21 | XMS_ITS ---
Author Organization [facility] Address [address] [place] [address] Care Team Providers Care Real Estate Site Analyst Name Role Phone AJIT ERVIN Unavailable [phone] REASON FOR VISIT Cancel Appointment Request Encounters Encounter Location Date Provider Diagnosis [address] [place] [address] 02/03/2024 AJIT ERVIN PLAN OF TREATMENT No Information Progress Notes * Roberto TRIVEDIDOB:1995 ( 28 yo M)Acc No.[id number]:02/03/2024 Patient:??ALISSACalvin EDUARDOani :1995?Age:28 Y?Sex:Latonia tracy Address:[address] [place] [address] * true * Date:??
== END 2024-05-09 14:50 | disposition home or self-care (01) ==
LOC: HO.HKA 14:35
PROVIDERS: Visit Provider Internal Medicine Hypertension Specialist
DX: I10 Essential (primary) hypertension (principal)
CPT/HCPCS: 99213

== ENCOUNTER 2024-07-03 09:49 | Outpatient (REF) | payer BC, SELFPAY ==
--- OUTSIDE RECORDS SUMMARY | 2024-07-03 10:10 | XMS_ITS | Encounter Summary ---
Author Organization [employer] Address [address] [place] [address] Care Team Providers Care System Archive Analyst Name Role Phone Fausto Kirkpatrick MD Primary Care Prov ider Reason for Visit * Reason Onset Date Comments Appointment 03/27/2022 Patient called i n inquiring about oral surgery for wisdom tooth extraction. Patient was informed that office will reach out to him for scheduling based on wait list DR Encounter Details Date Type Department Care Team ([facility] Contact Info) Description 03/27/2022 Telephone [facility] [address] [place] [address] Topher Daly, DMD [address] [place] [address] Appointment (Patient called in inquiring about oral [...] on filedocumented in this encounter Care Teams System Archive Analyst Relationship Specialty Start Date End Date Fausto Kirkpatrick MD [address] [place] [address] PCP - General Internal Medicine 12/02/18 05/03/23 documented as of this encounter
--- OUTSIDE RECORDS SUMMARY | 2024-07-03 10:10 | XMS_ITS | Patient Health Record ---
Author Organization [facility] Address [address] [place] [address] Care Team Providers Care Employee Communications Specialist Name Role Phone AJIT ERVIN Unavailable [phone] REASON FOR REFERRAL No Information MEDICATIONS Medication [...] Vitamin D deficiency, unspecified (E55.9) Active confirmed 29752566 Problem Encounter for general adult medical examination without abnormal findings (Z00.00) Active confirmed 289908889 Problem Hypertension, unspecified type (I10) Active confirmed 13996818 Problem Hypertension, essential (I10) Active confirmed Problem Kidney dysfunction (N28.9) Active confirmed 14833203 VITAL SIGNS Heart Rate 81 /min 11/10/2023 Blood pressure diastolic 84 mm Hg 11/10/2023 Oximetry 98 % 11/10/2023 Height 72 in 11/10/2023 Blood pressure systolic 144 mm Hg 11/10/2023 Weight 331 lbs 11/10/2023 BMI 44.89 kg/m2 11/10/2023 Encounters Encounter Location Date Provider Diagnosis [address] [address] 11/24/2023 AJIT ERVIN Hypertension, unspecified type I10 ; Encounter for general adult medical examination without abnormal findings Z00.00 and Kidney dysfunction N28.9 [address] [address] 12/09/2023 AJIT ERVIN [address] [place] [address] 01/03/2024 [facility] [address] [address] [place] [address] 02/04/2024 [facility] [address] [facility] [address] [place] [address] 03/02/2024 [facility] [address] [facility] [address] [place] [address] 10/27/2023 [facility] Hypertension, unspecified type I10 [address] [facility] [address] [place] [address] 11/10/2023 [facility] Hypertension, unspecified type I10 and Kidney dysfunction N28.[address] [facility] [address] [facility] [address] [place] [address] 11/10/[address] [facility] [address] [facility] [facility] [address] [place] [address] 11/10/2023 [facility] [address] [facility] [address] [place] [address] 11/24/2023 [facility] [address] [facility] [address] [place] [address] 11/24/2023 [facility] [address] [facility] [address] [place] [address] 11/24/2023 [facility] [address] [facility] [address] [place] [address] 11/24/2023 [facility] [address] [facility] [address] [place] [address] 12/09/2023 [facility] [address] [facility] [address] [place] [address] 12/09/2023 [facility] [address] [facility] [address] [place] [address] 02/03/2024 [facility] [address] [place] [address] 02/03/2024 [facility] ASSESSMENTS Encounter Date Diagnosis Assessment Notes [...] diagnosis of high blood pressure, following with renal/labor specialist Juanita Jo MD with [facility]. Medical records requested for my review. Patient states he has been on carvedilol 25 mg twice daily in addition to losartan 25 mg daily for about a week and a half now. Scheduled to follow-up with [facility] provider 11/11/2023. BP initially elevated in [...] reviewed. Dictation completed with the use of [employer] voice recognition software, prone to medical misidentifications [...] currently following with Juanita Jo MD with [facility] [place] [facility]. Taking furosemide 40 mg daily, [...] #Kidney dysfunction: 1 prior note obtained from [facility] and reviewed. Per this documentation [...] reviewed. Dictation completed with the use of [employer] voice recognition software, prone to medical misidentifications [...] currently following with Juanita Jo MD with [facility]. Taking furosemide 40 mg daily, [...] #Kidney dysfunction: 1 prior note obtained from [facility] and reviewed. Per this documentation [...] reviewed. Dictation completed with the use of PixelFlow voice recognition software, prone to medical misidentifications [...] currently following with Juanita Jo MD with [facility]. Taking furosemide 40 mg daily, [...] #Kidney dysfunction: 1 prior note obtained from [facility] and reviewed. Per this documentation [...] reviewed. Dictation completed with the use of [employer]Flow voice recognition software, prone to medical misidentifications [...] currently following with Juanita Jo MD with [facility]. Taking furosemide 40 mg daily, [...] #Kidney dysfunction: 1 prior note obtained from [facility] [place] [facility] and reviewed. Per this documentation the patient [...] reviewed. Dictation completed with the use of [employer]Flow voice recognition software, prone to medical misidentifications [...] currently following with Juanita Jo MD with [facility]. Taking furosemide 40 mg daily, [...] #Kidney dysfunction: 1 prior note obtained from [facility] and reviewed. Per this documentation [...] reviewed. Dictation completed with the use of [employer]Flow voice recognition software, prone to medical misidentifications [...] Insured Coverage Start Date Coverage End Date [employer] and [facility] [address] [place] [address] [id number] Roberto Trivedi Self - patient is the insured MEDICAL (GENERAL) HISTORY Medical History History ICD Code Hypertension, essential I10
--- OUTSIDE RECORDS SUMMARY | 2024-07-03 10:10 | XMS_ITS ---
Author Organization [employer] [facility] Address [address] [place] [address] Care Team Providers Care Front End Alignment Specialist Name Role Phone AJIT ERVIN Unavailable [phone] Encounters Encounter Location Date Provider Diagnosis [address] [place] [address] 03/02/2024 AJIT ERVIN PLAN OF TREATMENT No Information Progress Notes * Roberto ZURITADOB:1995 ( 28 yo M)Acc No.[id number]:03/02/2024 CPE Patient:??Roberto ZURITA Provider:??AJIT ERVIN PA-C :1995?Age:28 Y?Sex:Ma tracy Date:03/02/2024 Address:[address] [place], [place] [id number] Subjective: * Chief Complaints: * ? * Medical History:?? Objective: Assessment: Plan: * Treatment: * Images: Billing Information: * Visit Code:?? * Procedure Codes:?? Care Plan Details* * Sign off status: Pending * Provider:??AJIT ERVIN PA-C Date:?? 03/02/2024
--- OUTSIDE RECORDS SUMMARY | 2024-07-03 10:10 | XMS_ITS ---
Author Organization [employer] [facility] Address [address] [place] [address] Care Team Providers Care Export Documents Clerk Name Role Phone AJIT ERVIN Unavailable [phone] MEDICATIONS Medication SIG (Take, Route, Frequency, Duration) Notes Start Date End Date Status Furosemide 40 MG 1 tablet Orally Once a day Active Carvedilol 25 MG 1 tablet with food O rally Twice a day Active Losartan Potassium 25 MG 1 tablet Orally Once a day Active Encounters Encounter Location Date Provider Diagnosis [address] [place] [address] 02/04/2024 AJIT ERVIN PLAN OF TREATMENT No Information Progress Notes * ALISSAALESHA RobertoDOB:1995 ( 28 yo M)Acc No.[id number]:02/04/2024 CPE Patient:??Roberto ZURITA Provider:??AJIT ERVIN PA-C :1995?Age:28 Y?Sex:Ma le Date:02/04/2024 Address:[address] [place], [place] [id number] Subjective: * Chief Complaints: * ? * Medical History:?? * Medications:??Taking Furosem renata 40 MG Tablet 1 tablet Orally Once a day , Taking Carvedilol 25 MG Tablet 1 tablet with food Orally Twice a day , Taking Losartan Potassium 25 MG Tablet 1 tablet Orally Once a day Objective: Assessment: Plan: * Treatment: * Procedure Codes:??44249 NO S HOW OFFICE VISIT * Images: Billing Information: * Visit Code:?? * Procedure Codes:?? 72373 NO SHOW OFFICE VISIT. Care Plan Details* * Sign off status: Pending * Provider:??AJIT ERVIN PA-C Date:?? 02/04/2024
--- OUTSIDE RECORDS SUMMARY | 2024-07-03 10:10 | XMS_ITS ---
Author Organization [facility] Address [address] [place] [address] Care Team Providers Care Drencher Name Role Phone AJIT ERVIN Unavailable [phone] REASON FOR VISIT Cancel Appointment Request Encounters Encounter Location Date Provider Diagnosis [address] [place] [address] 02/03/2024 AJIT ERVIN PLAN OF TREATMENT No Information Progress Notes * Roberto TRIVEDIDOB:1995 ( 28 yo M)Acc No.[id number]:02/03/2024 Patient:??ALISSACalvin EDUARDOani :1995?Age:28 Y?Sex:Latonia tracy Address:[address] [place] [address] * true * Date:??
--- OUTSIDE RECORDS SUMMARY | 2024-07-03 10:10 | XMS_ITS | Clinical Summary ---
Author Organization [employer] Address [address] [place] [address] 7t [place] [address] Care Team Providers Care Back End Web Developer Name Role Phone Unavailable Primary Care Provider [...] Insurance [place] STAND ADULT HSN PARTIAL [facility] MEDICAID STAND ADULT
--- OUTSIDE RECORDS SUMMARY | 2024-07-03 10:10 | XMS_ITS | Clinical Summary ---
Author Organization [facility] Address [address] [place] [address] Care Team Providers Care Process Validation Engineer Name Role Phone Unavailable Primary Care Provider Unavailabl e Social History Tobacco Use Types Packs/Day Years Used Date Smoking Tobacco: Never Assessed Sex and Gender Information Value Date Recorded Sex Assigned at Not on file Legal Sex Male 5:21 AM EST Gender Identity Not on file Sexual Orientation Not on file Plan of Treatment Upcoming Encounters Date Type Department Care Team ([facility] st Contact Info) Description 08/02/2024 9:30 AM EDT Office Visit Adult Medicine [address] [address] Yesi Holliday MD [address] [place] [address] Health Maintenance Due Date Last Done Comments DTaP,Tdap,and Td Vaccines (1 - Tdap) 07/23/2015 Hepatitis B Vaccines (1 of 3 - 19+ 3-dose series) 07/23/2015 COVID-19 Vaccine (2023-2 5 season) 2023 Depression Screening 02/08/2024 HIV Screening 02/08/2024 Hepatitis C Screening 02/08/2024 Social Influencers of Health Screening 02/08/2024 Influenza Vaccine (Season Ended) 2024 HIB Vaccines Aged Out No longer eligi [...] age to complete this topic Meningococcal B Vaccine Aged Out No l onger eligible based on patient's age to complete [...]
[2024-07-03 11:02] LABS: Anion Gap 13 (12-20); Blood Urea Nitrogen 17 mg/dL (9-16); Calcium 9.4 mg/dL (8.4-10.2); Carbon Dioxide 25 mmol/L (22-29); Chloride 102 mmol/L (96-108); Estimated Glomerular Filt Rate > 60; Glucose Random 151 mg/dL (60-115); Potassium 3.9 mmol/L (3.3-5.1); Sodium 136 mmol/L (135-145)
== END 2024-07-03 09:50 | disposition home or self-care (01) ==
LOC: HO.LAB 09:49
PROVIDERS: Visit Provider Internal Medicine Hypertension Specialist
DX: I10 Essential (primary) hypertension (principal)
CPT/HCPCS: 36415; 80048

== ENCOUNTER 2024-07-04 15:05 | Outpatient (AMB) | payer BC, SELFPAY ==
--- NOTE | 2024-07-04 15:12 | HO.NEPHOV_ITS ---
Vital Signs 07/04/24 15:14 Height 6 ft Weight 361 lb 6 oz BMI 49.0 BP 118/80 Blood Pressure Location Rt brachial Position Sitting Pulse 86 Pulse Source Pulse Oximeter Pulse Oximetry (%) 99 Oxygen Delivery Method Room Air Intake Visit Reasons: 2 MO FU/ LVM Color Separation Photographer Required: No Accompanied by: Self / Same As Patient Allergies No Known Allergies Allergy (Verified 07/04/24 15:14) Medication List - Last Reconciled 07/04/24 by Wil Jo MD amlodipine-valsartan 10-320 mg (Exforge) 1 tab PO DAILY carvedilol 6.25 mg See Protocol PO BID spironolacton-hydrochlorothiaz 25-25 mg 1 tab PO DAILY HPI Comments Details: 27-year-old man with obesity was recently hospitalized for shortness of breath. He had symptoms of viral illness. Subsequently was found have consulted failure. Blood pressure suboptimal. He was discharged home with after optimizing blood pressure. Recently had Cardiology evaluation and waiting for cardiac MRI. His serum creatinine has been stable at 0.9. He did have history of hemoptysis prior to hospitalization. He has had no gross hematuria no rash no joint pains. Today has no new complaints 10/22/23: Did not take any any meds for 6 weeks 11/12/2023. Overall feeling better. Seems to be compliant with his medications. 03/06/2024; Did not take his medications today 04/25/2024. Claims to be taking all his medications ;No specific complaints today 05/09/24;Doing well. No issues 07/04/24 28-year-old male presenting for medication follow-up for hypertension and recent blood work analysis. The patient's hypertension management is optimized with his current medication regimen, evidenced by well-controlled blood pressure readings. He has reported no adverse symptoms or side effects from his antihypertensive medication. Recent blood investigations showed improved kidney parameters, suggesting effective medical management. Additionally, the patient has noticed an increase in weight over the recent months due to decreased exercise and less attention to diet. [facility] Medical History (Updated 10/30/23 @ 00:03 by Alecia Carrasco) Pneumonia No known health problems Social History Household Members: Family Housing: House Do you presently have visiting nurse or other home services: No Alcohol intake: never Patient Tobacco Use Status: Never used Tobacco Second Hand Smoke Exposure: No service: No Physical Exam Vital Signs: Last Vital Signs Pulse 86 07/04/24 15:14 BP 118/80 07/04/24 15:14 Pulse Ox 99 07/04/24 15:14 Oxygen Delivery Method Room Air 07/04/24 15:14 BMI result Body Mass Index 49.0 Results Reviewed Nephrology Results: Sodium 136 mmol/L (135-145) 07/03/24 Potassium 3.9 mmol/L (3.3-5.1) 07/03/24 Chloride 102 mmol/L (96-108) 07/03/24 Carbon Dioxide 25 mmol/L (22-29) 07/03/24 BUN 17 mg/dL (9-16) H 07/03/24 Creatinine 0.88 mg/dL (0.5-1.4) 07/03/24 Calcium 9.4 mg/dL (8.4-10.2) 07/03/24 Assessment & Plan Assessment & Plan (1) HTN (hypertension): Code(s): I10 - Essential (primary) hypertension Category: Medical Qualifiers: Hypertension type: unspecified Qualified Code(s): I10 - Essential (primary) hypertension Plan Young man with obesity and the hypertension. The plan for managing this patient's essential hypertension involves continuation of his current medication, as his blood pressure is well-controlled at 118/80 mmHg. The patient has adhered to taking medication daily, supported by a reminder system, and reports no adverse symptoms. Discussion of recent blood work showed improved kidney function, indicating effective treatment. The patient is advised to increase physical activity and improve dietary habits to address recent weight gain. Although the patient lacks a primary care physician, establishing care with one is recommended. Reassessment is planned for three months, with interim check-in if symptoms develop. Weekly blood pressure monitoring is advised. Coding Level of Care Code Est Pt Level 4 (03259) Diagnoses HTN (hypertension) I10 Hypertension type: unspecified
[2024-07-04 15:14] VITALS: BP 118/80; PULSE 86; O2SAT 99; BMI 49.0
--- OUTSIDE RECORDS SUMMARY | 2024-07-04 16:04 | XMS_ITS | Encounter Summary ---
Author Organization [employer] Address [address] [place] [address] Care Team Providers Care Ict Educator Name Role Phone Fausto Kirkpatrick MD Primary Care Prov ider Reason for Visit * Reason Onset Date Comments Appointment 03/27/2022 Patient called i n inquiring about oral surgery for wisdom tooth extraction. Patient was informed that office will reach out to him for scheduling based on wait list DR Encounter Details Date Type Department Care Team ([facility] Contact Info) Description 03/27/2022 Telephone [facility] ADULT DENTAL [address] [place] [address] Topher Daly, DMD [address] [place] [address] Appointment (Patient called in inquiring about oral [...] on filedocumented in this encounter Care Teams Ict Educator Relationship Specialty Start Date End Date Fausto Kirkpatrick MD [address] [place] [id number] PCP - General Internal Medicine 12/02/18 05/03/23 documented as of this encounter
--- OUTSIDE RECORDS SUMMARY | 2024-07-04 16:04 | XMS_ITS | Clinical Summary ---
Author Organization [facility] ity Address [id number] [place] [address] Care Team Providers Care Skill Labor Name Role Phone Unavailable Primary Care Provider Unavailabl e Social History Tobacco Use Types Packs/Day Years Used Date Smoking Tobacco: Never Assessed Sex and Gender Information Value Date Recorded Sex Assigned at Not on file Legal Sex Male 5:21 AM EST Gender Identity Not on file Sexual Orientation Not on file Plan of Treatment Upcoming Encounters Date Type Department Care Team ([facility] st Contact Info) Description 08/02/2024 9:30 AM EDT Office Visit Adult Medicine [address] [address] Yesi Holliday MD [address] [place] [id number] Health Maintenance Due Date Last Done Comments [...]
--- OUTSIDE RECORDS SUMMARY | 2024-07-04 16:04 | XMS_ITS ---
Author Organization [facility] Address [address] [place] [address] Care Team Providers Care Frit Maker Name Role Phone AJIT ERVIN Unavailable [phone] MEDICATIONS Medication SIG (Take, Route, Frequency, Duration) Notes Start Date End Date Status Furosemide 40 MG 1 tablet Orally Once a day Active Carvedilol 25 MG 1 tablet with food O rally Twice a day Active Losartan Potassium 25 MG 1 tablet Orally Once a day Active Encounters Encounter Location Date Provider Diagnosis [address] [place] [phone] 02/04/2024 AJIT ERVIN PLAN OF TREATMENT No Information Progress Notes * Calvin ZURITAsugarDOB:1995 ( 28 yo M)Acc No.[id number]:02/04/2024 CPE Patient:??Roberto ZURITA Provider:??AJIT ERVIN PA-C :1995?Age:28 Y?Sex:Ma le Date:02/04/2024 Address:[address] [place], [place] [id number] Subjective: * Chief Complaints: * ? * Medical History:?? * Medications:??Taking Furosem renata 40 MG Tablet 1 tablet Orally Once a day , Taking Carvedilol 25 MG Tablet 1 tablet with food Orally Twice a day , Taking Losartan Potassium 25 MG Tablet 1 tablet Orally Once a day Objective: Assessment: Plan: * Treatment: * Procedure Codes:??39029 NO S HOW OFFICE VISIT * Images: Billing Information: * Visit Code:?? * Procedure Codes:?? 81767 NO SHOW OFFICE VISIT. Care Plan Details* * Sign off status: Pending * Provider:??AJIT ERVIN PA-C Date:?? 02/04/2024
--- OUTSIDE RECORDS SUMMARY | 2024-07-04 16:05 | XMS_ITS ---
Author Organization [facility] Address [address] [place] [address] Care Team Providers Care Registered Private Duty Nurse Name Role Phone AJIT ERVIN Unavailable [phone] REASON FOR VISIT Cancel Appointment Request Encounters Encounter Location Date Provider Diagnosis [address] [place] [phone] 02/03/2024 AJIT ERVIN PLAN OF TREATMENT No Information Progress Notes * Roberto TRIVEDIDOB:1995 ( 28 yo M)Acc No.[id number]:02/03/2024 Patient:??ALISSACalvin EDUARDOani :1995?Age:28 Y?Sex:Latonia tracy Address:[address] [place] [phone] * true * Date:??
--- OUTSIDE RECORDS SUMMARY | 2024-07-04 16:05 | XMS_ITS | Patient Health Record ---
Author Organization [facility] Address [address] [place] [address] Care Team Providers Care Garden Center Manager Name Role Phone AJIT ERVIN Unavailable [phone] REASON FOR REFERRAL No Information MEDICATIONS Medication [...] Vitamin D deficiency, unspecified (E55.9) Active confirmed 10476222 Problem Encounter for general adult medical examination without abnormal findings (Z00.00) Active confirmed 696508663 Problem Hypertension, unspecified type (I10) Active confirmed 90242954 Problem Hypertension, essential (I10) Active confirmed Problem Kidney dysfunction (N28.9) Active confirmed 06649493 VITAL SIGNS Heart Rate 81 /min 11/10/2023 Blood pressure diastolic 84 mm Hg 11/10/2023 Oximetry 98 % 11/10/2023 Height 72 in 11/10/2023 Blood pressure systolic 144 mm Hg 11/10/2023 Weight 331 lbs 11/10/2023 BMI 44.89 kg/m2 11/10/2023 Encounters Encounter Location Date Provider Diagnosis [address] [address] 11/24/2023 AJIT ERVIN Hypertension, unspecified type I10 ; Encounter for general adult medical examination without abnormal findings Z00.00 and Kidney dysfunction N28.9 [address] [address] 12/09/2023 AJIT ERVIN [address] [place] [address] 01/03/2024 [facility] [address] [place] [address] 02/04/2024 [facility] [address] [place] [address] 03/02/2024 [facility] [address] [place] [address] 10/27/2023 [facility] Hypertension, unspecified type I10 [address] [place] [address] 11/10/2023 [facility] Hypertension, unspecified type I10 and Kidney dysfunction N28.[address] [place] [address] 11/10/2023 [facility] [address] [place] [address] 11/10/2023 [facility] [address] [place] [address] 11/24/2023 [facility] [address] [place] [address] 11/24/2023 [facility] [address] [place] [address] 11/24/2023 [facility] [address] [place] [address] 11/24/2023 [facility] [address] [place] [address] 12/09/2023 [facility] [address] [place] [address] 12/09/2023 [facility] [address] [place] [address] 02/03/2024 [facility] [address] [place] [address] 02/03/2024 [facility] ASSESSMENTS Encounter Date Diagnosis Assessment Notes Treatment [...] diagnosis of high blood pressure, following with renal/advertising statistical clerk Juanita Jo MD with [facility]. Medical records requested for my review. Patient states he has been on carvedilol 25 mg twice daily in addition to losartan 25 mg daily for about a week and a half now. Scheduled to follow-up with [facility] provider 11/11/2023. BP initially elevated in [...] reviewed. Dictation completed with the use of [employer] voice recognition software, prone to medical misidentifications [...] currently following with Juanita Jo MD with [facility]. Taking furosemide [...] #Kidney dysfunction: 1 prior note obtained from [facility] and reviewed. [...] reviewed. Dictation completed with the use of [employer] voice recognition software, prone to medical misidentifications [...] currently following with Juanita Jo MD with [facility]. Taking furosemide [...] #Kidney dysfunction: 1 prior note obtained from [facility] and reviewed. [...] reviewed. Dictation completed with the use of [employer] voice recognition software, prone to medical misidentifications [...] currently following with Juanita Jo MD with [facility]. Taking furosemide [...] #Kidney dysfunction: 1 prior note obtained from [facility] and reviewed. [...] reviewed. Dictation completed with the use of [employer] voice recognition software, prone to medical misidentifications [...] currently following with Juanita Jo MD with [facility]. Taking furosemide [...] #Kidney dysfunction: 1 prior note obtained from [facility] and reviewed. Per this [...] reviewed. Dictation completed with the use of [employer] voice recognition software, prone to medical misidentifications [...] currently following with Juanita Jo MD with [facility]. Taking furosemide [...] #Kidney dysfunction: 1 prior note obtained from [facility] and reviewed. [...] reviewed. Dictation completed with the use of [employer] voice recognition software, prone to medical misidentifications [...] Insured Coverage Start Date Coverage End Date [employer] [facility] [address] [place] [address] [id number] Roberto Trivedi Self - patient is the insured MEDICAL (GENERAL) HISTORY Medical History History ICD Code Hypertension, essential I10
--- OUTSIDE RECORDS SUMMARY | 2024-07-04 16:05 | XMS_ITS | Clinical Summary ---
Author Organization [employer] Address [address] [place] [address] 7[address] [place] [address] Care Team Providers Care Wallpaper Hanger Helper Name Role Phone Unavailable Primary Care Provider [...] Insurance [facility] STAND ADULT HSN PARTIAL D[facility]AL-[facility] MEDICAID STAND ADULT
--- OUTSIDE RECORDS SUMMARY | 2024-07-04 16:05 | XMS_ITS ---
Author Organization [facility] Address [address] [place] [address] Care Team Providers Care Marine Fisheries Technician Name Role Phone AJIT ERVIN Unavailable [phone] Encounters Encounter Location Date Provider Diagnosis [address] [place] [phone] 03/02/2024 AJIT ERVIN PLAN OF TREATMENT No Information Progress Notes * Roberto ZURITADOB:1995 ( 28 yo M)Acc No.[id number]:03/02/2024 CPE Patient:??Roberto ZURITA Provider:??AJIT ERVIN PA-C :1995?Age:28 Y?Sex:Ma tracy Date:03/02/2024 Address:[address] [place], [place] [id number] Subjective: * Chief Complaints: * ? * Medical History:?? Objective: Assessment: Plan: * Treatment: * Images: Billing Information: * Visit Code:?? * Procedure Codes:?? Care Plan Details* * Sign off status: Pending * Provider:??AJIT ERVIN PA-C Date:?? 03/02/2024
== END 2024-07-04 15:22 | disposition home or self-care (01) ==
LOC: HO.HKA 15:06
PROVIDERS: Visit Provider Internal Medicine Hypertension Specialist
DX: I10 Essential (primary) hypertension (principal)
CPT/HCPCS: 99214

== ENCOUNTER 2024-10-10 16:00 | Outpatient (AMB) | payer BC, SELFPAY ==
--- OUTSIDE RECORDS SUMMARY | 2024-02-04 05:15 | XMS_ITS ---
Author Organization [facility] [address] Address [address] [place] [address] Care Team Providers Care Technology Sales Consultant Name Role Phone AJIT ERVIN Unavailable [phone] Medications Medication SIG (Take, Route, Frequency, Duration) Notes Start Date End Date Status Furosemide 40 MG 1 tablet Orally Once a day Active Carvedilol 25 MG 1 tablet with food O rally Twice a day Active Losartan Potassium 25 MG 1 tablet Orally Once a day Active Encounters Encounter Location Date Provider Diagnosis [facility] [address] [address] 02/04/2024 AJIT ERVIN Plan Of Treatment No Information Progress Notes * Roberto ZURITADOB:1995 ( 29 yo M)Acc No.[id number]:02/04/2024 CPE Patient: Roberto MCALLISTER Provider: William ERVIN PA-C :1995 A ge:28 Y S ex:Male Date:02/04/2024 Address:[address] [place], [place] [phone] Subjective: * Chief Complaints: * * Medical [...] Information: * Visit Code: * Procedure Codes: 46328 NO SHOW OFFICE VISIT. Care Plan Details* * Electronic signature of AGUSTIN ERVIN PA-C on 10/10/2024 at 05:30 PM EDT Sign off status: Pending * Provider: William ERVIN PA-C Date: 1 04/06/2023 Generated for Neha abraham/Micaela/Luis on: 0 10/10/2024 05:30 PM EDT
[2024-10-10 16:02] VITALS: BP 132/90; PULSE 81; O2SAT 99; BMI 48.3
--- NOTE | 2024-10-10 16:02 | HO.NEPHOV ---
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 He had symptoms of viral illness. Subsequently was found have consulted failure. Blood pressure suboptimal. He was discharged home with after optimizing blood pressure. Recently had Cardiology evaluation and waiting for cardiac MRI. His serum creatinine has been stable at 0.9. He did have history of hemoptysis prior to hospitalization. He has had no gross hematuria no rash no joint pains. Today has no new complaints 10/22/23: Did not take any any meds for 6 weeks 11/12/2023. Overall feeling better. Seems to be compliant with his medications. 03/06/2024; Did not take his medications today 04/25/2024. Claims to be taking all his medications ;No specific complaints today 05/09/24;Doing well. No issues 07/04/24 28-year-old male presenting for medication follow-up for hypertension and recent blood work analysis. The patient's hypertension management is optimized with his current medication regimen, evidenced by well-controlled blood pressure readings. He has reported no adverse symptoms or side effects from his antihypertensive medication. Recent blood investigations showed improved kidney parameters, suggesting effective medical management. Additionally, the patient has noticed an increase in weight over the recent months due to decreased exercise and less attention to diet. 10/10/24 Doing well.No issues Gained some weight Repeat BP 120/82 [facility] Medical History (Updated 10/30/23 @ 00:03 by Alecia Carrasco) Pneumonia No known health problems Social History Household Members: Family Housing: House Do you presently have visiting nurse or other home services: No Alcohol intake: never Patient Tobacco Use Status: Never used Tobacco Second Hand Smoke Exposure: No service: No Physical Exam Vital Signs: Last Vital Signs Pulse 81 10/10/24 16:02 BP 132/90 H 10/10/24 16:02 Pulse Ox 99 10/10/24 16:02 Oxygen Delivery Method Room Air 10/10/24 16:02 BMI result Body Mass Index 48.3 Comfortable Neck supple no JVD. Lungs entry equal no rales. Heart S1-S2 heard no gallop or rub. Abdomen soft nontender. Neuro alert awake oriented. No asterixis. Extremities no edema. Results Reviewed Nephrology Results: Sodium, (135-145) 136 mmol/L 07/03/24 Potassium, (3.3-5.1) 3.9 mmol/L 07/03/24 Chloride, (96-108) 102 mmol/L 07/03/24 Carbon Dioxide, (22-29) 25 mmol/L 07/03/24 BUN, (9-16) 17 mg/dL H 07/03/24 Creatinine, (0.5-1.4) 0.88 mg/dL 07/03/24 Calcium, (8.4-10.2) 9.4 mg/dL 07/03/24 Renal US 05/20/23 Assessment & Plan Assessment & Plan (1) HTN (hypertension): Code(s): I10 - Essential (primary) hypertension Category: Medical Qualifiers: Hypertension type: unspecified Qualified Code(s): I10 - Essential (primary) hypertension Plan Young man with obesity and the hypertension. The plan for managing this patient's essential hypertension involves continuation of his current medication, as his blood pressure is well-controlled at 118/80 mmHg. The patient has adhered to taking medication daily, supported by a reminder system, and reports no adverse symptoms. Discussion of recent blood work showed improved kidney function, indicating effective treatment. The patient is advised to increase physical activity and improve dietary habits to address recent weight gain. Although the patient lacks a primary care physician, establishing care with one is recommended. Reassessment is planned for three months, with interim check-in if symptoms develop. Weekly blood pressure monitoring is advised. 10/10/24 BP acceptable No change NEeds weight loss Low salt diet Coding Level of Care Code Est Pt Level 3 (85305) Diagnoses HTN (hypertension) I10 Hypertension type: unspecified
--- OUTSIDE RECORDS SUMMARY | 2024-10-10 17:30 | XMS_ITS | Encounter Summary ---
Author Organization [employer] Address [address] [place] [address] Care Team Providers Care Teenage Babysitter Name Role Phone Fausto Kirkpatrick MD Primary Care Prov ider Reason for Visit * Reason Onset Date Comments Appointment 03/27/2022 Patient called i n inquiring about oral surgery for wisdom tooth extraction. Patient was informed that office will reach out to him for scheduling based on wait list DR Encounter Details Date Type Department Care Team ([facility] st Contact Info) Description 03/27/2022 Telephone [facility] ADULT DENTAL [address] [place], [place] [phone] Topher Daly, DMD [address] [place], [place] [phone] Appointment (Patient called in inquiring about oral [...] on filedocumented in this encounter Care Teams Teenage Babysitter Relationship Specialty Start Date End Date Fausto Kirkpatrick MD [address] [place] [id number] PCP - General Internal Medicine 12/02/18 05/03/23 documented as of this encounter
== END 2024-10-10 16:13 | disposition home or self-care (01) ==
LOC: HO.HKA 16:01
PROVIDERS: Visit Provider Internal Medicine Hypertension Specialist
DX: I10 Essential (primary) hypertension (principal)
CPT/HCPCS: 99213

== ENCOUNTER 2024-11-02 15:17 | Outpatient (AMB) | payer BC, SELFPAY ==
--- OUTSIDE RECORDS SUMMARY | 2023-11-24 05:00 | XMS_ITS ---
Author Organization [facility] [address] Address [address] [place] [address] Care Team Providers Care Dye Range Feeder Name Role Phone AJIT ERVIN Unavailable [phone] Medications Medication SIG (Take, Route, Frequency, Duration) [...] Status Risk Notes Problem Adult health examination ([id number]) Encounter for general adult medical examination without abnormal findings (Z00.00) Active confirmed Encounters Encounter Location Date Provider Diagnosis [facility] [address] [place] [phone] 11/24/2023 AJIT ERVIN Hypertension, unspecified type I10 [...] currently following with Juanita Jo MD with [facility]. Taking furosemide 40 mg daily, [...] #Kidney dysfunction: 1 prior note obtained from [facility] and reviewed. Per this documentation [...] reviewed. Dictation completed with the use of picoChip voice recognition software, prone to medical misidentifications [...] currently following with Juanita Jo MD with [facility]. Taking furosemide 40 mg daily, [...] #Kidney dysfunction: 1 prior note obtained from [facility] and reviewed. Per this documentation [...] reviewed. Dictation completed with the use of picoChip voice recognition software, prone to medical misidentifications [...] currently following with Juanita Jo MD with [facility]. Taking furosemide 40 mg daily, [...] #Kidney dysfunction: 1 prior note obtained from [facility] and reviewed. Per this documentation [...] reviewed. Dictation completed with the use of picoChip voice recognition software, prone to medical misidentifications and grammatical errors. All errors are unintentional. Although the practitioner does try to identify and correct errors, some may be present. Please do not hesitate to contact the practitioner for clarification. Plan Of Treatment No Information Progress Notes * Roberto TRIVEDIDOB:1995 ( 29 yo M)Acc No.[id number]:11/24/2023 CPE Patient: Roberto MCALLISTER Provider: William ERVIN PA-C :1995 A ge:28 Y S ex:Male Date:11/24/2023 Address:[address] [place], [place] [phone] Subjective: * Chief Complaints: * * HPI: [...] bilateral upper and lower extremities with flexion/extension. Windows Vmware Administrator strength 5/5. Sensation intact. Neuro: CN II-XII [...] currently following with Juanita Jo MD with [facility]. Taking furosemide 40 mg daily, [...] #Kidney dysfunction: 1 prior note obtained from [facility] and reviewed. Per this documentation [...] reviewed. Dictation completed with the use of picoChip voice recognition software, prone to medical misidentifications and grammatical errors. All errors are unintentional. Although the practitioner does try to identify and correct errors, some may be present. Please do not hesitate to contact the practitioner for clarification. Plan: * Treatment: * Images: Billing Information: * Visit Code: * Procedure Codes: Care Plan Details* * Electronic signature of AGUSTIN ERVIN PA-C on 11/02/2024 at 06:34 PM EDT Sign off status: Pending * Provider: William ERVIN PA-C Date: Generated for Neha abraham/Micaela/Lynetteitting on: 0 11/02/2024 06:34 PM EDT History and Physical Notes * [...] bilateral upper and lower extremities with flexion/extension. Windows Vmware Administrator strength 5/5. Sensation intact. Neuro: CN II-XII grossly intact. Steady gait with non-assisted ambulation observed. Psych: Stable mood and affect.
--- OUTSIDE RECORDS SUMMARY | 2023-12-09 06:30 | XMS_ITS ---
Author Organization [facility] [address] Address [address] [place] [address] Care Team Providers Care Product Management Intern Name Role Phone AJIT ERVIN Unavailable [phone] Encounters Encounter Location Date Provider Diagnosis [facility] [address] [address] 12/09/2023 AJIT ERVIN Plan Of Treatment No Information Progress Notes * Roberto ZURITADOB:1995 ( 29 yo M)Acc No.[id number]:12/09/2023 CPE Patient: Roberto MCALLISTER Provider: William ERVIN PA-C :1995 A ge:28 Y S ex:Male Date:12/09/2023 Address:[address] [place], [place] [phone] Subjective: * Chief Complaints: * * Medical [...]
--- OUTSIDE RECORDS SUMMARY | 2024-01-03 05:15 | XMS_ITS ---
Author Organization [facility] [address] Address [address] [place] [address] Care Team Providers Care Paint Spray Inspector Name Role Phone AJIT ERVIN Unavailable [phone] Encounters Encounter Location Date Provider Diagnosis [facility] [address] [address] 01/03/2024 AJIT ERVIN Plan Of Treatment No Information Progress Notes * Roberto TRIVEDIDOB:1995 ( 29 yo M)Acc No.[id number]:01/03/2024 CPE Patient: Roberto MCALLISTER Provider: William ERVIN PA-C :1995 A ge:28 Y S ex:Male Date:01/03/2024 Address:[address] [place], [place] [phone] Subjective: * Chief Complaints: * * Medical History: Objective: * Vitals: Assessment: Plan: * Treatment: * Images: Billing Information: * Visit Code: * Procedure Codes: Care Plan Details* * Electronic signature of AGUSTIN ERVIN PA-C on 11/02/2024 at 06:34 PM EDT Sign off status: Pending * Provider: William ERVIN PA-C Date: 03/04/2023 Generated for Neha abraham/Micaela/Lynetteitting on: 0 11/02/2024 06:34 PM EDT
--- OUTSIDE RECORDS SUMMARY | 2024-02-04 05:15 | XMS_ITS ---
Author Organization [facility] [address] Address [address] [place] [address] Care Team Providers Care Garment Manufacturer Name Role Phone AJIT ERVIN Unavailable [phone] Medications Medication SIG (Take, Route, Frequency, Duration) Notes Start Date End Date Status Furosemide 40 MG 1 tablet Orally Once a day Active Carvedilol 25 MG 1 tablet with food O rally Twice a day Active Losartan Potassium 25 MG 1 tablet Orally Once a day Active Encounters Encounter Location Date Provider Diagnosis [facility] [address] [address] 02/04/2024 AJIT ERVIN Plan Of Treatment No Information Progress Notes * Roberto ZURITADOB:1995 ( 29 yo M)Acc No.[id number]:02/04/2024 CPE Patient: Roberto MCALLISTER Provider: William ERVIN PA-C :1995 A ge:28 Y S ex:Male Date:02/04/2024 Address:[address] [place], [place] [phone] Subjective: * Chief Complaints: * * Medical [...] Information: * Visit Code: * Procedure Codes: 70380 NO SHOW OFFICE VISIT. Care Plan Details* * Electronic signature of AGUSTIN ERVIN PA-C on 11/02/2024 at 06:34 PM EDT Sign off status: Pending * Provider: William ERVIN PA-C Date: 1 04/06/2023 Generated for Neha abraham/Micaela/Luis on: 0 11/02/2024 06:34 PM EDT
--- OUTSIDE RECORDS SUMMARY | 2024-03-02 06:45 | XMS_ITS ---
Author Organization [facility] [address] Address [address] [place] [address] Care Team Providers Care Stage Director Name Role Phone AJIT ERVIN Unavailable [phone] Encounters Encounter Location Date Provider Diagnosis [facility] [address] [address] 03/02/2024 AJIT ERVIN Plan Of Treatment No Information Progress Notes * Roberto TRIVEDIDOB:1995 ( 29 yo M)Acc No.[id number]:03/02/2024 CPE Patient: Roberto MCALLISTER Provider: William ERVIN PA-C :1995 A ge:28 Y S ex:Male Date:03/02/2024 Address:[address] [place], [place] [phone] Subjective: * Chief Complaints: * * Medical History: Objective: * Vitals: Assessment: Plan: * Treatment: * Images: Billing Information: * Visit Code: * Procedure Codes: Care Plan Details* * Electronic signature of AGUSTIN ERVIN PA-C on 11/02/2024 at 06:34 PM EDT Sign off status: Pending * Provider: William ERVIN PA-C Date: 0 03/02/2024 Generated for Neha abraham/Micaela/Lynetteitting on: 0 11/02/2024 06:34 PM EDT
--- NOTE | 2024-11-02 15:19 | MHC.PC.OV ---
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 Required: No Accompanied by: Self / Same As Patient Allergies No Known Allergies Allergy (Verified 11/02/24 15:22) Tobacco use date assessed: 11/02/24 Dental Screening Dental Screen Date: 11/02/24 Did you have a dental visit in the last 12 months?: Yes Did you have a dental problem in the last 6 months where you did not have access to dental care?: No Was dental information given to patient?: Patient has dentist HPI HPI Comments History of Present Illness Details History of Present Illness The patient is a 29-year-old male presenting with hypertension, weight management concerns, and lower back pain. Hypertension: - The patient has a history of hypertension and is currently on multiple antihypertensive medications including amlodipine, valsartan, carvedilol, and spironolactone. - The patient is under the care of a psychological tests sales agent and last visited two weeks ago. Heart failure: - The patient experienced heart failure approximately two to three years ago, associated with a severe episode of pneumonia. - There has been no follow-up with a manager library since the initial episode, and no recent echocardiogram has been performed. Lower back pain: - The patient reports lower back pain that worsens with physical activity, particularly after moving to [place] three months ago. - No physical therapy has been undertaken yet, and the patient uses heating pads for relief. Obesity: - The patient expresses concern about weight gain and has attempted gym workouts, which were interrupted by a move and subsequent back pain. Suspected obstructive sleep apnea: - The patient reports snoring and is suspected to have obstructive sleep apnea, with a referral for a sleep study planned. Health Maintenance - Referral for sleep study to rule out obstructive sleep apnea. - Referral to physical therapy for lower back pain management. - Referral to a director of accreditation for weight management. - Baseline laboratory tests including CBC, A1c, lipid panel, and comprehensive metabolic panel ordered. Review of Systems - Cardiovascular: Denies chest pain, palpitations, or syncope. - Respiratory: Reports snoring. Denies dyspnea, cough, or wheezing. - Musculoskeletal: Reports lower back pain exacerbated by physical activity. - Neurological: Denies headaches or dizziness. 10-point ROS reviewed and negative except as noted in HPI Allergies Medications - Amlodipine for hypertension - Valsartan for hypertension - Carvedilol for hypertension - Spironolactone for hypertension Medication History Current Substance Use Substance Use History Past Medical History - Hypertension - Heart failure - Pneumonia Past Surgical History Family History Social History - Recently moved to [place], impacting exercise routine and contributing to lower back pain. - Reports gym attendance prior to move, interrupted by relocation and back pain. Physical Exam General: No apparent distress. Alert and oriented x 3. Head: Normocephalic, atraumatic Eyes: Pupils equal, round, and reactive to light. Extraocular movements intact Throat: Oropharynx clear. ropharynx clear. Mucus membranes moist Neck: Supple. No lymphadenopathy.left anterior descending artery distention. No jugular vein distention. No bruit. Cardiovascular: Regular rate and rhythm. Normal S1 and S2. No murmurs, gallops, or rubs. murmurs, rubs, or gallops Lungs: Clear to auscultation bilaterally. Breath sounds equal bilaterally. No rales, ronchi, or wheezes. Abdomen: Non-tender. Non-distended. Bowel sounds auscultated. No masses or organomegaly. hepatosplenomegaly. No mass/rebound/guarding Extremities: No clubbing, cyanosis, or edema.clubbing, cyanosis, and edema. 2+ pulses Neuro: Cranial nerves II-XII grossly intact. Motor/sensory intact. Reflexes 2+. Gait normal. Skin: Warm, dry, and intact. No rash. Discussion Notes During the visit, I discussed the patient's hypertension management and the importance of follow-up with a manager library due to past heart failure. We talked about the need for a sleep study to rule out obstructive sleep apnea, which could be contributing to his hypertension and weight issues. I also recommended physical therapy for his lower back pain and a referral to a director of accreditation for weight management. Baseline laboratory tests were ordered to assess his overall health status. The patient was informed about the potential use of medications like tirzepatide for weight loss if sleep apnea is confirmed. Follow-up appointments were discussed, and the patient was encouraged to return after completing the recommended tests and consultations. Plan 1. Resistant hypertension I1A.0 - Continue current antihypertensive medications: amlodipine, valsartan, carvedilol, and spironolactone. - Monitor blood pressure regularly and follow up with psychological tests sales agent as needed. 2. Personal history of other diseases of the circulatory system Z86.79 - Referral to manager library for follow-up and echocardiogram to assess current cardiac function. 3. Low back pain, unspecified M54.50 - Referral to physical therapy for management and strengthening exercises. - Use of heating pads for symptomatic relief. 4. Morbid (severe) obesity due to excess calories E66.01 HCC 22 - Referral to director of accreditation for dietary management and weight loss strategies. - Consideration of weight loss medications if obstructive sleep apnea is confirmed. 5. Other specified personal risk factors, not elsewhere classified Z91.89 - Referral for sleep study to confirm diagnosis. - Discuss potential treatment options including CPAP and weight loss medications if diagnosed. Treatment Summary Anticapatory Guidance Patient Instructions - Continue taking your blood pressure medications as prescribed. - Attend physical therapy sessions for your back pain. - Use heating pads for back pain relief, but avoid ibuprofen due to blood pressure concerns. - Follow up with the manager library and complete the echocardiogram as scheduled. - Complete the sleep study to assess for sleep apnea. - Visit the director of accreditation for dietary advice and weight management. [facility] Medical History Pneumonia No known health problems Family History Father No problems noted. Mother No problems noted. Social History (Updated 11/02/24 @ 15:21 by Latrice Orozco MA) Housing: Apartment Do you presently have visiting nurse or other home services: No Alcohol intake: current Alcohol intake frequency: holidays/special occasions only Patient Tobacco Use Status: Never used Tobacco Second Hand Smoke Exposure: No service: No Current occupational status: employed Cognitive needs: No Hearing needs: No Vision needs: No Questionnaire PHQ-9 Over the last 2 weeks, how often have you been bothered by any of the following problems? 1. Little interest or pleasure in doing things: not at all 2. Feeling down, depressed, or hopeless: not at all 3. Trouble falling or staying asleep, or sleeping too much: not at all 4. Feeling tired or having little energy: not at all 5. Poor appetite or overeating: not at all 6. Feeling bad about yourself - or that you are a failure or have let yourself or your family down: not at all 7. Trouble concentrating on things, such as reading the newspaper or watching television: not at all 8. Moving or speaking so slowly that other people could have noticed. Or the opposite - being so fidgety or restless that you have been moving around a lot more than usual: not at all 9. Thoughts that you would be better off or of hurting yourself in some way: not at all Total score: 0 Source: Developed by Drs. Nathan Garcia, Angie Gaston, Vj Plaza and colleagues, with an educational heber from [employer]. Thrive Questionnaire Date Thrive assessed: 11/02/24 I am a: Patient What is your living situation today?: I have a steady place to live Within the past 12 months, did the food you bought not last and you didn't have the money to get more?: Never true Within the past 12 months, did you worry whether your food would run out before you got money to buy more?: Never true Do you have trouble paying for medicines?: No Do you have trouble getting transportation to medical appointments?: No Do you have trouble paying your heating and electricity bill?: No Do you have trouble taking care of your child, family member or friend?: No Are you currently unemployed and looking for a job?: No Are you interested in more education?: No Please select the resources that you would like help with: None Currently or been in a relationship where the following occur: No concerns reported THRIVE Score: 0 AUDIT C Alcohol Use Questionnaire (AUDIT-C) 1. How often do you have a drink containing alcohol?: Monthly or less 2. How many drinks containing alcohol do you have on a typical day when you are drinking?: 1 or 2 3. How often do you have six or more drinks on one occasion?: Never Total Score: 1 VANCE-7 AMB Questionnaire VANCE-7 Date VANCE - 7 assessed: 11/02/24 Feeling nervous, anxious, or on edge: 0 = Not at all Not being able to stop or control worryin = Not at all Worrying too much about different things: 0 = Not at all Trouble relaxin = Not at all Being so restless that it is hard to sit still: 0 = Not at all Becoming easily annoyed or irritable: 0 = Not at all Feeling afraid as if something awful might happen: 0 = Not at all Total VANCE-7 score (0-4 normal; 5-9 mild; 10-14 moderate; 15-21 severe): 0 Source: Developed by Drs. Nathan Garcia, Angie Gaston, Vj Plaza and colleagues, with an educational heber from [email or web address]. Physical exam (Primary Care) Tobacco/Smoking Status: Tobacco use Status Patient Tobacco Use Status Never used Tobacco 11/02/24 15:23 PHQ-9: PHQ-9 Score PHQ-9: Total score 0 11/02/24 15:31 Thrive Assessment: Date of Thrive Assessment Date Thrive assessed 11/02/24 11/02/24 15:23 Currently or been in a relationship where the following occur: No concerns reported Coding Level of Care Code New Pt Level 3 (53387) Diagnoses Cardiomyopathy I42.9 Cardiomyopathy type: unspecified CHF (congestive heart failure) I50.9 Encounter to establish care with new provider Z. Routine lab draw Z01. Screening for depression Z13.31 Screening for diabetes mellitus Z13.1 Screening for lipoid disorders Z13.220 Resistant hypertension I1A.0 Counseling, unspecified Z71.9 Morbidly obese E66.01 Back pain M54.9 Assessment & Plan Assessment & Plan (1) Cardiomyopathy: Code(s): I42.9 - Cardiomyopathy, unspecified Category: Medical Qualifiers: Cardiomyopathy type: unspecified Qualified Code(s): I42.9 - Cardiomyopathy, unspecified (2) CHF (congestive heart failure): Code(s): I50.9 - Heart failure, unspecified Category: Medical (3) Encounter to establish care with new provider: Code(s): Z76.89 - Persons encountering health services in other specified circumstances (4) Routine lab draw: Code(s): Z01.89 - Encounter for other specified special examinations (5) Screening for depression: Code(s): Z13.31 - Encounter for screening for depression (6) Screening for diabetes mellitus: Code(s): Z13.1 - Encounter for screening for diabetes mellitus (7) Screening for lipoid disorders: Code(s): Z13.220 - Encounter for screening for lipoid disorders (8) Resistant hypertension: Code(s): I1A.0 - Resistant hypertension (9) Counseling, unspecified: Code(s): Z71.9 - Counseling, unspecified (10) Morbidly obese: Code(s): E66.01 - Morbid (severe) obesity due to excess calories Plan: (11) Back pain: Code(s): M54.9 - Dorsalgia, unspecified Category: Medical Plan Orders: Orders Hemoglobin A1c Today Z13.1 - Encounter for screening for diabetes mellitus, Z13.220 - Encounter for screening for lipoid disorders, Z76.89 - Persons encountering health services in other specified circumstances Hepatitis B Surface Antibody Today Z13.1 - Encounter for screening for diabetes mellitus, Z13.220 - Encounter for screening for lipoid disorders, Z76.89 - Persons encountering health services in other specified circumstances Hepatitis C Antibody Today Z13.1 - Encounter for screening for diabetes mellitus, Z13.220 - Encounter for screening for lipoid disorders, Z76.89 - Persons encountering health services in other specified circumstances Lipid Panel Today Z13.1 - Encounter for screening for diabetes mellitus, Z13.220 - Encounter for screening for lipoid disorders, Z76.89 - Persons encountering health services in other specified circumstances Vitamin D 1,25 dihydroxy Today Z13.1 - Encounter for screening for diabetes mellitus, Z13.220 - Encounter for screening for lipoid disorders, Z76.89 - Persons encountering health services in other specified circumstances Complete Blood Count Auto Diff Today Z13.1 - Encounter for screening for diabetes mellitus, Z13.220 - Encounter for screening for lipoid disorders, Z76.89 - Persons encountering health services in other specified circumstances Comprehensive Met. Panel Today Z13.1 - Encounter for screening for diabetes mellitus, Z13.220 - Encounter for screening for lipoid disorders, Z76.89 - Persons encountering health services in other specified circumstances Hepatitis B Surface Antigen Today Z13.1 - Encounter for screening for diabetes mellitus, Z13.220 - Encounter for screening for lipoid disorders, Z76.89 - Persons encountering health services in other specified circumstances HIV Ab/Ag Today Z13.1 - Encounter for screening for diabetes mellitus, Z13.220 - Encounter for screening for lipoid disorders, Z76.89 - Persons encountering health services in other specified circumstances Microalbumin, Random (w Creat) Today Z13.1 - Encounter for screening for diabetes mellitus, Z13.220 - Encounter for screening for lipoid disorders, Z76.89 - Persons encountering health services in other specified circumstances TSH reflex Free T4 Today Z13.1 - Encounter for screening for diabetes mellitus, Z13.220 - Encounter for screening for lipoid disorders, Z76.89 - Persons encountering health services in other specified circumstances PT Evaluation and Treatment Today M54.9 - Dorsalgia, unspecified CA Echo Limited Today I42.9 - Cardiomyopathy, unspecified ECG 12 lead EKG Today I42.9 - Cardiomyopathy, unspecified Referrals Nutrition/Dietitian Referral E66.01 - Morbid (severe) obesity due to excess calories Sleep Medicine Referral E66.01 - Morbid (severe) obesity due to excess calories, I1A.0 - Resistant hypertension
[2024-11-02 15:35] VITALS: BP 144/112; PULSE 84; RESP 16; TEMP 36.8; O2SAT 97; BMI 48.3
--- OUTSIDE RECORDS SUMMARY | 2024-11-02 18:35 | XMS_ITS | Patient Health Record ---
Author Organization [facility] [address] Address [address] [place] [address] Care Team Providers Care Storage Center Manager Name Role Phone AJIT ERVIN Unavailable [phone] Reason For Referral No Information Medications Medication SIG (Take, Route, Frequency, Duration) Notes Start Date End Date Status Furosemide 40 MG 1 tablet Orally Once a day Active Carvedilol 25 MG 1 tablet with food O rally Twice a day Active Losartan Potassium 25 MG 1 tablet Orally Once a day Active Problems Problem Type SNOMED Code ICD Code Onset Dates Problem Status W/U Status Risk Notes Problem Vitamin D deficiency (34347617) Vitamin D deficiency, unspecified (E55.9) Active confirmed Problem Adult health examination (289251051) Encounter for general adult medical examination without abnormal findings (Z00.00) Active confirmed Problem Essential hypertension (88109146) Hypertension, unspecified type (I10) Active confirmed Problem Essential hypertension (21118824) Hypertension, essential (I10) Active confirmed Problem Disorder of kidney and/or ureter (471213116) Kidney dysfunction (N28.9) Active confirmed Vital Signs Heart Rate 81 /min 11/10/2023 Blood pressure diastolic 84 mm Hg 11/10/2023 Oximetry 98 % 11/10/2023 Height 72 in 11/10/2023 Blood pressure systolic 144 mm Hg 11/10/2023 Weight 331 lbs 11/10/2023 BMI 44.89 kg/m2 11/10/2023 Encounters Encounter Location Date Provider Diagnosis [facility] [address] [facility] [address] [place] [address] 11/10/2023 AJIT ERVIN Hypertension, unspecified type I10 and Kidney dysfunction N28.9 [facility] [address] [facility] [address] [place] [address] 11/10/2023 AJIT ARCADIO [facility] [address] [place] [address] 11/10/2023 AJIT ARCADIO [facility] [address] [place] [address] 11/24/2023 AJIT ARCADIO [facility] [address] [place] [address] 11/24/2023 AJIT ARCADIO [facility] [address] [place] [address] 11/24/2023 AJIT ARCADIO [facility] [address] [place] [address] 11/24/2023 AJIT ARCADIO [facility] [address] [place] [address] 12/09/2023 AJIT ARCADIO [facility] [address] [place] [address] 12/09/2023 AJIT ARCADIO [facility] [address] [place] [address] 02/03/2024 AJIT ARCADIO [facility] [address] [place] [address] 02/03/2024 AJIT ERVIN Assessments Encounter Date Diagnosis (ICD Code) Assessment Notes Treatment Notes Treatment Clinical Notes Section Notes 11/10/2023 Hypertension, unspecified type (ICD-10 - I10) Roberto is a 28-year-old male with a PMH of HTN that presents for BP follow-up #HTN: Patient with history of HTN currently following with Juanita Jo MD with [facility]. Taking furosemide 40 mg daily, [...] #Kidney dysfunction: 1 prior note obtained from [facility] and reviewed. Per this documentation [...] reviewed. Dictation completed with the use of [employer] voice recognition software, prone to medical misidentifications [...] currently following with Juanita Jo MD with [facility]. Taking furosemide 40 mg daily, [...] #Kidney dysfunction: 1 prior note obtained from [facility] and reviewed. Per this documentation [...] reviewed. Dictation completed with the use of [employer] voice recognition software, prone to medical misidentifications and grammatical errors. All errors are unintentional. Although the practitioner does try to identify and correct errors, some may be present. Please do not hesitate to contact the practitioner for clarification. 11/24/2023 Roberto is a 28-year-old male with a PMH of HTN that presents for BP follow-up #HTN: Patient with history of HTN currently following with Juanita Jo MD with [facility]. Taking furosemide 40 mg daily, [...] #Kidney dysfunction: 1 prior note obtained from [facility] and reviewed. Per this documentation [...] reviewed. Dictation completed with the use of [employer] voice recognition software, prone to medical misidentifications and grammatical errors. All errors are unintentional. Although the practitioner does try to identify and correct errors, some may be present. Please do not hesitate to contact the practitioner for clarification. Plan Of Treatment Pending Test Test Name Order Date CBC (COMPLETE BLOOD COUNT) WITH DIFF 05/2023 COMPREHENSIVE METABOLIC PANEL 10/27/2023 LIPID PANEL 10/27/2023 HEMOGLOBIN A1c 10/27/2023 TSH 10/27/2023 VITAMIN D, 1,25 DIHYDROXY LC/MS/MS 10/26 Insurance Providers Payer Name Payer Address Payer Phone Subscriber Number Group Number Insured Name Patient Relationship to Insured Coverage Start Date Coverage End Date [facility] [address] [place] [address] [id number] Roberto Trivedi Self - patient is the insured Medical (General) History Medical History History ICD Code Hypertension, essential I10
== END 2024-11-02 16:08 | disposition home or self-care (01) ==
LOC: HO.HMCFMS 15:18
PROVIDERS: PCP Student in an Organized Health Care Education/Training Program; Visit Provider Student in an Organized Health Care Education/Training Program
DX: I42.9 Cardiomyopathy, unspecified (principal); I50.9 Heart failure, unspecified; I1A.0 Resistant hypertension; E66.01 Morbid (severe) obesity due to excess calories; Z68.42 Body mass index [BMI] 45.0-49.9, adult; M54.9 Dorsalgia, unspecified

== ENCOUNTER 2024-11-02 15:17 | Outpatient (REF) | payer BC, SELFPAY ==
[2024-11-02 17:28] LABS: MANUAL DIFF FLAG NO
[2024-11-02 17:36] LABS: Hematocrit 40.5 % (42.0-52.0); Hemoglobin 14.5 g/dl (14.0-18.0); Imm Gran Abs Auto 0.02 X10*3/uL (0.00-0.03); Imm Gran Pct Auto 0.2 % (0.0-0.4); Lymphocytes Absolute Auto 2.9 X10*3/uL (1.2-4.9); Mean Corpuscular HGB Conc 35.8 g/dl (31.0-36.0); Mean Corpuscular Hemoglobin 26.3 pg (27.0-33.0); Mean Corpuscular Volume 73.4 fL (80.0-98.0); NRBC Abs Auto 0.000 X10*3/uL (0.0-0.012); NRBC Pct Auto 0.0 /100WBC (0.0-0.2); Platelet Count 282 X10*3/uL (160-400); Red Blood Count 5.52 X10*6/uL (4.60-5.80); White Blood Count 8.2 X10*3/uL (4.8-10.8)
[2024-11-02 17:41] LABS: Hemoglobin A1C 150.9237 umol/L
[2024-11-02 18:14] LABS: Albumin Level 4.8 g/dL (3.5-5.0); Alkaline Phosphatase 43 U/L (39-117); Anion Gap 14 (12-20); Aspartate Amino Transferase 56 U/L (5-37); Blood Urea Nitrogen 15 mg/dL (9-16); Calcium 9.5 mg/dL (8.4-10.2); Carbon Dioxide 26 mmol/L (22-29); Chloride 101 mmol/L (96-108); Cholesterol 217 mg/dL (<200); Estimated Glomerular Filt Rate > 60; HDL Cholesterol 34 mg/dL (>40); Potassium 3.8 mmol/L (3.3-5.1); Sodium 137 mmol/L (135-145); Total Protein 8.1 g/dL (6.5-8.0); Triglycerides 163 mg/dL (<150)
[2024-11-02 18:20] LABS: Alanine Aminotransferase 72 U/L (0-40)
--- OUTSIDE RECORDS SUMMARY | 2024-11-02 18:54 | XMS_ITS | Encounter Summary ---
Author Organization [employer] Address [address] [place] [address] Care Team Providers Care Manager Field Services Name Role Phone Fuasto Kirkpatrick MD Primary Care Prov ider Reason for Visit * Reason Onset Date Comments Appointment 03/27/2022 Patient called i n inquiring about oral surgery for wisdom tooth extraction. Patient was informed that office will reach out to him for scheduling based on wait list DR Encounter Details Date Type Department Care Team ([facility] st Contact Info) Description 03/27/2022 Telephone [facility] [address] [place], [place] [phone] Topher Daly, DMD [address] [place], [place] [phone] Appointment (Patient called in inquiring about oral [...] on filedocumented in this encounter Care Teams Manager Field Services Relationship Specialty Start Date End Date Fausto Kirkpatrick MD [address] [place] [phone] PCP - General Internal Medicine 12/02/18 05/03/23 documented as of this encounter
--- OUTSIDE RECORDS SUMMARY | 2024-11-02 18:54 | XMS_ITS | Clinical Summary ---
Author Organization [employer] Address [address] [place] [address] [address] [place] [address] Care Team Providers Care Civilian Technician Name Role Phone Unavailable Primary Care Provider [...] 1996 HIV Screening 1996 SDOH Screening 1996 Disability Screening 1996 Alcohol/Substance Use Screening 2008 Family Planning (PISQ) 07/23/2011 Hepatitis C Screening 2014 DTaP/Tdap/Td Vaccines (7 - Td or Tdap) 05/15/2018 05/15/2008, 09/29/2000, 02/19/1998, Additional history exists Tobacco Screening 04/14/2023 04/14/2022 Dental X-Ray: Bitewings 04/15/2023 04/14/2022 COVID-19 Vaccine ( season) 2024 06/25/2020, 06/03/2020 Influenza Vaccine (#1) 2024 11/22/2015, 2008 Dental X-Ray: Full Mouth 04/15/2025 04/14/2022, 02/23 Zoster Vaccines (1 of 2) 2046 RSV Patients and Patients Aged 60 years or older (1 - 1-dose 75+ series) 07/23/2071 Hepatitis B Vaccines Completed 04/19/1997, 1996, 1996 HIB Vaccines Completed 10/10/1997, 1202/1996, 1996, Additional history exists IPV Vaccines Completed [...] Years) and At-Risk Patients (6 to 49) Years Aged Out No longer eligible based on [...] Insurance [place] ST[place] AD[place] HSN PARTIAL [facility] STAND ADULT
[2024-11-03 08:45] LABS: HBS Num1 0.00 mIU/mL (0-7.99); HBsAGNum1 0.43 S/CO (0.00-0.99); HIV Num 1 0.06 S/CO (0.00-0.99); Hepatitis B Surface Antigen Negative (Negative); ~HepC Num1 0.10 S/CO (0.00-0.79); ~Hepatitis B Surface Antibody NONREACTIVE (Nonreactive); ~Hepatitis C Antibody Nonreactive (Nonreactive)
[2024-11-07 15:08] LABS: VITAMIN D (1,25 OH) D3 33 pg/mL; Vit D (1,25-Dihydroxy) Total 33 pg/mL (18-72); Vitamin D (1,25 OH) D2 <8 pg/mL
== END 2024-11-02 15:18 | disposition home or self-care (01) ==
LOC: HO.HKASLDS 15:17
PROVIDERS: PCP Student in an Organized Health Care Education/Training Program; Visit Provider Student in an Organized Health Care Education/Training Program
DX: I42.9 Cardiomyopathy, unspecified (principal); I50.9 Heart failure, unspecified; Z76.89 Persons encountering health services in other specified circumstances; Z01.89 Encounter for other specified special examinations; Z13.31 Encounter for screening for depression; Z13.1 Encounter for screening for diabetes mellitus; Z13.220 Encounter for screening for lipoid disorders; I1A.0 Resistant hypertension; Z71.9 Counseling, unspecified; E66.01 Morbid (severe) obesity due to excess calories; M54.9 Dorsalgia, unspecified; Z68.42 Body mass index [BMI] 45.0-49.9, adult
CPT/HCPCS: 36415; 80053; 80061; 82652; 83036; 84443; 85025; 86706; 86803; 87340; 87389; 96127

== ENCOUNTER 2024-11-16 13:00 | Outpatient (AMB) | payer BC, SELFPAY ==
--- OUTSIDE RECORDS SUMMARY | 2023-11-24 05:00 | XMS_ITS ---
Author Organization [facility] [address] Address [address] [place] [address] Care Team Providers Care Dental Mechanic Name Role Phone AJIT ERVIN Unavailable [phone] Medications Medication SIG (Take, Route, Frequency, Duration) [...] Status Risk Notes Problem Adult health examination ([id number]) Encounter for general adult medical examination without abnormal findings (Z00.00) Active confirmed Encounters Encounter Location Date Provider Diagnosis [facility] [address] [place] [phone] 11/24/2023 AJIT ERVIN Hypertension, unspecified type I10 [...] currently following with Juanita Jo MD with [facility]. Taking furosemide 40 mg daily, [...] #Kidney dysfunction: 1 prior note obtained from [facility] and reviewed. Per this documentation the patient [...] reviewed. Dictation completed with the use of inDplay voice recognition software, prone to medical misidentifications [...] currently following with Juanita Jo MD with [facility]. Taking furosemide 40 mg daily, carvedilol 25 [...] #Kidney dysfunction: 1 prior note obtained from [facility] and reviewed. Per this documentation [...] reviewed. Dictation completed with the use of [employer] voice recognition software, prone to medical misidentifications [...] currently following with Juanita Jo MD with [facility]. Taking furosemide 40 mg daily, [...] #Kidney dysfunction: 1 prior note obtained from [facility] and reviewed. Per this documentation [...] reviewed. Dictation completed with the use of [employer] voice recognition software, prone to medical misidentifications and grammatical errors. All errors are unintentional. Although the practitioner does try to identify and correct errors, some may be present. Please do not hesitate to contact the practitioner for clarification. Plan Of Treatment No Information Progress Notes * Roberto TRIVEDIDOB:1995 ( 29 yo M)Acc No.[id number]:11/24/2023 CPE Patient: Roberto MCALLISTER Provider: Wililam ERVIN PA-C :1995 A ge:28 Y S ex:Male Date:11/24/2023 Address:[address] [place], [place] [phone] Subjective: * Chief Complaints: * * HPI: [...] bilateral upper and lower extremities with flexion/extension. Starting Gate Driver strength 5/5. Sensation intact. Neuro: CN II-XII [...] currently following with Juanita Jo MD with [facility]. Taking furosemide 40 mg daily, [...] #Kidney dysfunction: 1 prior note obtained from [facility] and reviewed. Per this documentation [...] reviewed. Dictation completed with the use of [employer] voice recognition software, prone to medical misidentifications and grammatical errors. All errors are unintentional. Although the practitioner does try to identify and correct errors, some may be present. Please do not hesitate to contact the practitioner for clarification. Plan: * Treatment: * Images: Billing Information: * Visit Code: * Procedure Codes: Care Plan Details* * Electronic signature of AGUSTIN ERVIN PA-C on 11/16/2024 at 05:45 PM EDT Sign off status: Pending * Provider: William ERVIN PA-C Date: Generated for Neha abraham/Micaela/Lynetteitting on: 0 11/16/2024 05:45 PM EDT History and Physical Notes * [...] bilateral upper and lower extremities with flexion/extension. Starting Gate Driver strength 5/5. Sensation intact. Neuro: CN II-XII grossly intact. Steady gait with non-assisted ambulation observed. Psych: Stable mood and affect.
--- OUTSIDE RECORDS SUMMARY | 2023-12-09 06:30 | XMS_ITS ---
Author Organization [facility] [address] Address [address] [place] [address] Care Team Providers Care Sewing Machine Mechanic Name Role Phone AJIT ERVIN Unavailable [phone] Encounters Encounter Location Date Provider Diagnosis [facility] [address] [address] 12/09/2023 AJIT ERVIN Plan Of Treatment No Information Progress Notes * Roberto ZURITADOB:1995 ( 29 yo M)Acc No.[id number]:12/09/2023 CPE Patient: Roberto MCALLISTER Provider: William ERVIN PA-C :1995 A ge:28 Y S ex:Male Date:12/09/2023 Address:[address] [place], [place] [phone] Subjective: * Chief Complaints: * * Medical History: Objective: * Vitals: Assessment: Plan: * Treatment: * Images: Billing Information: * Visit Code: * Procedure Codes: Care Plan Details* * Electronic signature of AGUSTIN ERVIN PA-C on 11/16/2024 at 05:45 PM EDT Sign off status: Pending * Provider: William ERVIN PA-C Date: Generated for Neha abraham/Micaela/Lynteteitting on: 0 11/16/2024 05:45 PM EDT
--- OUTSIDE RECORDS SUMMARY | 2024-01-03 05:15 | XMS_ITS ---
Author Organization [facility] [address] Address [address] [place] [address] Care Team Providers Care Supervisor Toy Parts Former Name Role Phone AJIT ERVIN Unavailable [phone] Encounters Encounter Location Date Provider Diagnosis [facility] [address] [address] 01/03/2024 AJIT ERVIN Plan Of Treatment No Information Progress Notes * Roberto TRIVEDIDOB:1995 ( 29 yo M)Acc No.[id number]:01/03/2024 CPE Patient: Roberto MCALLISTER Provider: William ERVIN PA-C :1995 A ge:28 Y S ex:Male Date:01/03/2024 Address:[address] [place], [place] [phone] Subjective: * Chief Complaints: * * Medical History: Objective: * Vitals: Assessment: Plan: * Treatment: * Images: Billing Information: * Visit Code: * Procedure Codes: Care Plan Details* * Electronic signature of AGUSTIN ERVIN PA-C on 11/16/2024 at 05:46 PM EDT Sign off status: Pending * Provider: William ERVIN PA-C Date: 03/04/2023 Generated for Neha abraham/Micaela/Lynetteitting on: 0 11/16/2024 05:46 PM EDT
--- OUTSIDE RECORDS SUMMARY | 2024-02-04 05:15 | XMS_ITS ---
Author Organization [facility] [address] Address [address] [place] [address] Care Team Providers Care Shipfitter Apprentice Name Role Phone AJIT ERVIN Unavailable [phone] Medications Medication SIG (Take, Route, Frequency, Duration) Notes Start Date End Date Status Furosemide 40 MG 1 tablet Orally Once a day Active Carvedilol 25 MG 1 tablet with food O rally Twice a day Active Losartan Potassium 25 MG 1 tablet Orally Once a day Active Encounters Encounter Location Date Provider Diagnosis [facility] [address] [address] 02/04/2024 AJIT ERVIN Plan Of Treatment No Information Progress Notes * Roberto ZURITADOB:1995 ( 29 yo M)Acc No.[id number]:02/04/2024 CPE Patient: Roberto MCALILSTER Provider: William ERVIN PA-C :1995 A ge:28 Y S ex:Male Date:02/04/2024 Address:[address] [place], [place] [phone] Subjective: * Chief Complaints: * * Medical [...] Information: * Visit Code: * Procedure Codes: 32632 NO SHOW OFFICE VISIT. Care Plan Details* * Electronic signature of AGUSTIN ERVIN PA-C on 11/16/2024 at 05:45 PM EDT Sign off status: Pending * Provider: William ERVIN PA-C Date: 1 04/06/2023 Generated for Neha abraham/Micaela/Luis on: 0 11/16/2024 05:45 PM EDT
--- OUTSIDE RECORDS SUMMARY | 2024-03-02 06:45 | XMS_ITS ---
Author Organization [facility] [address] Address [address] [place] [address] Care Team Providers Care Sample Clerk Name Role Phone AJIT ERVIN Unavailable [phone] Encounters Encounter Location Date Provider Diagnosis [facility] [address] [address] 03/02/2024 AJIT ERVIN Plan Of Treatment No Information Progress Notes * Roberto TRIVEDIDOB:1995 ( 29 yo M)Acc No.[id number]:03/02/2024 CPE Patient: Roberto MCALLISTER Provider: William ERVIN PA-C :1995 A ge:28 Y S ex:Male Date:03/02/2024 Address:[address] [place], [place] [phone] Subjective: * Chief Complaints: * * Medical History: Objective: * Vitals: Assessment: Plan: * Treatment: * Images: Billing Information: * Visit Code: * Procedure Codes: Care Plan Details* * Electronic signature of AGUSTIN ERVIN PA-C on 11/16/2024 at 05:46 PM EDT Sign off status: Pending * Provider: William ERVIN PA-C Date: 0 03/02/2024 Generated for Neha abraham/Micaela/Lynetteitting on: 0 11/16/2024 05:46 PM EDT
--- NOTE | 2024-11-16 13:04 | A.OFFPC_ITS ---
Vital Signs 11/16/24 13:06 Height 6 ft 1.5 in Weight 372 lb 6 oz BMI 48.5 BP 130/100 H Blood Pressure Location Lt brachial Position Sitting Respiration 16 Pulse 90 Pulse Source Pulse Oximeter Temp 98.7 F Temp Source Oral Pulse Oximetry (%) 99 Oxygen Delivery Method Room Air Intake Visit Reasons: 2 week follow up Intake Note: pr here to establish care, and also for high BP. Beader Required: No Accompanied by: Self / Same As Patient Allergies No Known Allergies Allergy (Verified 11/16/24 13:04) Tobacco use date assessed: 11/02/24 Dental Screening Dental Screen Date: 11/02/24 Did you have a dental visit in the last 12 months?: Yes Did you have a dental problem in the last 6 months where you did not have access to dental care?: No Was dental information given to patient?: Patient has dentist HPI HPI Comments History of Present Illness Details History of Present Illness The patient is a 29-year-old male presenting for follow-up on lab results and management of chronic conditions. Iron deficiency anemia: - Low hematocrit, MCV, and MCH suggest i kris deficiency anemia; no prior history of anemia reported. Prediabetes: - Hemoglobin A1c is 5.9%, indicating pre diabetes; dietary monitoring advised to prevent diabetes progression. Elevated liver enzymes: - Elevated AST and ALT levels suggest in creased liver workload, possibly due to hyperlipidemia. Hyperlipidemia: - Elevated triglycerides, total choleste rol, and LDL with low HDL; advised dietary modification and scouring machine operator follow-up. Essential hypertension: - Blood pressure improved to 130/100 mmH g after resuming medication; previous reading was 144/122 mmHg. 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 - Advised to engage in 30 minutes of mod erate-intensity exercise daily. Physical Exam General: Well-appearing, in no acute distress. Vital signs: Blood pressure is 130/100, improved from previous 144/122. HEENT: Normocephalic, atraumatic. PERRLA, EOMI. Conjunctiva clear, sclera anicteric. Oropharynx clear, mucous membranes moist. TMs intact bilaterally. Neck: Supple, no lymphadenopathy, no thyromegaly, no JVD or carotid bruits. Cardiovascular: RRR, normal S1/S2, no murmurs, rubs, or gallops. Peripheral pulses 2+ and symmetric. No edema. Respiratory: Lungs clear to auscultation bilaterally, no wheezes, rales, or rhonchi. Normal effort. Abdomen: Soft, non-tender, non-distended. Normoactive bowel sounds. No hepatosplenomegaly, no masses. MSK: Full range of motion, no joint swelling or deformity. Normal gait. Skin: Warm, dry, intact. No rashes, lesions, or pallor. Neuro: Alert and oriented x3. Cranial nerves II-XII intact. Strength 5/5 throughout. Sensation intact. Reflexes 2+ symmetric. Normal coordination and gait. Psych: Appropriate mood and affect. Normal judgment and insight. Plan 1. Iron Deficiency Anemia - Supplement with iron and vitamin C for three months, then re-evaluate. 2. Prediabetes - Implement dietary modifications to red uce sugar intake and prevent diabetes progression. 3. Elevated Liver Enzymes - Conduct liver ultrasound to assess for fatty liver disease. 4. Hyperlipidemia - Follow dietary changes and consult wit h a scouring machine operator to manage lipid levels. 5. Essential Hypertension - Maintain current antihypertensive medi cation; blood pressure improved to 130/100 mmHg. Discussion Notes I discussed with the patient the findings of iron deficiency anemia and the plan to supplement with iron and vitamin C. We reviewed the prediabetes diagnosis and the importance of dietary modifications to prevent progression to diabetes. I explained the elevated liver enzymes and the need for a liver ultrasound to assess for fatty liver disease. We also discussed the hyperlipidemia and the role of dietary changes and scouring machine operator consultation in managing lipid levels. The patient was advised to continue antihypertensive medication, which has improved his blood pressure. Patient was informed and verbally consented to the use of an ambient scribe for clinic note documentation during this visit. Patient Instructions - Take iron supplements with vitamin C f or three months. - Follow dietary recommendations to redu ce sugar and fat intake. - [facility] - Continue current blood pressure medica tion. - Engage in 30 minutes of moderate-inten sity exercise daily. [facility] Medical History Back pain Pneumonia No known health problems Family History Father No problems noted. Mother No problems noted. Social History Housing: Apartment Do you presently have visiting nurse or other home services: No Alcohol intake: current Alcohol intake frequency: holidays/special occasions only Patient Tobacco Use Status: Never used Tobacco Second Hand Smoke Exposure: No service: No Current occupational status: employed Cognitive needs: No Hearing needs: No Vision needs: No Questionnaire PHQ-9 Over the last 2 weeks, how often have you been bothered by any of the following problems? 1. Little interest or pleasure in doing things: not at all 2. Feeling down, depressed, or hopeless: not at all 3. Trouble falling or staying asleep, or sleeping too much: not at all 4. Feeling tired or having little energy: not at all 5. Poor appetite or overeating: not at all 6. Feeling bad about yourself - or that you are a failure or have let yourself or your family down: not at all 7. Trouble concentrating on things, such as reading the newspaper or watching television: not at all 8. Moving or speaking so slowly that other people could have noticed. Or the opposite - being so fidgety or restless that you have been moving around a lot more than usual: not at all 9. Thoughts that you would be better off or of hurting yourself in some way: not at all Total score: 0 Source: Developed by Drs. Nathan Garcia, Angie Gaston, Vj Plaza and colleagues, with an educational heber from [employer]. Thrive Questionnaire Date Thrive assessed: 11/02/24 I am a: Patient What is your living situation today?: I have a steady place to live Within the past 12 months, did the food you bought not last and you didn't have the money to get more?: Never true Within the past 12 months, did you worry whether your food would run out before you got money to buy more?: Never true Do you have trouble paying for medicines?: No Do you have trouble getting transportation to medical appointments?: No Do you have trouble paying your heating and electricity bill?: No Do you have trouble taking care of your child, family member or friend?: No Are you currently unemployed and looking for a job?: No Are you interested in more education?: No Please select the resources that you would like help with: None Currently or been in a relationship where the following occur: No concerns reported THRIVE Score: 0 AUDIT C Alcohol Use Questionnaire (AUDIT-C) 1. How often do you have a drink containing alcohol?: Monthly or less 2. How many drinks containing alcohol do you have on a typical day when you are drinking?: 1 or 2 3. How often do you have six or more drinks on one occasion?: Never Total Score: 1 VANCE-7 AMB Questionnaire VANCE-7 Date VANCE - 7 assessed: 11/02/24 Feeling nervous, anxious, or on edge: 0 = Not at all Not being able to stop or control worryin = Not at all Worrying too much about different things: 0 = Not at all Trouble relaxin = Not at all Being so restless that it is hard to sit still: 0 = Not at all Becoming easily annoyed or irritable: 0 = Not at all Feeling afraid as if something awful might happen: 0 = Not at all Total VANCE-7 score (0-4 normal; 5-9 mild; 10-14 moderate; 15-21 severe): 0 Source: Developed by Drs. Nathan Garcia, Angie Gaston, Vj Plaza and colleagues, with an educational heber from [employer]. Physical exam (Primary Care) Vital Signs: Last Vital Signs Temp 98.7 F 11/16/24 13:06 Pulse 90 11/16/24 13:06 Resp 16 11/16/24 13:06 BP 130/100 H 11/16/24 13:06 Pulse Ox 99 11/16/24 13:06 Oxygen Delivery Method Room Air 11/16/24 13:06 BMI result Body Mass Index 48.5 Tobacco/Smoking Status: Tobacco use Status Tobacco use date assessed 11/02/24 11/16/24 13:06 Patient Tobacco Use Status Never used Tobacco 11/16/24 13:06 PHQ-9: PHQ-9 Score PHQ-9: Total score 0 11/16/24 13:06 Thrive Assessment: Date of Thrive Assessment Date Thrive assessed 11/02/24 11/16/24 13:06 Currently or been in a relationship where the following occur: No concerns reported Coding Level of Care Code Est Pt Level 3 (44475) Diagnoses Encounter to discuss test results Z71.2 Low mean corpuscular volume (MCV) R71.8 Elevated liver enzymes R74.8 Dyslipidemia E78.5 Elevated LDL cholesterol level E78.00 Low HDL (under 40) E78.6 HTN (hypertension) I10 Hypertension type: unspecified Morbid obesity E66.01 Assessment & Plan Assessment & Plan (1) Encounter to discuss test results: Code(s): Z71.2 - Person consulting for explanation of examination or test findings (2) Low mean corpuscular volume (MCV): Code(s): R71.8 - Other abnormality of red blood cells (3) Elevated liver enzymes: Code(s): R74.8 - Abnormal levels of other serum enzymes (4) Dyslipidemia: Code(s): E78.5 - Hyperlipidemia, unspecified (5) Elevated LDL cholesterol level: Code(s): E78.00 - Pure hypercholesterolemia, unspecified (6) Low HDL (under 40): Code(s): E78.6 - Lipoprotein deficiency (7) HTN (hypertension): Code(s): I10 - Essential (primary) hypertension Category: Medical Qualifiers: Hypertension type: unspecified Qualified Code(s): I10 - Essential (primary) hypertension (8) Morbid obesity: Code(s): E66.01 - Morbid (severe) obesity due to excess calories Plan Orders: Orders US abdomen limited Today E66.01 - Morbid (severe) obesity due to excess calories, E78.5 - Hyperlipidemia, unspecified, R74.8 - Abnormal levels of other serum enzymes Medications: New ferrous sulfate (iron) 325 mg PO DAILY 90 tabs 0RF ascorbic acid (vitamin C) 500 mg PO DAILY 90 tabs 0RF
[2024-11-16 13:06] VITALS: BP 130/100; PULSE 90; RESP 16; TEMP 37.1; O2SAT 99; BMI 48.5
--- OUTSIDE RECORDS SUMMARY | 2024-11-16 17:45 | XMS_ITS | Encounter Summary ---
Author Organization [employer] Address [address] [place] [address] Care Team Providers Care Manager Payment Name Role Phone Fausto Kirkpatrick MD Primary Care Prov ider Reason for Visit * Reason Onset Date Comments Appointment 03/27/2022 Patient called i n inquiring about oral surgery for wisdom tooth extraction. Patient was informed that office will reach out to him for scheduling based on wait list DR Encounter Details Date Type Department Care Team ([facility] st Contact Info) Description 03/27/2022 Telephone [facility]ULT D[facility] [address] [place], [place] [phone] Topher Daly, DMD [address] [place], [place] [phone] Appointment (Patient called in inquiring about oral [...] filedocumented in this encounter Care Teams Manager Payment Relationship Specialty Start Date End Date Fausto Kirkpatrick MD [address] [place] [id number] PCP - General Internal Medicine 12/02/18 05/03/23 documented as of this encounter
--- OUTSIDE RECORDS SUMMARY | 2024-11-16 17:46 | XMS_ITS | Patient Health Record ---
Author Organization [facility] [address] Address [address] [place] [address] Care Team Providers Care Parcel Post Delivery Name Role Phone AJIT ERVIN Unavailable [phone] Reason For Referral No Information Medications Medication [...] Status Risk Notes Problem Vitamin D deficiency (18833836) Vitamin D deficiency, unspecified (E55.9) Active confirmed Problem Adult health examination (559796896) Encounter for general adult medical examination without abnormal findings (Z00.00) Active confirmed Problem Essential hypertension (89145420) Hypertension, unspecified type (I10) Active confirmed Problem Essential hypertension (66094651) Hypertension, essential (I10) Active confirmed Problem Disorder of kidney and/or ureter (390977918) Kidney dysfunction (N28.9) Active confirmed Encounters Encounter Location Date Provider Diagnosis [facility] [address] [address] 11/24/2023 AJIT ERVIN [facility] [address] [address] 11/24/2023 AJIT ERVIN [facility] [address] [address] 11/24/2023 AJIT ERVIN [facility] [address] [address] 11/24/2023 AJIT ERVIN [facility] [address] /17/2024 AJIT FARIASHAM [facility] [address] [place] [address] 12/09/2023 AJIT ERVIN [facility] [address] [place] [address] 02/03/2024 AJIT ERVIN [facility] [address] [place] [address] 02/03/2024 AJIT ERVIN Assessments Encounter Date Diagnosis (ICD Code) Assessment Notes Treatment Notes Treatment Clinical Notes Section Notes 11/24/2023 Roberto is a 28-year-old male with [...] reviewed. Dictation completed with the use of [employer] voice recognition software, prone to medical misidentifications [...] Insured Coverage Start Date Coverage End Date [facility] [address] [place] [address] [id number] Roberto Trivedi Self - patient is the insured Medical (General) History Medical History History ICD Code Hypertension, essential I10
--- OUTSIDE RECORDS SUMMARY | 2024-11-16 17:46 | XMS_ITS | Clinical Summary ---
Author Organization [employer] Address [address] [place] [address] [address] [place] [address] Care Team Providers Care Outbound Sales Professional Name Role Phone Unavailable Primary Care Provider [...] Insurance [place] ST[place] AD[place] HSN [facility]ULT
== END 2024-11-16 13:27 | disposition home or self-care (01) ==
LOC: HO.HMCFMS 13:01
PROVIDERS: Visit Provider Student in an Organized Health Care Education/Training Program
DX: R71.8 Other abnormality of red blood cells (principal); R74.8 Abnormal levels of other serum enzymes; E66.01 Morbid (severe) obesity due to excess calories; E78.5 Hyperlipidemia, unspecified; E78.00 Pure hypercholesterolemia, unspecified; E78.6 Lipoprotein deficiency; I10 Essential (primary) hypertension

== ENCOUNTER 2024-12-14 17:00 | Emergency (ER) | payer BC, SELFPAY ==
--- OUTSIDE RECORDS SUMMARY | 2023-11-24 05:00 | XMS_ITS ---
Author Organization [facility] [address] Address [address] [place] [address] Care Team Providers Care Smokehouse Operator Name Role Phone AJIT ERVIN Unavailable [phone] Medications Medication SIG (Take, Route, Frequency, Duration) [...] Status Risk Notes Problem Adult health examination (454774705) Encounter for general adult medical examination without abnormal findings (Z00.00) Active confirmed Encounters Encounter Location Date Provider Diagnosis [facility] [address] [place] [phone] 11/24/2023 AJIT ERVIN Hypertension, unspecified type I10 [...] currently following with Juanita Jo MD with [facility]. Taking furosemide 40 mg daily, [...] #Kidney dysfunction: 1 prior note obtained from [facility] and reviewed. Per this documentation the patient [...] reviewed. Dictation completed with the use of Agrar33 voice recognition software, prone to medical misidentifications [...] currently following with Juanita Jo MD with [facility]. Taking furosemide 40 mg daily, carvedilol 25 [...] #Kidney dysfunction: 1 prior note obtained from [facility] and reviewed. Per this documentation [...] reviewed. Dictation completed with the use of Agr[employer] voice recognition software, prone to medical misidentifications [...] currently following with Juanita Jo MD with [facility]. Taking furosemide 40 mg daily, [...] #Kidney dysfunction: 1 prior note obtained from [facility] and reviewed. Per this documentation [...] reviewed. Dictation completed with the use of [employer]gr[employer] voice recognition software, prone to medical misidentifications and grammatical errors. All errors are unintentional. Although the practitioner does try to identify and correct errors, some may be present. Please do not hesitate to contact the practitioner for clarification. Plan Of Treatment No Information Progress Notes * Roberto TRIVEDIDOB:1995 ( 29 yo M)Acc No.[id number]:11/24/2023 CPE Patient: Roberto MCALLISTER Provider: William ERVIN PA-C :1995 A ge:28 Y S ex:Male Date:11/24/2023 Address:[address] [place], [place] [phone] Subjective: * Chief Complaints: * * HPI: [...] bilateral upper and lower extremities with flexion/extension. Printer'S Assistant strength 5/5. Sensation intact. Neuro: CN II-XII [...] currently following with Juanita Jo MD with [facility] Taking furosemide 40 mg daily, [...] #Kidney dysfunction: 1 prior note obtained from [facility] and reviewed. Per this documentation [...] reviewed. Dictation completed with the use of [employer]grar33 voice recognition software, prone to medical misidentifications and grammatical errors. All errors are unintentional. Although the practitioner does try to identify and correct errors, some may be present. Please do not hesitate to contact the practitioner for clarification. Plan: * Treatment: * Images: Billing Information: * Visit Code: * Procedure Codes: Care Plan Details* * Electronic signature of AGUSTIN ERVIN PA-C on 12/14/2024 at 07:37 PM EDT Sign off status: Pending * Provider: William ERVIN PA-C Date: Generated for Neha abraham/Micaela/Luis on: 07:37 PM EDT History and Physical Notes * HPI (History [...] bilateral upper and lower extremities with flexion/extension. Printer'S Assistant strength 5/5. Sensation intact. Neuro: CN II-XII grossly intact. Steady gait with non-assisted ambulation observed. Psych: Stable mood and affect.
--- OUTSIDE RECORDS SUMMARY | 2023-12-09 06:30 | XMS_ITS ---
Author Organization [facility] [address] Address [address] [place] [address] Care Team Providers Care Shell Reprint Operator Name Role Phone AJIT ERVIN Unavailable [phone] Encounters Encounter Location Date Provider Diagnosis [facility] [address] [address] 12/09/2023 AJIT ERVIN Plan Of Treatment No Information Progress Notes * Roberto TRIVEDIDOB:1995 ( 29 yo M)Acc No.[id number]:12/09/2023 CPE Patient: Roberto MCALLISTER Provider: William ERVIN PA-C :1995 A ge:28 Y S ex:Male Date:12/09/2023 Address:[address] [place], [place] [phone] Subjective: * Chief Complaints: * * Medical [...]
--- OUTSIDE RECORDS SUMMARY | 2024-01-03 05:15 | XMS_ITS ---
Author Organization [facility] [address] Address [address] [place] [address] Care Team Providers Care Core Composer Machine Tender Name Role Phone AJIT ERIVN Unavailable [phone] Encounters Encounter Location Date Provider Diagnosis [facility] [address] [address] 01/03/2024 AJIT ERVIN Plan Of Treatment No Information Progress Notes * Roberto TRIVEDIDOB:1995 ( 29 yo M)Acc No.[id number]:01/03/2024 CPE Patient: Roberto MCALLISTER Provider: William ERVIN PA-C :1995 A ge:28 Y S ex:Male Date:01/03/2024 Address:[address] [place], [place] [phone] Subjective: * Chief Complaints: * * Medical History: Objective: * Vitals: Assessment: Plan: * Treatment: * Images: Billing Information: * Visit Code: * Procedure Codes: Care Plan Details* * Electronic signature of AGUSTIN ERVIN PA-C on 12/14/2024 at 07:38 PM EDT Sign off status: Pending * Provider: William ERVIN PA-C Date: 03/04/2023 Generated for Neha abraham/Micaela/Luis on: 07:38 PM EDT
--- OUTSIDE RECORDS SUMMARY | 2024-02-04 05:15 | XMS_ITS ---
Author Organization [facility] [address] Address [address] [place] [address] Care Team Providers Care Housekeeper/Custodian/Laundry Worker Name Role Phone AJIT ERVIN Unavailable [phone] Medications Medication SIG (Take, Route, Frequency, Duration) Notes Start Date End Date Status Furosemide 40 MG 1 tablet Orally Once a day Active Carvedilol 25 MG 1 tablet with food O rally Twice a day Active Losartan Potassium 25 MG 1 tablet Orally Once a day Active Encounters Encounter Location Date Provider Diagnosis [facility] [address] [address] 02/04/2024 AIJT ERVIN Plan Of Treatment No Information Progress Notes * Roberto ZURITADOB:1995 ( 29 yo M)Acc No.[id number]:02/04/2024 CPE Patient: Roberto MCALLISTER Provider: William ERVIN PA-C :1995 A ge:28 Y S ex:Male Date:02/04/2024 Address:[address] [place], [place] [phone] Subjective: * Chief Complaints: * * Medical [...] Information: * Visit Code: * Procedure Codes: 19352 NO SHOW OFFICE VISIT. Care Plan Details* * Electronic signature of AGUSTIN ERVIN PA-C on 12/14/2024 at 07:37 PM EDT Sign off status: Pending * Provider: William ERVIN PA-C Date: 1 04/06/2023 Generated for Neha abraham/Micaela/Luis on: 1 07:37 PM EDT
--- OUTSIDE RECORDS SUMMARY | 2024-03-02 06:45 | XMS_ITS ---
Author Organization [facility] [address] Address [address] [place] [address] Care Team Providers Care Compressor Mechanic Bus Name Role Phone AJIT ERVIN Unavailable [phone] Encounters Encounter Location Date Provider Diagnosis [facility] [address] [address] 03/02/2024 AJIT ERVIN Plan Of Treatment No Information Progress Notes * Roberto TRIVEDIDOB:1995 ( 29 yo M)Acc No.[id number]:03/02/2024 CPE Patient: Roberto MCALLISTER Provider: William ERVIN PA-C :1995 A ge:28 Y S ex:Male Date:03/02/2024 Address:[address] [place], [place] [phone] Subjective: * Chief Complaints: * * Medical History: Objective: * Vitals: Assessment: Plan: * Treatment: * Images: Billing Information: * Visit Code: * Procedure Codes: Care Plan Details* * Electronic signature of AGUSTIN ERVIN PA-C on 12/14/2024 at 07:38 PM EDT Sign off status: Pending * Provider: William ERVIN PA-C Date: 0 03/02/2024 Generated for Neha abraham/Micaela/Luis on: 07:38 PM EDT
[2024-12-14] VITALS (9 sets, daily range): BP systolic 157–200; BP diastolic 88–133; PULSE 80–100; RESP 15–20; TEMP 36.2–37.1; O2SAT 94–99; BMI 48.2
--- NOTE | ~2024-12-14 | XR_ITS ---
CLINICAL HISTORY: SOB 2 view chest x-ray Comparison: CR/SR - XR CHEST 2 VIEWS - 05/21/23 10:00 EDT Findings: No consolidation, pleural effusion or pneumothorax. Mild bilateral perihilar opacities. Cardiac silhouette is enlarged. No acute fracture. IMPRESSION: 1. Mild cardiomegaly. 2. Bilateral perihilar opacities secondary to pneumonitis or fluid overload. This document has been electronically signed by: Mine Calderón DO on 12/14/2024 17:45:40
--- NOTE | 2024-12-14 17:09 | ED.GENADULT ---
HPI - General Adult General Chief complaint: Recheck/Abnormal Lab/Rx Stated complaint: high blood pressure sent from urgent care Time Seen by Provider: 12/14/24 17:54 Source: patient Limitations: no limitations History of Present Illness ED Provider: Cori Vo PA-C HPI narrative: 29-year-old male with a history of asthma, morbid obesity, cardiomyopathy, systolic heart failure with ejection fraction of 15-20% on echo April of 2023, poorly controlled hypertension, who presents with cough cold symptoms x1 week. Associated wheezing, denies fever. Patient was seen at urgent Care today, was sent to the emergency room for further assessment after found to be hypertensive. Patient admits he has been off his blood pressure medication for a week, he thought he should take it so it would not interact with cough and cold remedies. Denies chest pain, shortness of breath. The patient does not use tobacco, he smokes marijuana. Related Data Previous Rx's ?Medication ?Instructions ?Recorded amlodipine 10 mg-valsartan 320 mg 1 tab PO DAILY #90 tabs 11/14/24 tablet (Exforge) carvedilol 6.25 mg tablet 6.25 mg PO BID #180 tabs 11/14/24 spironolactone 25 1 tab PO DAILY #90 tabs 11/14/24 mg-hydrochlorothiazide 25 mg tablet ascorbic acid (vitamin C) 500 mg 500 mg PO DAILY #90 tabs 11/16/24 tablet ferrous sulfate 325 mg (65 mg 325 mg PO DAILY #90 tabs 11/16/24 iron) tablet (iron) azithromycin 250 mg tablet 250 mg PO DAILY 4 days #4 tabs 12/14/24 codeine 10 mg-guaifenesin 100 mg/5 10 ml PO Q4-6H PRN cough #118 mL 12/14/24 mL oral liquid (Guaifenesin AC) prednisone 20 mg tablet 40 mg (2 x 20 mg) PO DAILY #8 tabs 12/14/24 Allergies Allergy/AdvReac Type Severity Reaction Status Date / Time No Known Allergies Allergy Verified 12/18/24 11:50 Review of Systems Review of Systems: Yes all other systems are reviewed and are negative Constitutional: Constitutional: Denies fatigue and Denies fever(s) Cardiovascular: Cardiovascular: Denies chest pain and Denies dyspnea Respiratory: Respiratory: Denies chest congestion, Reports cough, Denies dyspnea and Reports wheezing Endocrine: Endocrine: Denies fatigue Allergic/Immunologic: Allergic/Immunologic: Reports wheezing [facility] Past Medical History Attestation statement: The following information was validated with the patient. Medical History Back pain Pneumonia No known health problems Family History Family History Father No problems noted. Mother No problems noted. Social History Social History Housing: Apartment Do you presently have visiting nurse or other home services: No Alcohol intake: current Alcohol intake frequency: holidays/special occasions only Patient Tobacco Use Status: Never used Tobacco Second Hand Smoke Exposure: No service: No Current occupational status: employed Cognitive needs: No Hearing needs: No Vision needs: No Physical Exam ED Vital Signs: Vital Signs - 24 hr 12/14/24 17:05 12/14/24 17:34 12/14/24 18:41 Temperature 97.2 F 98.7 F Pulse Rate 100 95 95 Respiratory Rate 20 15 Blood Pressure 200/133 H 168/97 H 200/104 H Pulse Oximetry 98 94 Oxygen Delivery Method Room Air Room Air Room Air 12/14/24 19:05 12/14/24 19:05 12/14/24 19:05 Temperature Pulse Rate Respiratory Rate Blood Pressure 180/88 H 180/88 H 180/88 H Pulse Oximetry Oxygen Delivery Method 12/14/24 19:07 12/14/24 20:15 12/14/24 20:16 Temperature 98.6 F Pulse Rate 80 85 Respiratory Rate 15 Blood Pressure 180/88 H 170/105 H 170/105 H Pulse Oximetry 96 Oxygen Delivery Method Room Air 12/14/24 20:16 12/14/24 20:53 Temperature Pulse Rate 83 Respiratory Rate Blood Pressure 170/105 H 170/93 H Pulse Oximetry Oxygen Delivery Method BMI result Body Mass Index 48.2 Const Other: Alert Orientation/consciousness: patient oriented x3 Resp Other: Lungs clear no wheezing, bronchospasm type cough Effort & Inspection: normal respiratory effort Cardio Other: Normal peripheral perfusion Skin Other: Warm dry no rash Neuro General: patient oriented x3, gait normal, no focal motor deficits and CN's II-XI intact bilaterally Psych Other: Cooperative Course Course Course Narrative: This is an RME: Additional HPI, ROS, PE not included below will be deferred to primary provider. RME assessment and note performed by: Alicia Garcia PA-C This is a 29-year-old male, with a past medical history of hypertension, CHF, and cardiomyopathy, who presents emergency department with concerns of hypertension. Patient states that he went to an urgent care this afternoon in his blood pressure was elevated. He states that he has a history of hypertension but has not taken his medications in over 1 week as he was nervous that his cough medicine would interact with the high blood pressure medication that he is on. No vision changes or headache. Of note, patient has significant cardiac history, has not seen a ethnic origins teacher in over a year and a half. Patient hypertensive at 200/133. Plan: Labs, EKG, chest x-ray, further ER evaluation needed. Medications Administered Discontinued Medications Generic Name Dose Route Start Last Admin Trade Name Freq PRN Reason Stop Dose Admin Amlodipine Besylate 10 mg 12/14/24 18:43 12/14/24 19:05 Amlodipine Besylate 10 Mg Tablet PO 12/14/24 18:44 10 mg ONCE ONE Administration Protocol Carvedilol 6.25 mg 12/14/24 18:43 12/14/24 20:16 Carvedilol 6.25 Mg Tablet PO 12/14/24 18:44 6.25 mg ONCE ONE Administration Protocol Hydrochlorothiazide 25 mg 12/14/24 18:43 12/14/24 19:05 Hydrochlorothiazide 25 Mg Tablet PO 12/14/24 18:44 25 mg ONCE ONE Administration Protocol Magnesium Sulfate 2 gm in 50 mls @ 150 mls/hr 12/14/24 18:36 12/14/24 19:09 Magnesium Sulfate/H2o IV 12/14/24 18:55 Infused ONCE ONE Infusion Methylprednisolone Sodium Succinate 60 mg 12/14/24 18:36 12/14/24 18:46 Methylprednisolone Sod Succ 125 Mg/2 Ml Vial IVPUSH 12/14/24 18:37 60 mg ONCE ONE Administration Spironolactone 25 mg 12/14/24 18:43 12/14/24 19:07 Spironolactone 25 Mg Tablet PO 12/14/24 18:44 25 mg ONCE ONE Administration Protocol Valsartan 320 mg 12/14/24 18:43 12/14/24 20:16 Valsartan 320 Mg Tablet PO 12/14/24 18:44 320 mg ONCE ONE Administration Protocol Procedures Procedure Narrative Procedure Narrative: Ultrasound-guided IV 20 gauge 1-3/4 inch IV placed in left upper extremity. Adequate blood return, flushes well secured with Tegaderm. Medical Decision Making Medical Decision Making [facility] Narrative: 29-year-old male with a history of asthma, morbid obesity, cardiomyopathy, systolic heart failure with ejection fraction of 15-20% on echo April of 2023, poorly controlled hypertension, who presents with cough cold symptoms x1 week. Associated wheezing, denies fever. Patient was seen at urgent Care today, was sent to the emergency room for further assessment after found to be hypertensive. Patient admits he has been off his blood pressure medication for a week, he thought he should take it so it would not interact with cough and cold remedies. Denies chest pain, shortness of breath. The patient does not use tobacco, he smokes marijuana. Problem: Poorly controlled blood pressure, known cardiomyopathy with subsequent heart failure, morbid obesity, asthma History: Per patient I have considered the following differential diagnoses: Heart failure exacerbation, ACS, asthma exacerbation, bronchitis, pneumonia, viral syndrome Plan: The patient received an updraft at urgent Care, he was then sent here for further assessment. They did not give him steroid. At this point he is just having bronchospasm. We will be giving Solu-Medrol, 2 g of magnesium. I am ordering all of his blood pressure medication that he has not taken in a week. Given he smokes marijuana, we will cover him for bronchitis with a Z-Andrés. In addition to screening labs, BNP and troponin with a EKG obtained, in addition to a chest x-ray. I have independently reviewed the following tests: Labs: No leukocytosis, not anemic, no electrolyte abnormality, troponin 3.7, BNP 138.6 EKG: Normal sinus rhythm, rate of 92, isolated inverted T-waves lateral leads when compared to prior study, QTC 460, no ectopy CXR: IMPRESSION: 1. Mild cardiomegaly. 2. Bilateral perihilar opacities secondary to pneumonitis or fluid overload. Differential Diagnosis Differential Diagnoses: The differential diagnosis associated with the presentation includes See medical decision-making Admission/Observation Consideration of admission/observation: Escalation of care including admission/observation considered Not applicable Lab Data MDM Lab Attestation statement: I reviewed the patient's lab results. 12/14/24 17:42 12/14/24 18:40 Labs: Lab Results 12/14/24 12/14/24 Range/Units 17:42 18:40 WBC 9.3 (4.8-10.8) X10*3/uL RBC 5.12 (4.60-5.80) X10*6/uL Hgb 13.3 L (14.0-18.0) g/dl Hct 37.7 L (42.0-52.0) % MCV 73.6 L (80.0-98.0) fL MCH 26.0 L (27.0-33.0) pg MCHC 35.3 (31.0-36.0) g/dl RDW 13.2 (11.0-16.0) % Plt Count 221 (160-400) X10*3/uL MPV 11.0 (9.4-12.4) fL Immature Gran % (Auto) 0.2 (0.0-0.4) % Neut % (Auto) 59.1 (45-73) % Lymph % (Auto) 29.2 (20-40) % [place] % (Auto) 7.9 (2-11) % Eos % (Auto) 2.6 (0-4) % Baso % (Auto) 1.0 (0-2) % Lymph # (Auto) 2.7 (1.2-4.9) X10*3/uL [place] # (Auto) 0.7 (0.1-1.2) X10*3/uL Eos # (Auto) 0.2 (0.0-0.4) X10*3/uL Baso # (Auto) 0.1 (0.0-0.2) X10*3/uL Abs Immat Gran (auto) 0.02 (0.00-0.03) X10*3/uL Absolute Neuts (auto) 5.5 (2.0-8.3) x10*3/uL Absolute Nucleated RBC 0.000 (0.0-0.012) X10*3/uL Nucleated RBC % (auto) 0.0 (0.0-0.2) /100WBC Sodium 141 (135-145) mmol/L Potassium 3.3 (3.3-5.1) mmol/L Chloride 107 (96-108) mmol/L Carbon Dioxide 25 (22-29) mmol/L Anion Gap 12 (12-20) BUN 7 L (9-16) mg/dL Creatinine 0.71 (0.5-1.4) mg/dL Estim Creat Clear Calc 250.4 Estimated GFR > 60 Random Glucose 113 (60-115) mg/dL Calcium 8.9 D (8.4-10.2) mg/dL Magnesium 2.3 (1.6-2.6) mg/dL Total Bilirubin 0.7 (0.0-1.0) mg/dL Direct Bilirubin 0.2 (0.0-0.5) mg/dL AST 39 H (5-37) U/L ALT 56 H (0-40) U/L Alkaline Phosphatase 47 (39-117) U/L Troponin I High Sens 3.7 D (<3.5-35.0) ng/L NT-Pro-B Natriuret Pep 138.6 (<300) pg/mL Total Protein 7.3 (6.5-8.0) g/dL Albumin 4.4 (3.5-5.0) g/dL Independent Interpretation I performed an independent interpretation of an: EKG Radiology Impression Discussion of test interpretation with radiology: I have reviewed the radiologist's reading. Discharge Plan Discharge Clinical Impression: Asthma exacerbation, Bronchitis HTN (hypertension) Qualifiers: Hypertension type: unspecified Qualified Code(s): I10 - Essential (primary) hypertension Patient Disposition: Home, Self-Care Instructions: Asthma (ED), Acute Bronchitis (ED), Chronic Hypertension (ED) Additional Instructions: You need to take your blood pressure medication as directed. See home care instructions for your asthma exacerbation. Use the inhaler as needed. Take the steroid as directed you do not need anymore medication until tomorrow. Use the cough syrup as needed at night to help you sleep, it will cause drowsiness, do not drive or operate machinery while taking the cough syrup. We are also covering you for bronchitis, take the Z-Andrés as directed. Follow up with your primary care provider as needed. Prescriptions: New azithromycin 250 mg tablet 250 mg PO DAILY 4 Days Qty: 4 0RF Rx Instructions: start on day 2 of therapy prednisone 20 mg tablet 40 mg PO DAILY Qty: 8 0RF codeine-guaifenesin [Guaifenesin AC] 10-100 mg/5 mL liquid 10 ml PO Q4-6H PRN (Reason: cough) Qty: 118 0RF No Action carvedilol 6.25 mg tablet 6.25 mg PO BID Qty: 180 1RF Protocol: Hold for SBP/HR < HOLD for SBP < : 90 HOLD for HR < : 60 spironolacton-hydrochlorothiaz 25-25 mg tablet 1 tab PO DAILY Qty: 90 1RF amlodipine-valsartan [Exforge] 10-320 mg tablet 1 tab PO DAILY Qty: 90 1RF ascorbic acid (vitamin C) 500 mg tablet 500 mg PO DAILY Qty: 90 0RF ferrous sulfate [iron] 325 mg (65 mg iron) tablet 325 mg PO DAILY Qty: 90 0RF Stand Alone Forms: Work/School Release Interventions: ED Discharge Assessment Last Done: 12/14/24 22:51 Discharge Date/Time: 12/14/24 22:54 Print Language: Indonesian
--- NOTE | 2024-12-14 17:11 | ECG_ITS ---
Test Reason : htn Blood Pressure : */* mmHG Vent. Rate : 92 BPM Atrial Rate : 92 BPM P-R Int : 172 ms QRS Dur : 118 ms QT Int : 372 ms P-R-T Axes : 27 -7 78 degrees QTcB Int : 460 ms Normal sinus rhythm Non-specific intra-ventricular conduction delay T wave abnormality, consider lateral ischemia Prolonged QT Abnormal ECG When compared with ECG of 18-May-2023 08:36, Inverted T waves have replaced nonspecific T wave abnormality in Lateral leads QT has shortened Referred By: Alicia Garcia Electronically Signed By: SABRA BARRETO MD
[2024-12-14 17:47] LABS: MANUAL DIFF FLAG NO
[2024-12-14 17:49] LABS: Hematocrit 37.7 % (42.0-52.0); Hemoglobin 13.3 g/dl (14.0-18.0); Imm Gran Abs Auto 0.02 X10*3/uL (0.00-0.03); Imm Gran Pct Auto 0.2 % (0.0-0.4); Lymphocytes Absolute Auto 2.7 X10*3/uL (1.2-4.9); Mean Corpuscular HGB Conc 35.3 g/dl (31.0-36.0); Mean Corpuscular Hemoglobin 26.0 pg (27.0-33.0); Mean Corpuscular Volume 73.6 fL (80.0-98.0); NRBC Abs Auto 0.000 X10*3/uL (0.0-0.012); NRBC Pct Auto 0.0 /100WBC (0.0-0.2); Platelet Count 221 X10*3/uL (160-400); Red Blood Count 5.12 X10*6/uL (4.60-5.80); White Blood Count 9.3 X10*3/uL (4.8-10.8)
[2024-12-14 18:09] LABS: NT Pro B Type Natriuretic Pept 138.6 pg/mL (<300); Troponin-I High Sensitivity 3.7 ng/L (<3.5-35.0)
[2024-12-14] MEDS: Magnesium Sulfate/H2O 2 GM/50 ML PIGGYBACK IV (18:50)
[2024-12-14 19:01] LABS: Alanine Aminotransferase 56 U/L (0-40); Albumin Level 4.4 g/dL (3.5-5.0); Alkaline Phosphatase 47 U/L (39-117); Anion Gap 12 (12-20); Aspartate Amino Transferase 39 U/L (5-37); Blood Urea Nitrogen 7 mg/dL (9-16); Calcium 8.9 mg/dL (8.4-10.2); Carbon Dioxide 25 mmol/L (22-29); Chloride 107 mmol/L (96-108); Creatinine Clr Calc Pharmacy 250.4; Estimated Glomerular Filt Rate > 60; Magnesium 2.3 mg/dL (1.6-2.6); Potassium 3.3 mmol/L (3.3-5.1); Sodium 141 mmol/L (135-145); Total Protein 7.3 g/dL (6.5-8.0)
--- NOTE | 2024-12-14 19:20 | PC.NURSE ---
Pharmacy contacted for valsartan and coreg doses, still awaiting arrival. PA aware, care ongoing.
--- OUTSIDE RECORDS SUMMARY | 2024-12-14 19:37 | XMS_ITS | Encounter Summary ---
Author Organization [employer] Address [address] [facility] [facility] [address] [facility] [address] [place] [address] Care Team Providers Care Film Processing Supervisor Name Role Phone Fausto Kirkpatrick MD Primary Care Prov ider Reason for Visit * Reason Onset Date Comments Appointment 03/27/2022 Patient called i n inquiring about oral surgery for wisdom tooth extraction. Patient was informed that office will reach out to him for scheduling based on wait list DR Encounter Details Date Type Department Care Team ([facility] st Contact Info) Description 03/27/2022 Telephone [facility] [address] [place], [place] [phone] Topher Daly, DMD [address] [place], [place] [phone] Appointment (Patient called in inquiring about oral [...] on filedocumented in this encounter Care Teams Film Processing Supervisor Relationship Specialty Start Date End Date Fausto Kirkpatrick MD [address] [place] [id number] PCP - General Internal Medicine 12/02/18 05/03/23 documented as of this encounter
--- OUTSIDE RECORDS SUMMARY | 2024-12-14 19:38 | XMS_ITS | Patient Health Record ---
Author Organization [facility] Address [address] [place] [address] Care Team Providers Care Lofter Name Role Phone AJIT ERVIN Unavailable [phone] Reason For Referral No Information Medications Medication [...] Status Risk Notes Problem Vitamin D deficiency (03010245) Vitamin D deficiency, unspecified (E55.9) Active confirmed Problem Adult health examination (447268691) Encounter for general adult medical examination without abnormal findings (Z00.00) Active confirmed Problem Essential hypertension (75155002) Hypertension, unspecified type (I10) Active confirmed Problem Essential hypertension (99955366) Hypertension, essential (I10) Active confirmed Problem Disorder of kidney and/or ureter (197316550) Kidney dysfunction (N28.9) Active confirmed Encounters Encounter Location Date Provider Diagnosis [facility] [phone] [address] 02/03/2024 AJIT ERVIN [facility] [address] [address] 02/03/2024 AJIT ERVIN Plan Of Treatment Pending Test Test Name Order Date CBC (COMPLETE BLOOD COUNT) WITH DIFF 05/2023 COMPREHENSIVE METABOLIC PANEL 10/27/2023 LIPID PANEL 10/27/2023 HEMOGLOBIN A1c 10/27/2023 TSH 10/27/2023 VITAMIN D, 1,25 DIHYDROXY LC/MS/MS 10/26 Insurance Providers Payer Name Payer Address Payer Phone Subscriber Number Group Number Insured Name Patient Relationship to Insured Coverage Start Date Coverage End Date [facility] [address] [place] [address] [phone] [id number] Roberto Trivedi Self - patient is the insured Medical (General) History Medical History History ICD Code Hypertension, essential I10
--- OUTSIDE RECORDS SUMMARY | 2024-12-14 19:38 | XMS_ITS | Clinical Summary ---
Author Organization [employer] Address [address] [place] [address] [address] [place] [address] Care Team Providers Care Behavioral Sciences Instructor Name Role Phone Unavailable Primary Care Provider [...] Insurance [place] AD[place] [facility]
== END 2024-12-14 22:54 | disposition home or self-care (01) ==
PROVIDERS: Physician Assistant Medical; Emergency Provider Emergency Medicine
DX: J45.901 Unspecified asthma with (acute) exacerbation (principal); R79.89 Other specified abnormal findings of blood chemistry; R94.31 Abnormal electrocardiogram [ECG] [EKG]; R06.02 Shortness of breath; I10 Essential (primary) hypertension; F12.90 Cannabis use, unspecified, uncomplicated; Z79.899 Other long term (current) drug therapy
CPT/HCPCS: 36415; 71046; 80048; 80076; 83735; 83880; 84484; 85025; 93005; 96365; 96375; 99284; 99285; J2919; J3475

== ENCOUNTER → 2024-12-14 17:11 | Outpatient (BNV) | payer BC, SELFPAY | PROVIDERS: Emergency Provider Emergency Medicine; Visit Provider Internal Medicine Cardiovascular Disease | DX: I45.4 Nonspecific intraventricular block (principal) | CPT/HCPCS: 93010 ==

== ENCOUNTER → 2024-12-14 17:11 | Outpatient (BNV) | payer BC, SELFPAY | PROVIDERS: Emergency Provider Emergency Medicine; Visit Provider Radiology Diagnostic Radiology | DX: I51.7 Cardiomegaly (principal); R91.8 Other nonspecific abnormal finding of lung field | CPT/HCPCS: 71046 ==

== ENCOUNTER 2024-12-18 11:25 | Outpatient (AMB) | payer BC, SELFPAY ==
--- OUTSIDE RECORDS SUMMARY | 2023-11-24 05:00 | XMS_ITS ---
Author Organization [facility] [address] Address [address] [place] [address] Care Team Providers Care Hook Tender Name Role Phone AJIT ERVIN Unavailable [phone] Medications Medication SIG (Take, Route, Frequency, Duration) [...] Status Risk Notes Problem Adult health examination ([id number]) Encounter for general adult medical examination without abnormal findings (Z00.00) Active confirmed Encounters Encounter Location Date Provider Diagnosis [facility] [address] [place] [phone] 11/24/2023 AJIT EVRIN Hypertension, unspecified type I10 ; Encounter for [...] with history of HTN currently following with Jaunita Jo MD with [facility]. Taking furosemide 40 mg daily, [...] #Kidney dysfunction: 1 prior note obtained from [facility] and reviewed. Per this documentation [...] reviewed. Dictation completed with the use of [employer] voice recognition software, prone to medical misidentifications [...] currently following with Juanita Jo MD with [facility]. Taking furosemide 40 mg daily, [...] #Kidney dysfunction: 1 prior note obtained from [facility] and reviewed. Per this documentation [...] reviewed. Dictation completed with the use of [employer] voice recognition software, prone to medical misidentifications [...] currently following with Juanita Jo MD with [facility]. Taking furosemide 40 mg daily, [...] #Kidney dysfunction: 1 prior note obtained from [facility] and reviewed. Per this documentation [...] reviewed. Dictation completed with the use of [employer] voice recognition software, prone to medical misidentifications and grammatical errors. All errors are unintentional. Although the practitioner does try to identify and correct errors, some may be present. Please do not hesitate to contact the practitioner for clarification. Plan Of Treatment No Information Progress Notes * Roberto TRIVEDIDOB:1995 ( 29 yo M)Acc No.[id number]:11/24/2023 CPE Patient: Roberto MCALLISTER Provider: William ERVIN PA-C :1995 A ge:28 Y S ex:Male Date:11/24/2023 Address:[address] [place], [place] [phone] Subjective: * Chief Complaints: * * HPI: [...] bilateral upper and lower extremities with flexion/extension. Veterans' Coordinator strength 5/5. Sensation intact. Neuro: CN II-XII [...] currently following with Juanita Jo MD with [facility]. Taking furosemide 40 mg daily, [...] #Kidney dysfunction: 1 prior note obtained from [facility] and reviewed. Per this documentation [...] reviewed. Dictation completed with the use of [employer] voice recognition software, prone to medical misidentifications and grammatical errors. All errors are unintentional. Although the practitioner does try to identify and correct errors, some may be present. Please do not hesitate to contact the practitioner for clarification. Plan: * Treatment: * Images: Billing Information: * Visit Code: * Procedure Codes: Care Plan Details* * Electronic signature of AGUSTIN ERVIN PA-C on 12/18/2024 at 02:43 PM EDT Sign off status: Pending * Provider: William ERVIN PA-C Date: Generated for Neha abraham/Micaela/Lynetteitting on: 02:43 PM EDT History and Physical Notes * [...] bilateral upper and lower extremities with flexion/extension. Veterans' Coordinator strength 5/5. Sensation intact. Neuro: CN II-XII grossly intact. Steady gait with non-assisted ambulation observed. Psych: Stable mood and affect.
--- OUTSIDE RECORDS SUMMARY | 2023-12-09 06:30 | XMS_ITS ---
Author Organization [facility] [address] Address [address] [place] [address] Care Team Providers Care Personal Health Coach Name Role Phone AJIT ERVIN Unavailable [phone] Encounters Encounter Location Date Provider Diagnosis [facility] [address] [address] 12/09/2023 AJIT ERVIN Plan Of Treatment No Information Progress Notes * Roberto TRIVEDIDOB:1995 ( 29 yo M)Acc No.[id number]:12/09/2023 CPE Patient: Roberto MCALLISTER Provider: William ERVIN PA-C :1995 A ge:28 Y S ex:Male Date:12/09/2023 Address:[address] [place], [place] [phone] Subjective: * Chief Complaints: * * Medical History: Objective: * Vitals: Assessment: Plan: * Treatment: * Images: Billing Information: * Visit Code: * Procedure Codes: Care Plan Details* * Electronic signature of AGUSTIN ERVIN PA-C on 12/18/2024 at 02:43 PM EDT Sign off status: Pending * Provider: William ERVIN PA-C Date: Generated for Neha abraham/Micaela/Luis on: 02:43 PM EDT
--- OUTSIDE RECORDS SUMMARY | 2024-01-03 05:15 | XMS_ITS ---
Author Organization [facility] [address] Address [address] [place] [address] Care Team Providers Care Cutter Finisher Name Role Phone AJIT ERVIN Unavailable [phone] Encounters Encounter Location Date Provider Diagnosis [facility] [address] [address] 01/03/2024 AJIT ERVIN Plan Of Treatment No Information Progress Notes * Roberto TRIVEDIDOB:1995 ( 29 yo M)Acc No.[id number]:01/03/2024 CPE Patient: Roberto MCALLISTER Provider: William ERVIN PA-C :1995 A ge:28 Y S ex:Male Date:01/03/2024 Address:[address] [place], [place] [phone] Subjective: * Chief Complaints: * * Medical History: Objective: * Vitals: Assessment: Plan: * Treatment: * Images: Billing Information: * Visit Code: * Procedure Codes: Care Plan Details* * Electronic signature of AGUSTIN ERVIN PA-C on 12/18/2024 at 02:43 PM EDT Sign off status: Pending * Provider: William ERVIN PA-C Date: 03/04/2023 Generated for Neha abraham/Micaela/Luis on: 02:43 PM EDT
--- OUTSIDE RECORDS SUMMARY | 2024-02-04 05:15 | XMS_ITS ---
Author Organization [facility] [address] Address [address] [place] [address] Care Team Providers Care Chef De Cuisine Name Role Phone AJIT ERVIN Unavailable [phone] Medications Medication SIG (Take, Route, Frequency, Duration) Notes Start Date End Date Status Furosemide 40 MG 1 tablet Orally Once a day Active Carvedilol 25 MG 1 tablet with food O rally Twice a day Active Losartan Potassium 25 MG 1 tablet Orally Once a day Active Encounters Encounter Location Date Provider Diagnosis [facility] [address] [address] 02/04/2024 AJIT ERVIN Plan Of Treatment No Information Progress Notes * Roberto ZURITADOB:1995 ( 29 yo M)Acc No.[id number]:02/04/2024 CPE Patient: Roberto MCALLISTER Provider: William ERVIN PA-C :1995 A ge:28 Y S ex:Male Date:02/04/2024 Address:[address] [place], [place] [phone] Subjective: * Chief Complaints: * * Medical [...] Information: * Visit Code: * Procedure Codes: 87259 NO SHOW OFFICE VISIT. Care Plan Details* * Electronic signature of AGUSTIN ERVIN PA-C on 12/18/2024 at 02:43 PM EDT Sign off status: Pending * Provider: William ERVIN PA-C Date: 1 04/06/2023 Generated for Neha abraham/Micaela/Luis on: 1 02:43 PM EDT
--- OUTSIDE RECORDS SUMMARY | 2024-03-02 06:45 | XMS_ITS ---
Author Organization [facility] [address] Address [address] [place] [address] Care Team Providers Care Senior Information Security Consultant Name Role Phone AJIT ERVIN Unavailable [phone] Encounters Encounter Location Date Provider Diagnosis [facility] [address] [address] 03/02/2024 AJIT ERVIN Plan Of Treatment No Information Progress Notes * Roberto TRIVEDIDOB:1995 ( 29 yo M)Acc No.[id number]:03/02/2024 CPE Patient: Roberto MCALLISTER Provider: William ERVIN PA-C :1995 A ge:28 Y S ex:Male Date:03/02/2024 Address:[address] [place], [place] [phone] Subjective: * Chief Complaints: * * Medical History: Objective: * Vitals: Assessment: Plan: * Treatment: * Images: Billing Information: * Visit Code: * Procedure Codes: Care Plan Details* * Electronic signature of AGUSTIN ERVIN PA-C on 12/18/2024 at 02:43 PM EDT Sign off status: Pending * Provider: William ERVIN PA-C Date: 0 03/02/2024 Generated for Neha abraham/Micaela/Luis on: 02:43 PM EDT
[2024-12-18 11:47] VITALS: BP 132/84; PULSE 88; O2SAT 97; BMI 47.9
--- NOTE | 2024-12-18 11:47 | A.OFFVIS_ITS ---
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 The patient reports snoring and is suspected to have obstructive sleep apnea. Patient states hard time staying alseep. Goes to bed around 9:30-10pm, wakes up at 4am. Wakes up 1-2times a night. Witnessed apnea/gasping. No naps/headaches. No history of sleep studies. Accompanied by: Self / Same As Patient Allergies No Known Allergies Allergy (Verified 12/18/24 11:50) HPI Comments Details: 29 year old male with HTN and h/o sleep difficulties is referred to us by his pcp for sleep evaluation. His BP is is managed on 3 medications, he had bronchitis last week and on a taper of Prednisone. He goes to bed at 10pm, wakes up at 4:15am with zero bathroom breaks. 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 He gasps for air at and snores loudly per his g/f. He denies morning headaches, he grinds his teeth at night. Denies Jaw pain. He denies parasomnias, his g/f tells him he talks in his sleep. He weighs 363lbs and is seeing a paint spraying machine operator helper in Dec 2024, BMI is elevated 47.9. He denies RLS symptom. He has low back pain. He walks daily at work, and completes about 10,000 steps a day. He denies smoking, alcohol use and or MJ. COUNT INCLUDES THE [facility] Medical History Back pain Pneumonia No known health problems Family History Father No problems noted. Mother No problems noted. Social History Housing: Apartment Do you presently have visiting nurse or other home services: No Alcohol intake: current Alcohol intake frequency: holidays/special occasions only Patient Tobacco Use Status: Never used Tobacco Second Hand Smoke Exposure: No service: No Current occupational status: employed Cognitive needs: No Hearing needs: No Vision needs: No Physical Exam Vital Signs: Last Vital Signs Pulse 88 12/18/24 11:47 BP 132/84 12/18/24 11:47 Pulse Ox 97 12/18/24 11:47 Oxygen Delivery Method Room Air 12/18/24 11:47 BMI result Body Mass Index 47.9 Const General: cooperative, comfortable and no acute distress Nutritional Appearance: obese Orientation/consciousness: patient oriented x3 HEENT Face and sinus: Yes face symmetric Teeth and gingiva: other (mallampti score is 4) Eyes Pupils: Equal, round and reactive pupils present Neck Neck: Yes full ROM Resp Effort & Inspection: normal respiratory effort and able to speak in complete sentences Neuro General: patient oriented x3 and moves all extremities Cranial nerves: Yes Equal, round and reactive pupils present, Yes Normal accommodation reflex present, Yes Normal facial strength present, Yes Midline tongue present, Yes Ability to bilaterally rotate head present and Yes Ability to bilaterally elevate shoulders present Cognition (Neuro): normal cognition Gait exam (Neuro): Wide-based gait present Motor exam (neuro): 5/5 motor strength present throughout, no tremor noted and Normal motor muscle tone present throughout Psych Appearance: grossly normal Speech and movement: Normal speech and movement present Attitude: cooperative Thought process: Normal thought process present Thought content: Normal thought content present Results Reviewed Results Reviewed: labs reviewed with pt IMPRESSION: 1. Mild cardiomegaly. 2. Bilateral perihilar opacities secondary to pneumonitis or fluid overload. Assessment & Plan Assessment & Plan (1) Excessive daytime sleepiness: Code(s): G47.19 - Other hypersomnia Category: Medical (2) Anemia: Code(s): D64.9 - Anemia, unspecified Category: Medical Qualifiers: Anemia type: unspecified type Qualified Code(s): D64.9 - Anemia, unspecified (3) Morbidly obese: Code(s): E66.01 - Morbid (severe) obesity due to excess calories Category: Medical Plan HST ro francis Labs r/o deficiencies and anemia BMI is elevated and morbid obesity / f/u with nutitionist Nov 4th. 3mon f/u Orders: Orders Methylmalonic Acid Today G47.19 - Other hypersomnia, G47.9 - Sleep disorder, unspecified, R53.83 - Other fatigue IRON PROFILE Today G47.19 - Other hypersomnia, G47.9 - Sleep disorder, unspecified, R53.83 - Other fatigue RT home sleep study Today G47.19 - Other hypersomnia Hemoglobin A1c Today G47.19 - Other hypersomnia Ferritin Today G47.19 - Other hypersomnia Homocysteine Today G47.19 - Other hypersomnia, G47.9 - Sleep disorder, unspecified, R53.83 - Other fatigue Vitamin D 25-OH Total Today G47.19 - Other hypersomnia Vitamin B12 and Folate Today G47.19 - Other hypersomnia TSH reflex Free T4 Today G47.19 - Other hypersomnia Patient Instructions: Sleep Hygiene provided: set a scheduled bedtime and wake time to help regulate the circadian rhythm and balance the release of pituitary hormones. Sleep in a dark room, temperatures below 68 degrees, and no devices n bed. Limit caffeinated products 6 hours prior to bed, and limit fluids 2-4 hours prior to bed. Gentle night yoga, diffusing essential oils, and playing soft music can be relaxing. Coding Level of Care Code New Pt Level 4 (35706) Diagnoses Excessive daytime sleepiness G47.19 Anemia, unspecified type D64.9 Anemia type: unspecified type Morbidly obese E66.01 Sleep Questionnaire Difficulty falling asleep: No Difficulty staying asleep?: Yes Number of arousals: 1 Snoring: Yes Witnessed apneas: No Gasping arousals: No Nocturia: No GERD: Yes Vivid dreams: No Acting out dreams: No Abnormal behavior in sleep: Yes (sleep talking) Abnormal movements in sleep: No Morning headaches: No Excessive daytime sleepiness: Yes Daytime naps: No Restless legs: No Hallucinations: No Sleep paralysis: No Drop attacks: No Sleep Study: No CPAP: No
--- OUTSIDE RECORDS SUMMARY | 2024-12-18 14:43 | XMS_ITS | Patient Health Record ---
Author Organization [facility] Address [address] [place] [address] Care Team Providers Care Plate Furnace Operator Name Role Phone AJIT ERVIN Unavailable [phone] Reason For Referral No Information Medications Medication [...] Status Risk Notes Problem Vitamin D deficiency (93831407) Vitamin D deficiency, unspecified (E55.9) Active confirmed Problem Adult health examination (322174353) Encounter for general adult medical examination without abnormal findings (Z00.00) Active confirmed Problem Essential hypertension (10258519) Hypertension, unspecified type (I10) Active confirmed Problem Essential hypertension (54246578) Hypertension, essential (I10) Active confirmed Problem Disorder of kidney and/or ureter (282983841) Kidney dysfunction (N28.9) Active confirmed Encounters Encounter Location Date Provider Diagnosis [facility] [address] [address] 02/03/2024 AJIT ERVIN [facility] [address] [address] 02/03/2024 AJIT ERVIN Plan Of Treatment Pending Test Test Name Order Date CBC (COMPLETE BLOOD COUNT) WITH DIFF 05/2023 COMPREHENSIVE METABOLIC PANEL 10/27/2023 LIPID PANEL 10/27/2023 HEMOGLOBIN A1c 10/27/2023 TSH 10/27/2023 VITAMIN D, 1,25 DIHYDROXY LC/MS/MS 10/26 Insurance Providers Payer Name Payer Address Payer Phone Subscriber Number Group Number Insured Name Patient Relationship to Insured Coverage Start Date Coverage End Date [facility] [address] [place] [address] [id number] Roberto Trivedi Self - patient is the insured Medical (General) History Medical History History ICD Code Hypertension, essential I10
--- OUTSIDE RECORDS SUMMARY | 2024-12-18 14:43 | XMS_ITS | Clinical Summary ---
Author Organization [employer] Address [address] [place] [address] 7t [place] [address] Care Team Providers Care Topper Press Operator Automatic Name Role Phone Unavailable Primary Care Provider [...] [place] [facility]
--- OUTSIDE RECORDS SUMMARY | 2024-12-18 14:43 | XMS_ITS | Encounter Summary ---
Author Organization [employer] Address [address] 7 [place] [address] Care Team Providers Care Licensed Insurance Agent Name Role Phone Fausto Kirkpatrick MD Primary Care Prov ider Reason for Visit * Reason Onset Date Comments Appointment 03/27/2022 Patient called i n inquiring about oral surgery for wisdom tooth extraction. Patient was informed that office will reach out to him for scheduling based on wait list DR Encounter Details Date Type Department Care Team ([facility] st Contact Info) Description 03/27/2022 Telephone [facility] ADULT DENTAL [address] [place], [place] [phone] Topher Daly, DMD [address] [place], [place] [phone] Appointment (Patient called in inquiring about oral [...] on filedocumented in this encounter Care Teams Licensed Insurance Agent Relationship Specialty Start Date End Date Fausto Kirkpatrick MD [address] [place] [id number] PCP - General Internal Medicine 12/02/18 05/03/23 documented as of this encounter
== END 2024-12-18 12:37 | disposition home or self-care (01) ==
PROVIDERS: Visit Provider Physician Assistant Medical
DX: G47.19 Other hypersomnia (principal); D64.9 Anemia, unspecified; E66.01 Morbid (severe) obesity due to excess calories
CPT/HCPCS: 99204

== ENCOUNTER 2024-12-26 09:22 | Outpatient (AMB) | payer BC, SELFPAY ==
--- OUTSIDE RECORDS SUMMARY | 2023-11-24 04:00 | XMS_ITS ---
Author Organization [facility] [address] Address [address] [place] [address] Care Team Providers Care Recyclable Products Sorter Name Role Phone AJIT ERVIN Unavailable [phone] Medications Medication SIG (Take, Route, Frequency, Duration) Notes Start Date End Date Status Losartan Potassium 25 MG 1 tablet Orally Once a day Active Furosemide 40 MG 1 tablet Orally Once a day Active Carvedilol 25 MG 1 tablet with food O rally Twice a day Active Problems Problem Type SNOMED Code ICD Code Onset Dates Problem Status W/U Status Risk Notes Problem Adult health examination (219806829) Encounter for general adult medical examination without abnormal findings (Z00.00) Active confirmed Encounters Encounter Location Date Provider Diagnosis [facility] [address] [place] [phone] 11/24/2023 AJIT ERVIN Hypertension, unspecified type I10 ; Encounter for general adult medical examination without abnormal findings Z00.00 and Kidney dysfunction N28.9 Assessments Encounter Date Diagnosis (ICD Code) Assessment Notes Treatment Notes Treatment Clinical Notes Section Notes 11/24/2023 Hypertension, unspecified type (ICD-10 - I10) Roberto is a 28-year-old male with a PMH of HTN that presents for BP follow-up #HTN: Patient with history of HTN currently following with Juanita Jo MD with [facility]. Taking furosemide 40 mg daily, carvedilol 25 mg twice daily, and losartan 25 mg daily. Initial BP in office elevated, repeat reading shows 144/84. At time of last visit patient was instructed to keep a.m./p.m. BP log. Patient presented with recorded blood pressures today. BP readings average from systolic 118-1 40, diastolic 78-80 overall BP seems adequately controlled with only 3 systolic readings at or above 140. Patient due to follow-up with tomorrow, 11/11/2023. #Kidney dysfunction: 1 prior note obtained from [facility] and reviewed. Per this documentation the patient was hospitalized for viral pneumonia at which time he was found to have kidney failure (?DARIA). Per labs obtained 06/24/2023, kidney function WNL - BUN 17, creatinine 0.92. Repeat labs including CMP ordered for continued evaluation. Additional documents requested for continued review. All questions answered to the patient's satisfaction. Patient demonstrates understanding of diagnosis and treatments discussed. Follow-up 11/23 for CPE with lab review, sooner should any questions/concerns arise. Case discussed with collaborating physician Awa Singh who has reviewed the assessment/plan. Chart, medications, labs, and vital signs reviewed. Dictation completed with the use of [employer] voice recognition software, prone to medical misidentifications and grammatical errors. All errors are unintentional. Although the practitioner does try to identify and correct errors, some may be present. Please do not hesitate to contact the practitioner for clarification. 11/24/2023 Encounter for general adult medical examination without abnormal findings (ICD-10 - Z00.00) Roberto is a 28-year-old male with a PMH of HTN that presents for BP follow-up #HTN: Patient with history of HTN currently following with Juanita Jo MD with [facility]. Taking furosemide 40 mg daily, carvedilol 25 mg twice daily, and losartan 25 mg daily. Initial BP in office elevated, repeat reading shows 144/84. At time of last visit patient was instructed to keep a.m./p.m. BP log. Patient presented with recorded blood pressures today. BP readings average from systolic 118-1 40, diastolic 78-80 overall BP seems adequately controlled with only 3 systolic readings at or above 140. Patient due to follow-up with tomorrow, 11/11/2023. #Kidney dysfunction: 1 prior note obtained from [facility] and reviewed. Per this documentation the patient was hospitalized for viral pneumonia at which time he was found to have kidney failure (?DARIA). Per labs obtained 06/24/2023, kidney function WNL - BUN 17, creatinine 0.92. Repeat labs including CMP ordered for continued evaluation. Additional documents requested for continued review. All questions answered to the patient's satisfaction. Patient demonstrates understanding of diagnosis and treatments discussed. Follow-up 11/23 for CPE with lab review, sooner should any questions/concerns arise. Case discussed with collaborating physician Awa Singh who has reviewed the assessment/plan. Chart, medications, labs, and vital signs reviewed. Dictation completed with the use of [employer] voice recognition software, prone to medical misidentifications and grammatical errors. All errors are unintentional. Although the practitioner does try to identify and correct errors, some may be present. Please do not hesitate to contact the practitioner for clarification. 11/24/2023 Kidney dysfunction (ICD-10 - N28.9) Roberto is a 28-year-old male with a PMH of HTN that presents for BP follow-up #HTN: Patient with history of HTN currently following with Juanita Jo MD with [facility]. Taking furosemide 40 mg daily, carvedilol 25 mg twice daily, and losartan 25 mg daily. Initial BP in office elevated, repeat reading shows 144/84. At time of last visit patient was instructed to keep a.m./p.m. BP log. Patient presented with recorded blood pressures today. BP readings average from systolic 118-1 40, diastolic 78-80 overall BP seems adequately controlled with only 3 systolic readings at or above 140. Patient due to follow-up with tomorrow, 11/11/2023. #Kidney dysfunction: 1 prior note obtained from [facility] and reviewed. Per this documentation the patient was hospitalized for viral pneumonia at which time he was found to have kidney failure (?DARIA). Per labs obtained 06/24/2023, kidney function WNL - BUN 17, creatinine 0.92. Repeat labs including CMP ordered for continued evaluation. Additional documents requested for continued review. All questions answered to the patient's satisfaction. Patient demonstrates understanding of diagnosis and treatments discussed. Follow-up 11/23 for CPE with lab review, sooner should any questions/concerns arise. Case discussed with collaborating physician Awa Singh who has reviewed the assessment/plan. Chart, medications, labs, and vital signs reviewed. Dictation completed with the use of [employer] voice recognition software, prone to medical misidentifications and grammatical errors. All errors are unintentional. Although the practitioner does try to identify and correct errors, some may be present. Please do not hesitate to contact the practitioner for clarification. Plan Of Treatment No Information Progress Notes * Roberto TRIVEDIDOB:1995 ( 29 yo M)Acc No.[id number]:11/24/2023 CPE Patient: Roberto MCALLISTER Provider: William ERVIN PA-C :1995 A ge:28 Y S ex:Male Date:11/24/2023 Address:[address] [place], [place] [id number] Subjective: * Chief Complaints: * * HPI: C onstitutional: Roberto is a 28-year-old male with a PMH of HTN that presents for annual CPE. * ROS: C onstitutional: Denies sudden weight loss, fever, night sweats, excessive fatigue, or changes in sleep. Ophthalmic: Denies eye discharge, itchiness, redness, or vision changes. ENT: Denies ear pain, drainage from the ears, ringing, or changes to hearing. Denies runny nose, nasal congestion, or sneezing. Denies sore throat, postnasal drip, or change to quality of voice. CV: Denies chest pain or heart palpitations. Denies pain with walking or notable swelling to lower extremities. Respiratory: Denies SOB, cough, hemoptysis, sputum production, wheezing, or pleuritic pain. GI: Denies nausea, vomiting, diarrhea, constipation, blood in stools, pain associated with eating, indigestion, or difficulty/pain with swallowing. : Denies painful urination, hesitancy, blood in urine, incontinence, or abnormal discharge. MSK: Denies back pain, joint deformity/pain, or muscle weakness. Integumentary: Denies skin changes. Neuro: Denies history of seizures, memory loss, confusion, language dysfunction, localized weakness, dizziness, numbness or tingling. Psychiatric: No current depression, anxiety, or suicidal thoughts. Feels safe at home. Endocrine: Denies polyuria, polyphagia, or polydipsia. No heat/cold intolerance or excessive thirst. Hematological: Denies easy bruising/bleeding, no lymph node swelling. * Medical History: * Medications: T aking Furosemide 40 MG Tablet 1 tablet Orally Once a day , Taking Carvedilol 25 MG Tablet 1 tablet with food Orally Twice a day , Taking Losartan Potassium 25 MG Tablet 1 tablet Orally Once a day Objective: * Vitals: * Physical Examination: G eneral: Age appropriate, well-appearing 28-year-old male in no acute distress, speaking in full sentences without visible respiratory distress. Well groomed, well developed. Alert, interactive. Skin: Warm, dry and intact. No lesions/rashes/erythema. HEENT: Normocephalic/atraumatic. EOMI/vision intact. PERRL. No ptosis or lid lag. Nares without discharge or inflammation. Oral cavity free of plaques or exudates. Dentition well maintained. No pharyngeal erythema/edema. Ear canal without cerumen or discharge. Well aerated middle ear spaces with intact TMs bilaterally. Neck/Thyroid: Supple, no lymphadenopathy. Full ROM. No carotid artery bruits auscultated. Thyroid symmetrical, nonenlarged, and free of nodules to palpation. CV: RRR, no murmurs/rubs or gallops on auscultation. Capillary refill <2 seconds. Lungs: Clear to auscultation bilaterally, no wheezes, rales or rhonchi. Equal chest rise and fall bilaterally. Abdomen: Soft and nontender to palpation. No rebound/guarding. Normoactive bowel sounds. No palpable masses. No CVA tenderness. Lower Extremities: Bilateral lower extremities without edema or rubor, no evidence of varicose veins. Equal tone bilaterally. MSK: 5/5 strength in bilateral upper and lower extremities with flexion/extension. Electronic System Engineer strength 5/5. Sensation intact. Neuro: CN II-XII grossly intact. Steady gait with non-assisted ambulation observed. Psych: Stable mood and affect. Assessment: * Assessment: 1. E ncounter for general adult medical examination without abnormal findings - Z00.00 (Primary) 2 . H ypertension, unspecified type - I10 3 . K idney dysfunction - N28.9 Roberto is a 28-year-old male with a PMH of HTN that presents for BP follow-up #HTN: Patient with history of HTN currently following with Juanita Jo MD with [facility]. Taking furosemide 40 mg daily, carvedilol 25 mg twice daily, and losartan 25 mg daily. Initial BP in office elevated, repeat reading shows 144/84. At time of last visit patient was instructed to keep a.m./p.m. BP log. Patient presented with recorded blood pressures today. BP readings average from systolic 118-1 40, diastolic 78-80 overall BP seems adequately controlled with only 3 systolic readings at or above 140. Patient due to follow-up with tomorrow, 11/11/2023. #Kidney dysfunction: 1 prior note obtained from [facility] and reviewed. Per this documentation the patient was hospitalized for viral pneumonia at which time he was found to have kidney failure (?DARIA). Per labs obtained 06/24/2023, kidney function WNL - BUN 17, creatinine 0.92. Repeat labs including CMP ordered for continued evaluation. Additional documents requested for continued review. All questions answered to the patient's satisfaction. Patient demonstrates understanding of diagnosis and treatments discussed. Follow-up 11/23 for CPE with lab review, sooner should any questions/concerns arise. Case discussed with collaborating physician Awa Singh who has reviewed the assessment/plan. Chart, medications, labs, and vital signs reviewed. Dictation completed with the use of [employer] voice recognition software, prone to medical misidentifications and grammatical errors. All errors are unintentional. Although the practitioner does try to identify and correct errors, some may be present. Please do not hesitate to contact the practitioner for clarification. Plan: * Treatment: * Images: Billing Information: * Visit Code: * Procedure Codes: Care Plan Details* * Electronic signature of AGUSTIN ERVIN PA-C on 12/26/2024 at 10:16 AM EST Sign off status: Pending * Provider: William ERVIN PA-C Date: Generated for Neha abraham/Micaela/Luis on: 02/26/2024 10:16 AM EST History and Physical Notes * HPI (History of Present Illness) Category Sub-Category Detail Notes Category Not es Constitutional Roberto is a [age]-year-old male with a PMH of HTN that presents for annual CPE. Physical Examination Category Sub-Category Detail Notes Section Note s General: Age appropriate, well-appearing 28-year-old male in no acute distress, speaking in full sentences without visible respiratory distress. Well groomed, well developed. Alert, interactive. Skin: Warm, dry and intact. No lesions/rashes/erythema. HEENT: Normocephalic/atraumatic. EOMI/vision intact. PERRL. No ptosis or lid lag. Nares without discharge or inflammation. Oral cavity free of plaques or exudates. Dentition well maintained. No pharyngeal erythema/edema. Ear canal without cerumen or discharge. Well aerated middle ear spaces with intact TMs bilaterally. Neck/Thyroid: Supple, no lymphadenopathy. Full ROM. No carotid artery bruits auscultated. Thyroid symmetrical, nonenlarged, and free of nodules to palpation. CV: RRR, no murmurs/rubs or gallops on auscultation. Capillary refill <2 seconds. Lungs: Clear to auscultation bilaterally, no wheezes, rales or rhonchi. Equal chest rise and fall bilaterally. Abdomen: Soft and nontender to palpation. No rebound/guarding. Normoactive bowel sounds. No palpable masses. No CVA tenderness. Lower Extremities: Bilateral lower extremities without edema or rubor, no evidence of varicose veins. Equal tone bilaterally. MSK: 5/5 strength in bilateral upper and lower extremities with flexion/extension. Electronic System Engineer strength 5/5. Sensation intact. Neuro: CN II-XII grossly intact. Steady gait with non-assisted ambulation observed. Psych: Stable mood and affect.
--- OUTSIDE RECORDS SUMMARY | 2023-12-09 05:30 | XMS_ITS ---
Author Organization [facility] [address] Address [address] [place] [address] Care Team Providers Care Adjustment Clerk Name Role Phone AJIT ERVIN Unavailable [phone] Encounters Encounter Location Date Provider Diagnosis [facility] [address] [address] 12/09/2023 AJIT REVIN Plan Of Treatment No Information Progress Notes * Roberto TRIVEDIDOB:1995 ( 29 yo M)Acc No.[id number]:12/09/2023 CPE Patient: Roberto MCALLISTER Provider: William ERVIN PA-C :1995 A ge:28 Y S ex:Male Date:12/09/2023 Address:[address] [place], [place] [phone] Subjective: * Chief Complaints: * * Medical History: Objective: * Vitals: Assessment: Plan: * Treatment: * Images: Billing Information: * Visit Code: * Procedure Codes: Care Plan Details* * Electronic signature of AGUSTIN ERVIN PA-C on 12/26/2024 at 10:16 AM EST Sign off status: Pending * Provider: William ERVIN PA-C Date: Generated for Neha abraham/Micaela/Luis on: 02/26/2024 10:16 AM EST
--- OUTSIDE RECORDS SUMMARY | 2024-01-03 04:15 | XMS_ITS ---
Author Organization [facility] [address] Address [address] [place] [address] Care Team Providers Care Demo Event Specialist Name Role Phone AJIT ERVIN Unavailable [phone] Encounters Encounter Location Date Provider Diagnosis [facility] [address] [address] 01/03/2024 AJIT ERVIN Plan Of Treatment No Information Progress Notes * Roberto TRIVEDIDOB:1995 ( 29 yo M)Acc No.[id number]:01/03/2024 CPE Patient: Roberto MCALLISTER Provider: William ERVIN PA-C :1995 A ge:28 Y S ex:Male Date:01/03/2024 Address:[address] [place], [place] [phone] Subjective: * Chief Complaints: * * Medical History: Objective: * Vitals: Assessment: Plan: * Treatment: * Images: Billing Information: * Visit Code: * Procedure Codes: Care Plan Details* * Electronic signature of AGUSTIN ERVIN PA-C on 12/26/2024 at 10:17 AM EST Sign off status: Pending * Provider: William ERVIN PA-C Date: 03/04/2023 Generated for Neha abraham/Micaela/Luis on: 02/26/2024 10:17 AM EST
--- OUTSIDE RECORDS SUMMARY | 2024-02-04 04:15 | XMS_ITS ---
Author Organization [facility] [address] Address [address] [place] [address] Care Team Providers Care Player Development Executive Name Role Phone AJIT ERVIN Unavailable [phone] Medications Medication SIG (Take, Route, Frequency, Duration) Notes Start Date End Date Status Furosemide 40 MG 1 tablet Orally Once a day Active Carvedilol 25 MG 1 tablet with food O rally Twice a day Active Losartan Potassium 25 MG 1 tablet Orally Once a day Active Encounters Encounter Location Date Provider Diagnosis [facility] [address] [address] 02/04/2024 AJIT ERVIN Plan Of Treatment No Information Progress Notes * Roberto ZURITADOB:1995 ( 29 yo M)Acc No.[id number]:02/04/2024 CPE Patient: Roberto MCALLISTER Provider: William ERVIN PA-C :1995 A ge:28 Y S ex:Male Date:02/04/2024 Address:[address] [place], [place] [phone] Subjective: * Chief Complaints: * * Medical History: * Medications: T aking Furosemide 40 MG Tablet 1 tablet Orally Once a day , Taking Carvedilol 25 MG Tablet 1 tablet with food Orally Twice a day , Taking Losartan Potassium 25 MG Tablet 1 tablet Orally Once a day Objective: * Vitals: Assessment: Plan: * Treatment: * Procedure Codes: 9 9199 NO SHOW OFFICE VISIT * Images: Billing Information: * Visit Code: * Procedure Codes: 62657 NO SHOW OFFICE VISIT. Care Plan Details* * Electronic signature of AGUSTIN ERVIN PA-C on 12/26/2024 at 10:16 AM EST Sign off status: Pending * Provider: William ERVIN PA-C Date: 04/06/2023 Generated for Neha abraham/Micaela/Luis on: 02/26/2024 10:16 AM EST
--- OUTSIDE RECORDS SUMMARY | 2024-03-02 05:45 | XMS_ITS ---
Author Organization [facility] [address] Address [address] [place] [address] Care Team Providers Care Clinical Lab Clerk Name Role Phone AJIT ERVIN Unavailable [phone] Encounters Encounter Location Date Provider Diagnosis [facility] [address] [address] 03/02/2024 AJIT ERVIN Plan Of Treatment No Information Progress Notes * Roberto TRIVEDIDOB:1995 ( 29 yo M)Acc No.[id number]:03/02/2024 CPE Patient: Roberto MCALLISTER Provider: William ERVIN PA-C :1995 A ge:28 Y S ex:Male Date:03/02/2024 Address:[address] [place], [place] [phone] Subjective: * Chief Complaints: * * Medical History: Objective: * Vitals: Assessment: Plan: * Treatment: * Images: Billing Information: * Visit Code: * Procedure Codes: Care Plan Details* * Electronic signature of AGUSTIN ERVIN PA-C on 12/26/2024 at 10:17 AM EST Sign off status: Pending * Provider: William ERVIN PA-C Date: 0 03/02/2024 Generated for Neha abraham/Micaela/Luis on: 02/26/2024 10:17 AM EST
--- NOTE | 2024-12-26 09:37 | MHC.AMNUTRGE ---
VS Expanded 12/26/24 09:39 12/26/24 09:53 Height 6 ft 1 in 6 ft 1 in Weight 351 lb 6.669 oz 351 lb BMI 46.4 46.3 Intake Visit Reasons: Morbid (severe) obesity due to excess calories Allergies No Known Allergies Allergy (Verified 12/18/24 11:50) Nutrition Presentation Details: Pt presents for MNT for obesity Pt reports having stopped fast food this past week, working on diet modifications Pt and looking forward to conceiving and are working on dietary modifications. Breakfast in the past week 9 am : sweet potatoes , ground turkey, water 12 chicken and white rice, , brocoli and water -7 pm premade salads chicken ceasear and sweet potato and turkey weekend tends to have increased calorie intake Pt acknolw physical activity: 1 hr at the gym on weekends cardio in weekend at the gym power [facility] in [facility] Monitoring Most Recent Diabetes Results: Cholesterol, (<200) 217 mg/dL H 11/02/24 HDL Cholesterol, (>40) 34 mg/dL L 11/02/24 Triglycerides, (<150) 163 mg/dL H 11/02/24 Creatinine, (0.5-1.4) 0.71 mg/dL 12/14/24 BUN, (9-16) 7 mg/dL L 12/14/24 Sodium, (135-145) 141 mmol/L 12/14/24 Potassium, (3.3-5.1) 3.3 mmol/L 12/14/24 Chloride, (96-108) 107 mmol/L 12/14/24 Carbon Dioxide, (22-29) 25 mmol/L 12/14/24 Calcium, (8.4-10.2) 8.9 mg/dL Δ 12/14/24 AST, (5-37) 39 U/L H 12/14/24 ALT, (0-40) 56 U/L H 12/14/24 Total Protein, (6.5-8.0) 7.3 g/dL 12/14/24 Albumin, (3.5-5.0) 4.4 g/dL 12/14/24 MTU-Eqxbpne-Cf.Jeor Equation Height: 6 ft 1 in Weight: 351 lb Resting Metabolic Rate: 2616.63 Calculated Activity Level: Sedentary Calories Needed to Maintain Weight: 3139.96 Diagnosis Nutrition problem #1: excessive energy intake As related to (etiology) #1: diagnosis As evidenced by (sign/symptom) #1: knowledge deficit of diet [facility] Medical History Back pain Pneumonia No known health problems Family History Father No problems noted. Mother No problems noted. Social History Housing: Apartment Do you presently have visiting nurse or other home services: No Alcohol intake: current Alcohol intake frequency: holidays/special occasions only Patient Tobacco Use Status: Never used Tobacco Second Hand Smoke Exposure: No service: No Current occupational status: employed Cognitive needs: No Hearing needs: No Vision needs: No Assessment & Plan Assessment & Plan (1) Morbidly obese: Code(s): E66.01 - Morbid (severe) obesity due to excess calories Category: Medical Plan: current wt: 159 kg ( December/2024 ) est kcal needs as per MSJ: 3100 est protein needs as per 1 g/kg BW: 160 est fluid needs as per 30 ml/kg BW: 4800 Recommended fiber > 12 g /day and gradually increase up to 25-28 g /day or as tolerated Nutrition topics discussed : Reviewed (R), Pt verbalized understanding (V) , not applicable (N/A) R, : Healthy Plate Method Concept: R, : Carbohydrates: food sources of carbohydrates, relationship of carbohydrates to blood glucose, fatty liver GI health. Recommended total amount of carbohydrates per meals and snack. Differences between simple carbohydrates and complex carbohydrates R, : Lean protein foods including vegan , vegetarian sources of protein. Benefits of protein (including but not limited to healing, nutritional value , benefits in weight loss, glucose control R, : Fats : Source of fats, benefits of fats. Difference between saturated and unsaturated fats. Saturated fats and its contribution to inflammation R, : Fiber: food sources and role of fiber in the diet (including but not limited to its role as a prebiotic, benefits in constipation, role in IBS , role in glucose control and cholesterol level) R: Hydration: role of hydration and prevention of dehydration or over hydration. Foods and water content. R, V, N/A: Vitamins and Minerals in foods and supplements R, V, N/A: Interpreting food labels, including serving size, macronutrients, vitamins, minerals, allergens, ingredient list , % daily value Patient Instructions: Practice mindful eating Work on having 3 meals a day reducing total carbs to less than 100 g per meal, following healthy plate method Have a protein shake as a bedtime snack, see list of options for low calorie low carb snacks, limit snacks to no more than 2 a day Coding Level of Care Code Nutr Indiv Intake (79328) Diagnoses Morbidly obese E66.01 Time Spent (min) 30
[2024-12-26 09:39] VITALS: BMI 46.4
--- OUTSIDE RECORDS SUMMARY | 2024-12-26 10:16 | XMS_ITS | Encounter Summary ---
Author Organization [employer] Address [address] [place] [address] Care Team Providers Care Hand Bender Name Role Phone Fausto Kirkpatrick MD Primary Care Prov ider Reason for Visit * Reason Onset Date Comments Appointment 03/27/2022 Patient called i n inquiring about oral surgery for wisdom tooth extraction. Patient was informed that office will reach out to him for scheduling based on wait list DR Encounter Details Date Type Department Care Team ([facility] st Contact Info) Description 03/27/2022 Telephone [facility] ADULT DENTAL [address] [place], [place] [phone] Topher Daly, DMD [address] [place], [place] [phone] Appointment (Patient called in inquiring about oral [...] on filedocumented in this encounter Care Teams Hand Bender Relationship Specialty Start Date End Date Fausto Kirkpatrick MD [address] [place] [id number] PCP - General Internal Medicine 12/02/18 05/03/23 documented as of this encounter
--- OUTSIDE RECORDS SUMMARY | 2024-12-26 10:17 | XMS_ITS | Clinical Summary ---
Author Organization [employer] Address [address] [place] [address] 7t [place] [address] Care Team Providers Care Assembler Radio And Electrical Name Role Phone Unavailable Primary Care Provider [...] Insurance [place] HSN [facility]
--- OUTSIDE RECORDS SUMMARY | 2024-12-26 10:17 | XMS_ITS | Patient Health Record ---
Author Organization [facility] [address] Address [address] [place] [address] Care Team Providers Care Special Shopper Name Role Phone AJIT ERVIN Unavailable [phone] Reason For Referral No Information Medications Medication [...] Status Risk Notes Problem Vitamin D deficiency (16971524) Vitamin D deficiency, unspecified (E55.9) Active confirmed Problem Adult health examination (053968263) Encounter for general adult medical examination without abnormal findings (Z00.00) Active confirmed Problem Essential hypertension (14255906) Hypertension, unspecified type (I10) Active confirmed Problem Essential hypertension (14906413) Hypertension, essential (I10) Active confirmed Problem Disorder of kidney and/or ureter (493191328) Kidney dysfunction (N28.9) Active confirmed Encounters Encounter Location Date Provider Diagnosis [facility] [phone] [address] 02/03/2024 AJIT ERVIN [facility] [address] [address] 02/03/2024 AJIT ERVIN Plan Of Treatment Pending Test Test Name Order Date CBC (COMPLETE BLOOD COUNT) WITH DIFF 05/2023 COMPREHENSIVE METABOLIC PANEL 10/27/2023 LIPID PANEL 10/27/2023 HEMOGLOBIN A1c 10/27/2023 TSH 10/27/2023 VITAMIN D, 1,25 DIHYDROXY LC/MS/MS 10/26 Insurance Providers Payer Name Payer Address Payer Phone Subscriber Number Group Number Insured Name Patient Relationship to Insured Coverage Start Date Coverage End Date [facility] [address] [place] [address] [phone] [id number] Roberto Trivedi Self - patient is the insured Medical (General) History Medical History History ICD Code Hypertension, essential I10
[2025-01-01 12:59] VITALS: BMI 46.3
== END 2024-12-26 10:18 | disposition home or self-care (01) ==
LOC: HO.ENCR 09:22
PROVIDERS: PCP Student in an Organized Health Care Education/Training Program; Visit Provider Dietitian, Registered
DX: E66.01 Morbid (severe) obesity due to excess calories (principal)

== ENCOUNTER → 2024-12-26 09:22 | Outpatient (BNVA) | payer BC, SELFPAY | PROVIDERS: PCP Student in an Organized Health Care Education/Training Program; Visit Provider Dietitian, Registered | DX: E66.01 Morbid (severe) obesity due to excess calories (principal); Z68.42 Body mass index [BMI] 45.0-49.9, adult; Z71.3 Dietary counseling and surveillance | CPT/HCPCS: 97802 ==

== ENCOUNTER → 2025-01-03 12:42 | Outpatient (REF) | payer BC, SELFPAY ==
--- OUTSIDE RECORDS SUMMARY | 2023-11-24 04:00 | XMS_ITS ---
Author Organization [facility] [address] Address [address] [place] [address] Care Team Providers Care Material Worker Name Role Phone AJIT ERVIN Unavailable [phone] Medications Medication SIG (Take, Route, Frequency, Duration) [...] Status Risk Notes Problem Adult health examination ([id number]) Encounter for general adult medical examination without abnormal findings (Z00.00) Active confirmed Encounters Encounter Location Date Provider Diagnosis [facility] [address] [place] [phone] 11/24/2023 AJIT ERVIN Hypertension, unspecified type I10 [...] obtained from [facility] and reviewed. Per this documentation the patient [...] reviewed. Dictation completed with the use of [employer] voice recognition software, prone to medical misidentifications [...] MD with [facility]. Taking furosemide 40 mg daily, carvedilol 25 [...] obtained from [facility] and reviewed. Per this documentation the patient [...] reviewed. Dictation completed with the use of [employer] voice recognition software, prone to medical misidentifications [...] reviewed. Dictation completed with the use of [employer] voice recognition software, prone to medical misidentifications [...] bilateral upper and lower extremities with flexion/extension. Planning Consultant strength 5/5. Sensation intact. Neuro: CN II-XII grossly intact. Steady gait with non-assisted ambulation observed. Psych: Stable mood and affect. Progress Notes * Roberto TRIVEDIDOB:1995 ( 29 yo M)Acc No.[id number]:11/24/2023 CPE Patient: Roberto Akbar Provider: William ERVIN PA-C :1995 A ge:28 Y S ex:Male Date:11/24/2023 Address:[address] [place] [address] [place] [id number] Subjective: * Chief Complaints: * HPI: C [...] bilateral upper and lower extremities with flexion/extension. Planning Consultant strength 5/5. Sensation intact. Neuro: CN II-XII [...] reviewed. Dictation completed with the use of [employer] voice recognition software, prone to medical misidentifications and grammatical errors. All errors are unintentional. Although the practitioner does try to identify and correct errors, some may be present. Please do not hesitate to contact the practitioner for clarification. Care Plan Details* * Electronic signature of AGUSTIN ERVIN PA-C on 01/03/2025 at 03:18 PM EST Sign off status: Pending * Provider: William ERVIN PA-C Date: Generated for Neha abraham/Micaela/Lynetteitting on: 03/05/2024 03:18 PM EST
--- OUTSIDE RECORDS SUMMARY | 2023-12-09 05:30 | XMS_ITS ---
Author Organization [facility] [address] Address [address] [place] [address] Care Team Providers Care Vascular Ultrasound Technologist Name Role Phone AJIT ERVIN Unavailable [phone] Encounters Encounter Location Date Provider Diagnosis [facility] [address] [address] 12/09/2023 AJIT ERVIN Plan Of Treatment No Information Progress Notes * Roberto TRIVEDIDOB:1995 ( 29 yo M)Acc No.[id number]:12/09/2023 CPE Patient: Matilde chambers Armani Provider: William ERVIN PA-C :1995 A ge:28 Y S ex:Male Date:12/09/2023 Address:[address] [place], [place] [phone] Care Plan Details* * Electronic signature of AGUSTIN ERVIN PA-C on 01/03/2025 at 03:18 PM EST Sign off status: Pending * Provider: William ERVIN PA-C Date: Generated for Darciei leigh/Micaela/eTransmitting on: 03/05/2024 03:18 PM EST
--- OUTSIDE RECORDS SUMMARY | 2024-01-03 04:15 | XMS_ITS ---
Author Organization [facility] [address] Address [address] [place] [address] Care Team Providers Care Sales Operations Lead Name Role Phone AJIT ERVIN Unavailable [phone] Encounters Encounter Location Date Provider Diagnosis [facility] [address] [address] 01/03/2024 AJIT ERVIN Plan Of Treatment No Information Progress Notes * Roberto TRIVEDIDOB:1995 ( 29 yo M)Acc No.[id number]:01/03/2024 CPE Patient: Matilde chambers Armani Provider: William ERVIN PA-C :1995 A ge:28 Y S ex:Male Date:01/03/2024 Address:[address] [place], [place] [phone] Care Plan Details* * Electronic signature of AGUSTIN ERVIN PA-C on 01/03/2025 at 03:19 PM EST Sign off status: Pending * Provider: William ERVIN PA-C Date: 03/04/2023 Generated for Darciei leigh/Micaela/eTransmitting on: 03/05/2024 03:19 PM EST
--- OUTSIDE RECORDS SUMMARY | 2024-02-04 04:15 | XMS_ITS ---
Author Organization [facility] [address] Address [address] [place] [address] Care Team Providers Care Shank Stapler Name Role Phone AJIT ERVIN Unavailable [phone] Medications Medication SIG (Take, Route, Frequency, Duration) [...] [facility] [address] [address] 02/04/2024 AJIT ERVIN Plan Of Treatment No Information Progress Notes * FAROOQ RobertoDOB:1995 ( 29 yo M)Acc No.[id number]:02/04/2024 CPE Patient: Roberto Akbar Provider: William ERVIN PA-C :1995 A ge:28 Y S ex:Male Date:02/04/2024 Address:[address] [place], [place] [phone] Subjective: * Chief Complaints: * Medications: T [...] OFFICE VISIT Billing Information: * Procedure Codes: 71603 NO SHOW OFFICE VISIT. Care Plan Details* * Electronic signature of AGUSTIN ERVIN PA-C on 01/03/2025 at 03:18 PM EST Sign off status: Pending * Provider: William ERVIN PA-C Date: 04/06/2023 Generated for Neha abraham/Micaela/uLis on: 03/05/2024 03:18 PM EST
--- OUTSIDE RECORDS SUMMARY | 2024-03-02 05:45 | XMS_ITS ---
Author Organization [facility] [address] Address [address] [place] [address] Care Team Providers Care Veterans' Coordinator Name Role Phone AJIT ERVIN Unavailable [phone] Encounters Encounter Location Date Provider Diagnosis [facility] [address] [address] 03/02/2024 JAIT ERVIN Plan Of Treatment No Information Progress Notes * Roberto TRIVEDIDOB:1995 ( 29 yo M)Acc No.[id number]:03/02/2024 CPE Patient: Matilde chambers Armani Provider: William ERVIN PA-C :1995 A ge:28 Y S ex:Male Date:03/02/2024 Address:[address] [place], [place] [phone] Care Plan Details* * Electronic signature of AGUSTIN ERVIN PA-C on 01/03/2025 at 03:18 PM EST Sign off status: Pending * Provider: William ERVIN PA-C Date: 0 03/02/2024 Generated for Darciei leigh/Micaela/eTransmitting on: 1 03/05/2024 03:18 PM EST
--- NOTE | 2025-01-03 12:44 | CA_ITS ---
Transthoracic Echocardiogram Patient (Last, First, Middle): Roberto Trivedi, Gender: Male Date of : 1995 Age: 29 Procedure Date: 01/03/2025 Procedure Type: Transthoracic Echocardiogram Location: OP Height: 185.42 cm Weight: 159.21 kg BSA: 2.73 m2 Heart Rate: bpm BP: 130 / 82 mmHg Land Management Supervisor: TO Referring MD: Ronal Robledo MD Tailor Garment Fitter: Jules Eli MD Symptoms: I42.9 - Cardiomyopathy, unspecified Study Quality: Fair/Contrast ECG Rhythm: Sinus Conclusions: - 1. Severely increased LV cavity size with mildly increased wall thickness with moderately reduced LV ejection fraction of 35-40% with grade 1 diastolic dysfunction 2. Mildly dilated right ventricle 3. Cardiac valvular Dopplers within normal limits 4. Mildly dilated ascending aortic root Findings Procedure Information Contrast agent, definity, is being given per protocol without apparent complications. Left Ventricle Severely increased left ventricular cavity size. There is mildly increased left ventricular wall thickness. The left ventricular systolic function is moderately decreased. The visually estimated ejection fraction is between 35 40%. There is moderate global hypokinesis. Spectral Doppler is indicative of an impaired relaxation filling pattern. E/E prime ratio is <8, consistent with normal filling pressures. Evidence suggests grade I (mild) diastolic dysfunction. Right Ventricle The right ventricle was not well visualized. Mildly increased right ventricular cavity size. There is normal right ventricular systolic function. Atria Both atria are normal in size. Interatrial shunt cannot be excluded. Aortic Valve The aortic valve structure and function is likely normal. There is no aortic valve stenosis. There is no aortic valve regurgitation. Mitral Valve Likely normal mitral valve structure and function. There is trace mitral valve regurgitation. There is no mitral valve stenosis. Pulmonic Valve The pulmonic valve was not well visualized. Tricuspid Valve The tricuspid valve was not well visualized. Tricuspid regurgitation envelope is inadequate for calculation of right ventricular systolic pressure. Normal right atrial pressure. Great Vessels The aorta was not well visualized. The pulmonary artery was not well visualized. There is mild dilatation of the sinuses of Valsalva. Venous The inferior vena cava is normal in size and collapses greater than 50% with inspiration. Pericardium/Pleural The pericardium was not well visualized. Prior Study Comparison Changes noted compared to prior study dated: 05/19/2023. LV systolic function has improved Measurements 2D Linear Measurements IVSd: 1.16 0.6-0.9/0.6-1.0 cm LVIDd: 6.73 3.9-5.3/4.2-5.9 cm LVIDd Index: 2.47 2.4-3.2/2.2-3.1 cm/m2 LVIDs: 5.04 2.0-3.6 cm LVPWd: 1.18 0.7-1.1 cm LV Mass: 458.97 67-162/88-224 g LV Mass Index: 168.12 43-95/49-115 g/m2 LVOT Diam: 2.50 3.0+(-)1.3 cm 2D Systolic Function EF 4C: 40.20 >55% EF 2C: 35.00 >55% EF BiP: 37.80 >55% Mitral Valve MV Pk E: 0.48 MV PK A: 0.41 MV Decel Time: 199.00 E/A: 1.20 E'Lateral: 6.53 E'Medial: 6.85 E/E' Med: 7.00 E/E' Lat: 7.40 PHT: 58.00 MVA PHT: 3.79 Decel [place]: 2.41 Aortic Valve AoV Pk Jefry: 1.31 AoV Mn Jefry: 0.93 AoV VTI: 0.21 AoV Pk Grad: 7.00 Aov Mn Grad: 4.00 CHRISTIAN Cont.VTI: 3.72 LVOT LVOT Pk Jefry: 1.00 LVOT Mn Jefry: 0.69 LVOT VTI: 0.16 LVOT Pk Grad: 4.00 LVOT Mn Grad: 2.00 LVOT Diam: 2.50 LVOT Area: 4.91 Diastolic Function MV Pk E: 0.48 MV Pk A: 0.41 E/A: 1.20 E'Medial: 6.85 E/E' Med: 7.00 E' Laterial: 6.53 E/E' Lat: 7.40 Right Ventricle TAPSE (mm): 20.90 TVS' Jefry: 11.40 Tricuspid Valve RA Press: 3.00 Great Vessels Aorta Sinus of Valsalva: 4.09 2.0-3.5 cm Ao Asc: 3.50 2.1-3.4 cm Ao Arch: 2.90 Updated in Other Vendor System with Status of Final Jules Eli MD electronically signed on 01/03/2025 6:53:22 PM with status of Final
--- OUTSIDE RECORDS SUMMARY | 2025-01-03 15:18 | XMS_ITS | Encounter Summary ---
Author Organization [employer] Address [address] [place] [address] Care Team Providers Care Multicraft Operator Name Role Phone Fausto Kirkpatrick MD Primary Care Prov ider Reason for Visit * Reason Onset Date Comments Appointment 03/27/2022 Patient called i n inquiring about oral surgery for wisdom tooth extraction. Patient was informed that office will reach out to him for scheduling based on wait list DR Encounter Details Date Type Department Care Team ([facility] st Contact Info) Description 03/27/2022 Telephone [facility] ADULT DENTAL [address] [place], [place] [phone] Topher Daly, DMD [address] [place], [place] [phone] Appointment (Patient called in inquiring about oral [...] on filedocumented in this encounter Care Teams Multicraft Operator Relationship Specialty Start Date End Date Fausto Kirkpatrick MD [address] [place] [id number] PCP - General Internal Medicine 12/02/18 05/03/23 documented as of this encounter
--- OUTSIDE RECORDS SUMMARY | 2025-01-03 15:19 | XMS_ITS | Clinical Summary ---
Author Organization [employer] Address [address] [place] [address] 7t [place] [address] Care Team Providers Care Freight Handler Name Role Phone Unavailable Primary Care Provider [...] Insurance [place] AD[place] HSN [facility]
--- OUTSIDE RECORDS SUMMARY | 2025-01-03 15:19 | XMS_ITS | Patient Health Record ---
Author Organization [facility] [address] Address [address] [place] [address] Care Team Providers Care Knotting Machine Operator Name Role Phone AJIT ERVIN Unavailable [phone] Reason For Referral No Information Medications Medication SIG (Take, Route, Frequency, Duration) Notes Start Date End Date Status Furosemide 40 MG Tablet 1 tablet Orally Once a day Active Carvedilol 25 MG Tablet 1 tablet with fo od Orally Twice a day Active Losartan Potassium 25 MG Tablet 1 tablet Orally Once a day A ctive Social History Section Notes: Smoking; No Alcohol; Yes Smoking; No Alcohol; Yes Problems Problem Type SNOMED Code ICD Code Onset Dates Problem Status W/U Status Risk Notes Problem Vitamin D deficiency (43818918) Vitamin D deficiency, unspecified (E55.9) Active confirmed Problem Adult health examination (544591214) Encounter for general adult medical examination without abnormal findings (Z00.00) Active confirmed Problem Essential hypertension (99331639) Hypertension, unspecified type (I10) Active confirmed Problem Essential hypertension (98073355) Hypertension, essential (I10) Active confirmed Problem Disorder of kidney and/or ureter (593214207) Kidney dysfunction (N28.9) Active confirmed Encounters Encounter Location Date Provider Diagnosis [facility] [address] [address] 02/03/2024 AJIT ERVIN [facility] [address] [address] 02/03/2024 AJIT ERVIN Plan Of Treatment Pending [...] Date Coverage End Date [facility] [address] [place] [address] [id number] Roberto Trivedi Self - patient is the insured Medical (General) History Medical History History ICD Code Hypertension, essential I10
== END ==
LOC: HO.CARD 12:42
PROVIDERS: PCP Student in an Organized Health Care Education/Training Program; Visit Provider Student in an Organized Health Care Education/Training Program
DX: I42.9 Cardiomyopathy, unspecified (principal)
CPT/HCPCS: 93306; Q9957

== ENCOUNTER → 2025-01-03 12:44 | Outpatient (BNV) | payer BC, SELFPAY | PROVIDERS: PCP Student in an Organized Health Care Education/Training Program; Visit Provider Internal Medicine Cardiovascular Disease | DX: I51.89 Other ill-defined heart diseases (principal); I77.810 Thoracic aortic ectasia | CPT/HCPCS: 93306 ==

== ENCOUNTER 2025-01-22 16:12 | Outpatient (AMB) | payer BC, SELFPAY ==
--- NOTE | 2025-01-22 16:17 | MHC.PC.OV ---
Vital Signs 01/22/25 16:20 Height 6 ft 1 in Weight 357 lb 2 oz BMI 47.1 BP 132/82 Blood Pressure Location Rt radial Position Sitting Respiration 18 Pulse 84 Pulse Source Monitor Temp 98.6 F Temp Source Oral Pulse Oximetry (%) 98 Oxygen Delivery Method Room Air Intake Visit Reasons: EP - Follow up Intake Note: Follow up Insulator Cutter And Former Required: No Accompanied by: Self / Same As Patient Allergies No Known Allergies Allergy (Verified 01/22/25 16:20) Medication List - Last Reconciled 01/22/25 by Ronal Robledo MD amlodipine-valsartan 10-320 mg (Exforge) 1 tab PO DAILY ascorbic acid (vitamin C) 500 mg PO DAILY carvedilol 6.25 mg See Protocol PO BID ferrous sulfate (iron) 325 mg PO DAILY spironolacton-hydrochlorothiaz 25-25 mg 1 tab PO DAILY Tobacco use date assessed: 11/02/24 Dental Screening Dental Screen Date: 11/02/24 HPI HPI Comments History of Present Illness Details History of Present Illness The patient is a 29 year old individual presenting for a follow-up visit to review test results and for management of chronic conditions. Congestive Heart Failure: The patient has a history of congestive heart failure, with a prior echocardiogram in April 2023 showing a severely reduced ejection fraction of 15-20%. A recent follow-up echocardiogram demonstrated improvement, with the left ventricular systolic function noted to be better and the ejection fraction now at 35-40%. Other findings on the recent echo include a severely increased left ventricular cavity size, mildly increased wall thickness, grade 1 diastolic dysfunction, a mildly dilated right ventricle, and a mildly dilated ascending aortic root. The patient was seen by a auto club travel counselor during a hospitalization in 2023. Hypertension: The patient is on multiple medications for blood pressure, including amlodipine, valsartan, carvedilol, and spironolactone-hydrochlorothiazide. Iron Deficiency Anemia: About three months ago, in October or November, the patient was started on ferrous sulfate and vitamin C for anemia. Obesity: The patient's weight on 12/18 was 363 pounds, and the current weight is 357 pounds. The patient has been walking the dog more and does not feel winded with this activity. The patient has previously seen a director internal audit and has another appointment scheduled. History of Bronchitis: The patient had a past episode of bronchitis or a significant cough attack, for which the patient was given prednisone and an inhaler. The patient reports feeling fine now, with only a little occasional cough. Back Pain: The patient had a prior issue with back pain, for which physical therapy was considered. The patient reports the back is fine now and manages any discomfort by using a massage gun on the lower back, which provides relief for weeks. Medications: - Ferrous sulfate, for anemia - Vitamin C, taken with ferrous sulfate - Amlodipine - Valsartan - Carvedilol, taken twice a day - Spironolactone-hydrochlorothiazide, taken once a day - Discontinued: Codeine with guaifenesin, Prednisone Social History: - Exercise: The patient reports an increase in physical activity, specifically walking the dog more, and denies feeling winded during this activity. - Nutrition and Weight Management: The patient is actively engaged in weight management, having lost approximately 6 pounds since the last recorded weight. - Functional Status: The patient reports feeling fine and drives. Diagnostic Results: - Echocardiogram: Compared to a study from 05/15, results show improved left ventricular (LV) systolic function. - LV ejection fraction has improved from 15-20% to 35-40%. - Findings include severely increased LV cavity size, mildly increased wall thickness, and Grade 1 diastolic dysfunction. - Also noted are a mildly dilated right ventricle and a mildly dilated ascending aortic root. - Cardiac valvular Doppler was within normal limits. Past Medical History - Congestive heart failure with reduced ejection fraction, diagnosed in 2023 - Hospitalization in 2023 - Iron deficiency anemia - Hypertension - History of bronchitis - Back pain, resolved - Obesity Health Maintenance - Weight management: The patient has had a weight loss of 6 pounds since the last check in November. - The patient is following up with a director internal audit. - Healthy lifestyle: The patient has increased physical activity by walking. - Screening and Follow-up: An abdominal ultrasound is scheduled for February 12. - A sleep study is scheduled for March 20. - A nephrology check-up is scheduled for April 09. - A referral has been placed for a cardiology follow-up. [facility] Medical History Back pain Pneumonia No known health problems Family History Father No problems noted. Mother No problems noted. Social History (Updated 01/22/25 @ 16:20 by Matty Herring CMA) Housing: Apartment Do you presently have visiting nurse or other home services: No Alcohol intake: current Alcohol intake frequency: holidays/special occasions only Patient Tobacco Use Status: Never used Tobacco e-Cigarette/Vaping Use: Never Used Second Hand Smoke Exposure: No service: No Current occupational status: employed Cognitive needs: No Hearing needs: No Vision needs: No Questionnaire Thrive Questionnaire Date Thrive assessed: 11/02/24 I am a: Patient What is your living situation today?: I have a steady place to live Within the past 12 months, did the food you bought not last and you didn't have the money to get more?: Never true Within the past 12 months, did you worry whether your food would run out before you got money to buy more?: Never true Do you have trouble paying for medicines?: No Do you have trouble getting transportation to medical appointments?: No Do you have trouble paying your heating and electricity bill?: No Do you have trouble taking care of your child, family member or friend?: No Do you have trouble with day-to-day activities such as bathing, preparing meals, shopping, managing finances, etc.?: No Are you currently unemployed and looking for a job?: No Are you interested in more education?: No Please select the resources that you would like help with: None Currently or been in a relationship where the following occur: No concerns reported THRIVE Score: 0 VANCE-7 AMB Questionnaire VANCE-7 Date VANCE - 7 assessed: 11/02/24 Source: Developed by Drs. Nathan Garcia, Angie Gaston, Vj Plaza and colleagues, with an educational heber from [employer]. Review of Systems Narrative Review of Systems - Constitutional: Reports feeling fine. - Respiratory: Denies feeling winded on exertion. - Reports an occasional minor cough. - Musculoskeletal: Denies back pain, reporting previous issues have resolved. 10-point ROS reviewed and negative except as noted in HPI Physical exam (Primary Care) Vital Signs: Last Vital Signs Temp 98.6 F 01/22/25 16:20 Pulse 84 01/22/25 16:20 Resp 18 01/22/25 16:20 BP 132/82 01/22/25 16:20 Pulse Ox 98 01/22/25 16:20 Oxygen Delivery Method Room Air 01/22/25 16:20 BMI result Body Mass Index 47.1 Tobacco/Smoking Status: Tobacco use Status Tobacco use date assessed 11/02/24 01/22/25 16:25 Patient Tobacco Use Status Never used Tobacco 01/22/25 16:25 e-Cigarette/Vaping Use Never Used 01/22/25 16:25 Thrive Assessment: Date of Thrive Assessment Date Thrive assessed 11/02/24 01/22/25 16:25 Currently or been in a relationship where the following occur: No concerns reported Narrative Physical Exam General: Well-appearing, in no acute distress. Vital signs: Blood pressure 132/82. Weight 357 lbs. HEENT: Normocephalic, atraumatic. PERRLA, EOMI. Conjunctiva clear, sclera anicteric. Oropharynx clear, mucous membranes moist. TMs intact bilaterally. Neck: Supple, no lymphadenopathy, no thyromegaly, no JVD or carotid bruits. Cardiovascular: RRR, normal S1/S2, no murmurs, rubs, or gallops. Peripheral pulses 2+ and symmetric. No edema. Echocardiogram shows improved LV systolic function with severely increased LV cavity size, mildly increased wall thickness, and moderately reduced LV ejection fraction of 35 to 40%. Respiratory: Lungs clear to auscultation bilaterally, no wheezes, rales, or rhonchi. Normal effort. Patient reports occasional cough, but no current respiratory distress. Abdomen: Soft, non-tender, non-distended. Normoactive bowel sounds. No hepatosplenomegaly, no masses. MSK: Full range of motion, no joint swelling or deformity. Normal gait. Patient reports using a massage gun for back pain relief. Skin: Warm, dry, intact. No rashes, lesions, or pallor. Neuro: Alert and oriented x3. Cranial nerves II-XII intact. Strength 5/5 throughout. Sensation intact. Reflexes 2+ symmetric. Normal coordination and gait. Psych: Appropriate mood and affect. Normal judgment and insight. Coding Level of Care Code Est Pt Level 3 (44650) Diagnoses HTN (hypertension) I10 Hypertension type: unspecified Cardiomyopathy I42.9 Cardiomyopathy type: unspecified CHF (congestive heart failure) I50.9 Morbidly obese E66.01 Anemia, unspecified type D64.9 Anemia type: unspecified type Assessment & Plan Assessment & Plan (1) HTN (hypertension): Code(s): I10 - Essential (primary) hypertension Category: Medical Qualifiers: Hypertension type: unspecified Qualified Code(s): I10 - Essential (primary) hypertension (2) Cardiomyopathy: Code(s): I42.9 - Cardiomyopathy, unspecified Category: Medical Qualifiers: Cardiomyopathy type: unspecified Qualified Code(s): I42.9 - Cardiomyopathy, unspecified (3) CHF (congestive heart failure): Code(s): I50.9 - Heart failure, unspecified Category: Medical (4) Morbidly obese: Code(s): E66.01 - Morbid (severe) obesity due to excess calories Category: Medical (5) Anemia: Code(s): D64.9 - Anemia, unspecified Category: Medical Qualifiers: Anemia type: unspecified type Qualified Code(s): D64.9 - Anemia, unspecified Plan Consent Patient was informed and verbally consented to the use of an ambient scribe for clinic note documentation during this visit. Plan 1. Congestive Heart Failure - Echocardiogram shows significant improvement in ejection fraction from 15-20% to 35-40%, though it remains moderately reduced. - Continue current heart failure medications: carvedilol, amlodipine, valsartan, and spironolactone-hydrochlorothiazide. - A referral will be placed for follow-up with cardiology for ongoing management. 2. Iron Deficiency Anemia - Continue taking ferrous sulfate with vitamin C as prescribed. 3. Obesity - The patient has achieved weight loss, with current weight at 357 lbs, down from 363 lbs. - Encourage continued lifestyle changes, including increased activity such as walking. - Continue follow-up with the director internal audit. 4. Preventative Care - The patient is scheduled for an ultrasound on February 12 and a sleep study on March 20. - The patient is scheduled for a nephrology checkup on April 09. - The patient has upcoming specialist appointments with endocrinology and cardiology (referral placed). Discussion Notes I reviewed the recent echocardiogram results with the patient, explaining that the ejection fraction, which measures how much blood the heart pumps out, has improved significantly from 15-20% to 35-40%. I clarified that while this is a great improvement, it is still below the normal range, and the patient's heart function remains moderately reduced. We reconciled the patient's medications, and I confirmed that the patient should continue taking amlodipine, valsartan, carvedilol twice daily, and spironolactone-hydrochlorothiazide once daily, in addition to the ferrous sulfate and vitamin C. I acknowledged the patient's successful weight loss and increased activity level, and we discussed the importance of continuing these efforts. I informed the patient that I am placing a referral for a cardiology follow-up, emphasizing the need for specialist care at least annually. We also confirmed the patient's schedule for upcoming appointments, including an ultrasound, a sleep study, and a visit with a kidney specialist. Patient Instructions - Continue taking your current medications, which include amlodipine, valsartan, carvedilol (twice a day), spironolactone-hydrochlorothiazide (once a day), ferrous sulfate, and vitamin C. - It is very important that you follow up with a heart doctor (auto club travel counselor). A referral has been sent, and you will be contacted to schedule this appointment. - Keep your scheduled appointments: ultrasound on February 12, sleep study on March 20, and kidney checkup on April 09. - Continue your positive lifestyle changes, including walking for exercise and following up with your director internal audit. - Continue using the massage gun for your lower back as needed for pain relief. Medical Decision Making The patient is a 29-year-old individual with a history of severe congestive heart failure with reduced ejection fraction, who presents for a follow-up visit. The primary focus of this visit was to review recent echocardiogram results, which showed a significant improvement in LVEF from 15-20% to 35-40%, indicating a positive response to current medical therapy. Despite this improvement, the patient's LVEF remains moderately reduced, and structural abnormalities such as severe LV cavity size increase persist, warranting continued aggressive medical management and specialist oversight. The patient's current medication regimen, including an ARB (valsartan), beta-florence (carvedilol), calcium channel florence (amlodipine), and diuretic (spironolactone-HCTZ), is appropriate for guideline-directed medical therapy. Given the improved cardiac function and controlled blood pressure of 132/82 mmHg, the plan is to continue the current doses. A referral to cardiology is essential for continued specialist management and long-term monitoring, as annual follow-up is indicated. The patient's comorbidities, including obesity and anemia, are being addressed. The patient's proactive engagement in lifestyle modification, evidenced by weight loss and increased activity, is a positive prognostic factor and was strongly encouraged. Ongoing coordination of care with multiple specialists (nephrology, sleep medicine, endocrinology, nutrition) is necessary for comprehensive management. Total Time Statement 20 min Total time spent caring for the patient today includes pre-visit chart review, documentation, review of laboratory and diagnostic imaging results, medication reconciliation, medically necessary evaluation, counseling on diagnoses, care coordination, ordering appropriate tests and medications, review of tests performed by other providers, reporting test results to the patient, and communication with other healthcare providers. Orders: Referrals Cardiology Referral I10 - Essential (primary) hypertension, I42.9 - Cardiomyopathy, unspecified, I50.9 - Heart failure, unspecified
[2025-01-22 16:20] VITALS: BP 132/82; PULSE 84; RESP 18; TEMP 37; O2SAT 98; BMI 47.1
--- OUTSIDE RECORDS SUMMARY | 2025-01-22 18:41 | XMS_ITS | Encounter Summary ---
Author Organization [employer] Address [address] [place] [address] Care Team Providers Care Lead Vulcanizing Operator Name Role Phone Fausto Kirkpatrick MD Primary Care Prov ider Reason for Visit * Reason Onset Date Comments Appointment 03/27/2022 Patient called i n inquiring about oral surgery for wisdom tooth extraction. Patient was informed that office will reach out to him for scheduling based on wait list DR Encounter Details Date Type Department Care Team ([facility] st Contact Info) Description 03/27/2022 Telephone [facility] ADULT DENTAL [address] [place], [place] [phone] Topher Daly, DMD [address], [place] [phone] Appointment (Patient called in inquiring about oral [...] on filedocumented in this encounter Care Teams Lead Vulcanizing Operator Relationship Specialty Start Date End Date Fausto Kirkpatrick MD [address] [place] [id number] PCP - General Internal Medicine 12/02/18 05/03/23 documented as of this encounter
--- OUTSIDE RECORDS SUMMARY | 2025-01-22 18:41 | XMS_ITS | Clinical Summary ---
Author Organization [employer] Address [address] [place] [address] [address]t [place] [address] Care Team Providers Care Audiovisual Lead Technician Name Role Phone Unavailable Primary Care [...] Insurance [place] ST[place] AD[place] HSN PARTIAL DENTAL-[facility] MEDICAID STAND ADULT
== END 2025-01-22 16:41 | disposition home or self-care (01) ==
LOC: HO.HMCFMS 16:13
PROVIDERS: PCP Student in an Organized Health Care Education/Training Program; Visit Provider Student in an Organized Health Care Education/Training Program
DX: I10 Essential (primary) hypertension (principal); I42.9 Cardiomyopathy, unspecified; I50.9 Heart failure, unspecified; E66.01 Morbid (severe) obesity due to excess calories; D64.9 Anemia, unspecified

== ENCOUNTER → 2025-02-13 14:11 | Outpatient (REF) | payer BC, SELFPAY ==
--- OUTSIDE RECORDS SUMMARY | 2023-11-24 04:00 | XMS_ITS ---
Author Organization [facility] [address] Address [address] [place] [address] Care Team Providers Care Glass Grinder Name Role Phone AJIT ERVIN Unavailable [phone] Medications Medication SIG (Take, Route, Frequency, Duration) Notes Start Date End Date Status Losartan Potassium 25 MG Tablet 1 tablet Orally Once a day A ctive Furosemide 40 MG Tablet 1 tablet Orally Once a day Active Carvedilol 25 MG Tablet 1 tablet with fo od Orally Twice a day Active Problems Problem Type SNOMED Code ICD Code Onset Dates Problem Status W/U Status Risk Notes Problem Adult health examination (655599896) Encounter for general adult medical examination without abnormal findings (Z00.00) Active confirmed Encounters Encounter Location Date Provider Diagnosis [facility] [address] [place] [phone] 11/24/2023 AJIT ERVIN Hypertension, unspecified type I10 [...] currently following with Juanita Jo MD with [facility]. Taking furosemide 40 mg daily, [...] #Kidney dysfunction: 1 prior note obtained from [facility] and reviewed. Per this documentation the [...] reviewed. Dictation completed with the use of [employer] voice recognition software, prone to medical misidentifications [...] currently following with Juanita Jo MD with [facility]. Taking furosemide 40 mg daily, carvedilol [...] #Kidney dysfunction: 1 prior note obtained from [facility] and reviewed. Per this documentation the [...] reviewed. Dictation completed with the use of [employer] voice recognition software, prone to medical misidentifications [...] currently following with Juanita Jo MD with [facility]. Taking furosemide 40 mg daily, [...] #Kidney dysfunction: 1 prior note obtained from [facility] and reviewed. Per this documentation [...] reviewed. Dictation completed with the use of [employer] voice recognition software, prone to medical misidentifications and grammatical errors. All errors are unintentional. Although the practitioner does try to identify and correct errors, some may be present. Please do not hesitate to contact the practitioner for clarification. Plan Of Treatment No Information History and Physical Notes * HPI (History [...] bilateral upper and lower extremities with flexion/extension. Wet End Operator strength 5/5. Sensation intact. Neuro: CN II-XII grossly intact. Steady gait with non-assisted ambulation observed. Psych: Stable mood and affect. Progress Notes * Roberto TRIVEDIDOB:1995 ( 29 yo M)Acc No.[id number]:11/24/2023 CPE Patient: Roberto Akbar Provider: William ERVIN PA-C :1995 A ge:28 Y S ex:Male Date:11/24/2023 Address:[address] [place] [address] ARAM [id number] Subjective: * Chief Complaints: * HPI: C onstitutional: Roberto is a [...] easy bruising/bleeding, no lymph node swelling. * Medications: T akingFurosemide 40 MG Tablet 1 tablet Orally Once a day Carvedilol 25 MG Tablet 1 tablet with food Orally Twice a day Losartan Potassium 25 MG Tablet 1 tablet Orally Once a day Taking Furosemide 40 MG Tablet 1 tablet Orally Once a day Taking Carvedilol 25 MG Tablet 1 tablet with food Orally Twice a day Taking Losartan Potassium 25 MG Tablet 1 tablet Orally Once a day Objective: * Physical Examination: G eneral: Age appropriate, [...] bilateral upper and lower extremities with flexion/extension. Wet End Operator strength 5/5. Sensation intact. Neuro: CN II-XII [...] currently following with Juanita Jo MD with [facility]. Taking furosemide 40 mg daily, [...] #Kidney dysfunction: 1 prior note obtained from [facility] and reviewed. Per this documentation [...] reviewed. Dictation completed with the use of [employer] voice recognition software, prone to medical misidentifications and grammatical errors. All errors are unintentional. Although the practitioner does try to identify and correct errors, some may be present. Please do not hesitate to contact the practitioner for clarification. Care Plan Details* * Electronic signature of AGUSTIN ERVIN PA-C on 02/13/2025 at 03:27 PM EST Sign off status: Pending * Provider: William ERVIN PA-C Date: Generated for Neha abraham/Micaela/Lynetteitting on: 04/16/2024 03:27 PM EST
--- OUTSIDE RECORDS SUMMARY | 2023-12-09 05:30 | XMS_ITS ---
Author Organization [facility] [address] Address [address] [place] [address] Care Team Providers Care Orthodontist Vice President Name Role Phone AJIT ERVIN Unavailable [phone] Encounters Encounter Location Date Provider Diagnosis [facility] [address] [address] 12/09/2023 AJIT ERVIN Plan Of Treatment No Information Progress Notes * Roberto TRIVEDIDOB:1995 ( 29 yo M)Acc No.[id number]:12/09/2023 CPE Patient: Matilde chambers Armani Provider: William ERVIN PA-C :1995 A ge:28 Y S ex:Male Date:12/09/2023 Address:[address] [place], [place] [phone] Care Plan Details* * Electronic signature of AGUSTIN ERVIN PA-C on 02/13/2025 at 03:27 PM EST Sign off status: Pending * Provider: William ERVIN PA-C Date: 1 Generated for Darciei leigh/Micaela/eTransmitting on: 1 04/16/2024 03:27 PM EST
--- OUTSIDE RECORDS SUMMARY | 2024-01-03 04:15 | XMS_ITS ---
Author Organization [facility] [address] Address [address] [place] [address] Care Team Providers Care Order Planner Name Role Phone AJIT ERVIN Unavailable [phone] Encounters Encounter Location Date Provider Diagnosis [facility] [address] [address] 01/03/2024 AJIT ERVIN Plan Of Treatment No Information Progress Notes * Roberto TRIVEDIDOB:1995 ( 29 yo M)Acc No.[id number]:01/03/2024 CPE Patient: Matilde chambers Armani Provider: William ERVIN PA-C :1995 A ge:28 Y S ex:Male Date:01/03/2024 Address:[address] [place], [place] [phone] Care Plan Details* * Electronic signature of AGUSTIN ERVIN PA-C on 02/13/2025 at 03:28 PM EST Sign off status: Pending * Provider: William ERVIN PA-C Date: 03/04/2023 Generated for Darciei leigh/Micaela/eTransmitting on: 04/16/2024 03:28 PM EST
--- OUTSIDE RECORDS SUMMARY | 2024-02-04 04:15 | XMS_ITS ---
Author Organization [facility] [address] Address [address] [place] [address] Care Team Providers Care Lacquer Dipping Machine Operator Name Role Phone AJIT ERVIN Unavailable [phone] Medications Medication SIG (Take, Route, Frequency, Duration) Notes Start Date End Date Status Furosemide 40 MG Tablet 1 tablet Orally Once a day Active Carvedilol 25 MG Tablet 1 tablet with fo od Orally Twice a day Active Losartan Potassium 25 MG Tablet 1 tablet Orally Once a day A ctive Encounters Encounter Location Date Provider Diagnosis [facility] [address] [address] 02/04/2024 AJIT ERVIN Plan Of Treatment No Information Progress Notes * FAROOQ RobertoDOB:1995 ( 29 yo M)Acc No.[id number]:02/04/2024 CPE Patient: Roberto Akbar Provider: William ERVIN PA-C :1995 A ge:28 Y S ex:Male Date:02/04/2024 Address:[address] [place], [place] [phone] Subjective: * Chief Complaints: * Medications: T akingFurosemide 40 MG Tablet [...] Tablet 1 tablet Orally Once a day Plan: * Procedure Codes: 9 9199 NO SHOW OFFICE VISIT Billing Information: * Procedure Codes: 47253 NO SHOW OFFICE VISIT. Care Plan Details* * Electronic signature of AGUSTIN ERVIN PA-C on 02/13/2025 at 03:27 PM EST Sign off status: Pending * Provider: William ERVIN PA-C Date: 04/06/2023 Generated for Neha abraham/Micaela/Luis on: 04/16/2024 03:27 PM EST
--- OUTSIDE RECORDS SUMMARY | 2024-03-02 05:45 | XMS_ITS ---
Author Organization [facility] [address] Address [address] [place] [address] Care Team Providers Care Grinding Supervisor Name Role Phone AJIT ERVIN Unavailable [phone] Encounters Encounter Location Date Provider Diagnosis [facility] [address] [address] 03/02/2024 AJIT ERVIN Plan Of Treatment No Information Progress Notes * Roberto TRIVEDIDOB:1995 ( 29 yo M)Acc No.[id number]:03/02/2024 CPE Patient: Matilde chambers Armani Provider: William ERVIN PA-C :1995 A ge:28 Y S ex:Male Date:03/02/2024 Address:[address] [place], [place] [phone] Care Plan Details* * Electronic signature of AGUSITN ERVIN PA-C on 02/13/2025 at 03:27 PM EST Sign off status: Pending * Provider: William ERVIN PA-C Date: 0 03/02/2024 Generated for Darciei leigh/Micaela/eTransmitting on: 1 04/16/2024 03:27 PM EST
--- OUTSIDE RECORDS SUMMARY | 2025-02-13 15:27 | XMS_ITS | Encounter Summary ---
Author Organization [employer] Address [address] [place] [address] Care Team Providers Care Theatrical Agent Name Role Phone Fausto Kirkpatrick MD Primary Care Prov ider Reason for Visit * Reason Onset Date Comments Appointment 03/27/2022 Patient called i n inquiring about oral surgery for wisdom tooth extraction. Patient was informed that office will reach out to him for scheduling based on wait list DR Encounter Details Date Type Department Care Team ([facility] st Contact Info) Description 03/27/2022 Telephone [facility] AD[facility] [address] [place], [place] [phone] Topher Daly, DMD [address], [place] [phone] Appointment (Patient called in inquiring about oral [...] on filedocumented in this encounter Care Teams Theatrical Agent Relationship Specialty Start Date End Date Fausto Kirkpatrick MD [address] [place] [phone] PCP - General Internal Medicine 12/02/18 05/03/23 documented as of this encounter
--- OUTSIDE RECORDS SUMMARY | 2025-02-13 15:28 | XMS_ITS | Clinical Summary ---
Author Organization [employer] Address [address] [place] [address] [address] [place] [address] Care Team Providers Care Senior C Software Engineer Name Role Phone Unavailable Primary Care [...] MEDICAID STAND ADULT HSN PARTIAL DENTAL-[facility] MEDICAID STAND ADULT
--- OUTSIDE RECORDS SUMMARY | 2025-02-13 15:28 | XMS_ITS | Patient Health Record ---
Author Organization [facility] [address] Address [address] [place] [address] Care Team Providers Care Threat Monitoring Analyst Name Role Phone AJIT ERVIN Unavailable [phone] Reason For Referral No Information Medications Medication [...] Status Risk Notes Problem Vitamin D deficiency (01707548) Vitamin D deficiency, unspecified (E55.9) Active confirmed Problem Adult health examination (200154929) Encounter for general adult medical examination without abnormal findings (Z00.00) Active confirmed Problem Essential hypertension (31120948) Hypertension, unspecified type (I10) Active confirmed Problem Essential hypertension (23948923) Hypertension, essential (I10) Active confirmed Problem Disorder of kidney and/or ureter (108569832) Kidney dysfunction (N28.9) Active confirmed Plan Of Treatment Pending Test Test Name Order Date CBC (COMPLETE BLOOD COUNT) WITH DIFF 05/2023 COMPREHENSIVE METABOLIC PANEL 10/27/2023 LIPID PANEL 10/27/2023 HEMOGLOBIN A1c 10/27/2023 TSH 10/27/2023 VITAMIN D, 1,25 DIHYDROXY LC/MS/MS 10/26 Insurance Providers Payer Name Payer Address Payer Phone Subscriber Number Group Number Insured Name Patient Relationship to Insured Coverage Start Date Coverage End Date [facility] [address] [place] [address] [id number] Roberto Trivedi Self - patient is the insured Medical (General) History Medical History History ICD Code Hypertension, essential I10
== END ==
LOC: HO.SL 14:11
PROVIDERS: PCP Student in an Organized Health Care Education/Training Program; Visit Provider Student in an Organized Health Care Education/Training Program
DX: G47.19 Other hypersomnia (principal); I10 Essential (primary) hypertension; I42.9 Cardiomyopathy, unspecified; R06.83 Snoring; R53.83 Other fatigue; E66.9 Obesity, unspecified
CPT/HCPCS: 95806

== ENCOUNTER → 2025-02-19 14:19 | Outpatient (BNV) | payer BC, SELFPAY | PROVIDERS: PCP Student in an Organized Health Care Education/Training Program; Visit Provider Psychiatry & Neurology Neurology | DX: G47.33 Obstructive sleep apnea (adult) (pediatric) (principal) | CPT/HCPCS: 95806 ==